=== PATIENT | female | born 1960 | race Caucasian/White ===

== ENCOUNTER 2018-08-31 12:32 | Emergency (ER) | payer SELFPAY ==
[2018-08-31 13:13] LABS: Bilirubin Negative (Negative); Blood, Urine Negative (Negative); Clarity CLEAR (Clear); Glucose, Urine (Dipstick) Negative (Negative); Leukocyte Negative (Negative); Nitrite Negative (Negative); Protein, Urine (Dipstick) Negative (Neg-Trace); Specific Gravity, Urine 1.009 (1.002-1.036); Urobilinogen 0.2 mg/dL (0.2-1.0); pH, Urine 6.5 (5.0-9.0)
[2018-08-31] MEDS ORDERED: Ketorolac Tromethamine 60 MG/2 ML VIAL ONE (13:35)
--- NOTE | 2018-08-31 14:26 | CT ---
CT OF ABDOMEN AND PELVIS: Date: 08-31-18 Comparison: None. History: Right sided flank pain. Technique: Axial CT imaging at 5 mm intervals from lung bases through pubic symphysis without contras t. Coronal reformatted imaging obtained. FINDINGS: The lack of contrast media limits assessment of the imaged viscera, bowel, vascular structures, and f or lymphadenopathy. The imaged lung bases are unremarkable. No free intraperitoneal air or fluid is evident. There is a nonspecific lesion within the left lobe of the liver which measures at least 7.7 cm in tra nsverse dimension. Its internal Hounsfield units are approximately 35-40, evidence of a solid mass. N o internal calcification or gas. Limited assessment demonstrates no additional liver lesion. Gallbladder, spleen, pancreas, adrenal glands and kidneys are unremarkable. No evidence for obstructive uropathy or nephrolithiasis is appreciated on either side. There is incompletely assessed scattered atherosclerotic calcification of the abdominal aorta and its branches. There is focal ectasia of the infrarenal abdominal aorta noted. There is diverticulosis of the sigmoid colon with no evidence for diverticulitis. Partially imaged appendix appears grossly unremarkable. Review of the osseous structures demonstrates no acute findings. IMPRESSION: 1. No evidence for obstructive uropathy or nephrolithiasis. Diverticulosis of the colon noted with no evidence for diverticulitis. 2. Appendix appears grossly unremarkable. 3. Oval homogenous solid mass within the left lobe of the liver for which follow up imaging is requir ed. Recommend contrast enhanced MRI of the abdomen using hepatic mass protocol for full assessment. Dr. Hughes made aware at 1:45 p.m. 08-31-18. Code CR POS: [facility]
== END 2018-08-31 13:59 | disposition home or self-care (01) ==
LOC: ERS 12:32
DX: R10.9 Unspecified abdominal pain (principal)
CPT/HCPCS: 74176; 81003; 96372; J1885

== ENCOUNTER 2018-09-29 08:48 | Outpatient (CLI) | payer OTHER ==
--- NOTE | 2018-09-29 15:41 | PET ---
PET CT FROM SKULL TO MID THIGH: INDICATION: History of left upper lobe lung malignancy. RADIOPHARMACEUTICAL: 11.5 mCi F18-FDG IV. TECHNIQUE: PET CT images were obtained from the skull to mid thigh following introduction of the radiopharmaceut ical. CT images were obtained for attenuation correction purposes only. FINDINGS: The biodistribution for the examination appears acceptable. CHEST: There is a very large left suprahilar mass with associated mediastinal invasion measuring 8.3 cm in s ize with a peak SUV uptake of 8.37 and mean uptake of 6.79. There is left upper lobe collapse. There is a moderate left pleural effusion with no associated hypermetabolic activity. There are hypermetabolic lymph nodes seen within the mediastinum superiorly, as well as within the le ft infrahilar region. The left infrahilar hypermetabolic node is seen adjacent to the left pulmonary vein with peak SUV uptake of 4.61 and mean uptake of 3.79. There are numerous supraclavicular hyperme tabolic lymph nodes and left axillary lymph nodes. One of the largest left supraclavicular lymph node s is seen on axial image 58 measuring 3.5 cm with a mean uptake of 6.54 and peak uptake of 7.81. Ther e is an extrapleural hypermetabolic nodule seen involving the left lung apex on axial image 59 with a peak SUV uptake of 4.92. There is scattered emphysema. No hypermetabolic pulmonary nodule is seen in volving the right lung. There are prominent areas of scarring involving the right lung apex. Abdomen/Pelvis: There is a large hypermetabolic mass involving the left hepatic lobe measuring 7.0 cm with a peak act ivity of 8.02 and mean activity of 6.43. No additional hypermetabolic mass is evident. There is back ground enteric and renal collecting system activity. Skin/Osseous Structures: There is a hypermetabolic, partially lytic lesion involving the right acetabulum on axial image 203 w ith a peak activity of 5.07 and mean activity of 5.04. There is prominent activity seen diffusely thr oughout the T10 vertebral body without overt evidence of fracture. No additional hypermetabolic skin or osseous lesion is identified. IMPRESSION: Abnormal PET scan: 1. Hypermetabolic left suprahilar mass with hypermetabolic left hilar, superior mediastinal, left madden praclavicular, and left axillary lymph nodes. 2. Osseous metastatic disease to the T10 vertebral body, as well as the right acetabulum. 3. Large left hepatic lobe mass lesion that is hypermetabolic, suspicious for hepatic metastatic dis ease. 4. Moderate left pleural effusion without evidence of hypermetabolic activity. There is complete lef t upper lobe collapse due to the large left suprahilar mass lesion. POS: [facility]
== END 2018-09-29 08:49 | disposition home or self-care (01) ==
LOC: MRI 08:48
PROVIDERS: ATTEND Internal Medicine Hematology & Oncology
DX: C34.12 Malignant neoplasm of upper lobe, left bronchus or lung (principal); R16.0 Hepatomegaly, not elsewhere classified; R91.8 Other nonspecific abnormal finding of lung field; C79.51 Secondary malignant neoplasm of bone; J90 Pleural effusion, not elsewhere classified
CPT/HCPCS: 70553; 74183; 78815; A9552

== ENCOUNTER 2018-10-03 09:00 | Outpatient (CLI) | payer OTHER ==
[2018-10-03] MEDS ORDERED: Gadobenate Dimeglumine 529 MG/1 ML (20ML VIAL) ONE (11:24)
--- NOTE | 2018-10-03 12:19 | MRI ---
MRI BRAIN WITH AND WITHOUT CONTRAST: Date: 10/03/18 INDICATION: History of pulmonary malignancy. Clinical evaluation for staging/metastasis. No prior imaging compari son available. FINDINGS: There is no evidence of ventriculomegaly, significant intracranial mass effect, or midline shift. No acute territorial infarction or evidence of intracranial hemorrhage. There is a subtle signal abnorma lity focus of the left occipital lobe with punctate restricted effusion and faint hyperintensity on p ostcontrast imaging within this region indicating a tiny enhancing metastatic lesion. No additional s ites of pathologic intra-axial enhancement are confirmed. The skull base flow-voids are maintained. T here is limited evaluation by motion artifact. Imaged paranasal sinuses are clear. IMPRESSION: Subtle signal abnormality focus of the left occipital lobe with possible faint enhancement, 4-5 mm in size. Early metastatic lesion is the diagnosis of exclusion. Therefore, recommend a short-term follo w-up pre and postcontrast MRI brain for continued assessment. Initial follow-up may be obtained at 4- 6 week time frame for reassessment. CODE T. POS: [facility]
--- NOTE | 2018-10-03 15:26 | MRI ---
MRI OF THE ABDOMEN WITH AND WITHOUT CONTRAST: INDICATION: History of lung cancer and metastatic disease. COMPARISON: PET CT 09/29/[address] of the abdomen and pelvis dated 08/31/2018. TECHNIQUE: Multiplanar, multisequence MR images were obtained of the abdomen utilizing liver mass protocol. 10 cc of MultiHance were utilized for the exam. FINDINGS: There is a large enhancing 7.8 x 6.0 x 7.8 cm mass within the left hepatic lobe corresponding to the hepatic metastatic lesion seen on the prior PET CT. No additional focal hepatic lesion is evident. There is an osseous metastatic lesion at the T10 vertebral level. No lymphadenopathy is evident. Th ere is a large left pleural effusion. IMPRESSION: 1. Koby left hepatic lobe metastatic lesion with heterogeneous internal and peripheral enhancement. 2. T10 vertebral body metastatic lesion. 3. Large left pleural effusion. POS: [facility]
== END 2018-10-03 09:01 | disposition home or self-care (01) ==
LOC: MRI 09:00
PROVIDERS: ATTEND Internal Medicine Hematology & Oncology
DX: C34.12 Malignant neoplasm of upper lobe, left bronchus or lung (principal); R16.0 Hepatomegaly, not elsewhere classified; C78.7 Secondary malignant neoplasm of liver and intrahepatic bile duct; J90 Pleural effusion, not elsewhere classified; C79.51 Secondary malignant neoplasm of bone; G93.89 Other specified disorders of brain
CPT/HCPCS: 70553; 74183; A9579

== ENCOUNTER 2018-10-03 11:12 | Outpatient (CLI) | payer OTHER, SELFPAY ==
[2018-10-03 13:07] LABS: #Basophils 0.1 thou/uL (0.0-0.2); #Eosinphils 0.1 thou/uL (0.0-0.7); #Lymphocytes 1.7 thou/uL (1.20-3.40); #Monocytes 0.9 thou/uL (0.11-0.59); #Neutrophils 8.3 thou/uL (1.40-6.50); %Basophils 0.9 % (0.0-1.0); %Eosinophils 0.7 % (0.0-10.0); %Lymphocytes 15.5 % (21.0-51.0); %Monocytes 8.2 % (0.0-10.0); %Neutrophils 74.7 % (42.0-75.0); Hemoglobin 14.1 g/dL (12.0-16.0); Mean Corpuscular HGB CONC 34.4 g/dL (32.0-36.0); Mean Corpuscular Hemoglobin 33.3 pg (27.0-31.0); Mean Corpuscular Volume 96.8 fL (78.0-98.0); Mean Platelet Volume 6.7 fL (7.4-10.4); Platelet Count 521 thou/uL (130-400); RBC Distribution Width 13.2 % (11.5-14.5); Red Blood Cell (RBC) Count 4.22 mill/uL (4.20-5.40); White Blood Cell (WBC) Count 11.1 thou/uL (4.8-10.8)
[2018-10-03 13:30] LABS: Anion Gap 13 mmol/L (10-20); BUN (Urea Nitrogen) 11 mg/dL (9.8-20.1); Calc. Creatinine Clearance 0 mL/min (70-130); Calcium 9.1 mg/dL (7.8-10.44); Carbon Dioxide 26 mmol/L (22-29); Chloride 101 mmol/L (98-107); Estimated GFR-MDRD Greater than 90; Glucose 89 mg/dL (70-105); Potassium 3.9 mmol/L (3.5-5.1); Sodium 136 mmol/L (136-145)
--- NOTE | 2018-10-03 14:33 | RAD ---
CHEST 2 VIEWS: HISTORY: Lung cancer. FINDINGS: There is an opacity in the left perihilar region compatible with a left lung mass. There are diminis hed lung volumes with elevation of the left hemidiaphragm. There is compensatory hyperinflation of t he right lung. Emphysematous changes in the right lung apex are noted. There is no pneumothorax or acute osseous abnormalities. IMPRESSION: Left hilar mass with associated findings as described above. POS: [facility]
== END 2018-10-03 11:13 | disposition home or self-care (01) ==
LOC: LABBT 11:12
PROVIDERS: ATTEND Specialist
DX: Z01.818 Encounter for other preprocedural examination (principal); C80.1 Malignant (primary) neoplasm, unspecified; R91.8 Other nonspecific abnormal finding of lung field
CPT/HCPCS: 71046; 80048; 85025; 93005; 93010

== ENCOUNTER 2018-10-04 10:22 | Day surgery (SDC) | payer OTHER ==
[2018-10-04] MEDS ORDERED: Ketorolac Tromethamine 30 MG/ML VIAL ONE (10:51)
[2018-10-04] MEDS ORDERED: CEFAZOLIN 2 GM/50 ML BAG ONE (10:51)
[2018-10-04] MEDS ORDERED: Fentanyl 100 MCG/2 ML VIAL ONE (13:02)
[2018-10-04] MEDS ORDERED: Propofol 500 MG/50 ML VIAL ONE (13:02)
[2018-10-04] MEDS ORDERED: Lidocaine 2% Jelly 5 ML TUBE ONE (13:02)
[2018-10-04] MEDS ORDERED: Bupivacaine/Epinephrine 0.25% 30 ML VIAL ONE (13:05)
[2018-10-04] MEDS ORDERED: Lidocaine 1% (PF) 30 ML VIAL ONE (13:05)
[2018-10-04] MEDS ORDERED: PROPOFOL 200 MG/20 ML VIAL ONE (14:21)
--- NOTE | 2018-10-04 15:22 | RAD ---
CHEST ONE VIEW: HISTORY: Mediport catheter placement. COMPARISON: Prior day's study. FINDINGS: A left hilar mass density is again noted. Slightly increased density over the left chest is probably just related to the difference in technique. There has been interval placement of a right-sided Med iport catheter. The catheter tip overlies the superior vena cava. I do not see any signs of pneumot horax. IMPRESSION: Interval placement of right-sided Mediport catheter. No signs of pneumothorax. POS: [facility]
--- NOTE | 2018-10-04 21:19 | OP ---
DATE OF PROCEDURE: 10/04/2018 PREOPERATIVE DIAGNOSIS: Left lung cancer, metastatic to liver. POSTOPERATIVE DIAGNOSIS: Left lung cancer, metastatic to liver. OPERATION PERFORMED: Placement of low-profile right subclavian power compatible MediPort. ANESTHESIA: Total intravenous anesthesia per Malu Taylor CRNA INDICATIONS: The patient is a 58-year-old white female, who presents with apparent metastatic lung cancer. MediPort placement is requested for chemotherapy administration. DESCRIPTION OF OPERATION: Informed consent was obtained. The patient was taken to the operating room where total intravenous anesthesia was obtained with the patient in supine position. Right periclavicular area was prepped with ChloraPrep and draped in sterile fashion. Local anesthetic was infiltrated and a large-gauge needle was passed under the clavicle in the subclavian vein. Guidewire was passed through the needle and fluoroscopically confirmed to enter the superior vena cava. Additional local anesthetic was infiltrated and transverse incision was created based on needle insertion site. A subcutaneous pocket was dissected inferiorly. Introducer dilator was passed over the guidewire under fluoroscopic guidance. The guidewire and dilator were removed, and the catheter was passed through the introducer. The tip of the catheter was positioned at the atriocaval junction and the catheter was trimmed to the appropriate length and secured to the locking hub of the MediPort. The port was then placed in the subcutaneous pocket where it was secured to the pectoral fascia with 2 interrupted sutures of 3-0 Prolene. The incision was then closed in layers with 3-0 and 4-0 Monocryl. Additional local anesthetic was infiltrated. The port was cannulated with a Xiao needle and it aspirated blood freely and was flushed with heparinized saline. Dermabond was placed externally on the skin incision. There were no complications. Blood loss was negligible. The patient tolerated the procedure well and was taken to recovery room in stable condition. FINDINGS: The port was placed uneventfully into the right subclavian vein. A low-profile power compatible port was selected. She had typical anatomy internally and externally. There was essentially no blood loss and no complications. Postprocedure chest x-ray shows good position of the port and catheter. Job ID: [id number]
== END 2018-10-04 18:30 | disposition home or self-care (01) ==
LOC: SDC 10:22
PROVIDERS: ATTEND Specialist
PROC: B518ZZA Fluoroscopy of Superior Vena Cava, Guidance (ICD-10-PCS; principal; 2018-10-04)
PROC: 02HV33Z Insertion of Infusion Device into Superior Vena Cava, Percutaneous Approach (ICD-10-PCS; principal; 2018-10-04)
DX: C34.92 Malignant neoplasm of unspecified part of left bronchus or lung (principal); C78.7 Secondary malignant neoplasm of liver and intrahepatic bile duct; Z90.710 Acquired absence of both cervix and uterus; Z98.890 Other specified postprocedural states
CPT/HCPCS: 71045; C1788; J0131; J1642; J1885; J2001; J2704; J3010

== ENCOUNTER 2018-10-12 17:50 | Inpatient (IN) | payer OTHER, SELFPAY ==
[~2018-10-12 17:50] MED LIST: ISOVUE-370 76%-LOCM 1 ML ONE
[2018-10-12 18:27] LABS: #Basophils 0.1 thou/uL (0.0-0.2); #Eosinphils 0.1 thou/uL (0.0-0.7); #Lymphocytes 1.4 thou/uL (1.20-3.40); #Neutrophils 10.5 thou/uL (1.40-6.50); %Basophils 0.8 % (0.0-1.0); %Eosinophils 0.4 % (0.0-10.0); %Lymphocytes 10.5 % (21.0-51.0); %Monocytes 7.8 % (0.0-10.0); %Neutrophils 80.5 % (42.0-75.0); Hemoglobin 14.1 g/dL (12.0-16.0); Mean Corpuscular HGB CONC 31.5 g/dL (32.0-36.0); Mean Corpuscular Hemoglobin 31.3 pg (27.0-31.0); Mean Corpuscular Volume 99.2 fL (78.0-98.0); Mean Platelet Volume 6.6 fL (7.4-10.4); Platelet Count 618 thou/uL (130-400); RBC Distribution Width 13.2 % (11.5-14.5)
[2018-10-12] MEDS ORDERED: Lorazepam 2 MG/ML VIAL ONE (18:43)
[2018-10-12 18:51] LABS: ALT (SGPT) 10 U/L (8-55); AST (SGOT) 16 U/L (5-34); Albumin 3.2 g/dL (3.5-5.0); Alkaline Phosphatase 155 U/L (40-150); Anion Gap 18 mmol/L (10-20); BUN (Urea Nitrogen) 17 mg/dL (9.8-20.1); Bilirubin, Total 0.3 mg/dL (0.2-1.2); CK (CPK) 36 U/L (29-168); Calc. Creatinine Clearance 0 mL/min (70-130); Calcium 9.4 mg/dL (7.8-10.44); Carbon Dioxide 21 mmol/L (22-29); Chloride 102 mmol/L (98-107); Estimated GFR-MDRD Greater than 90; Glucose 96 mg/dL (70-105); Potassium 4.6 mmol/L (3.5-5.1); Protein, Total 7.2 g/dL (6.0-8.3); Sodium 136 mmol/L (136-145)
--- NOTE | 2018-10-12 19:53 | RAD ---
FRONTAL RADIOGRAPH CHEST 10/12/18 COMPARISON: 10/04/18 HISTORY: Mediport placement, lung cancer. FINDINGS: CT injectable right sided Port-A-Cath noted, distal tip overlying the expected location of the cavoat rial junction. Anatomy is distorted secondary to rotation to the left as well as near complete opacif ication of the left hemithorax with associated volume loss. Findings are consistent with underlying m ass lesion in the left hilar region with extensive opacity involving the left lung and associated lef t pleural fluid. No pneumothorax is evident. IMPRESSION: Right sided CT injectable Port-A-Cath. Near complete opacification of the left hemithorax. POS: [facility]
--- NOTE | 2018-10-12 21:09 | CT ---
CT ANGIOGRAM CHEST 10/12/18 COMPARISON: None. HISTORY: Shortness of breath, history of lung cancer. TECHNIQUE: Axial CT imaging at 2.5 mm intervals through the chest with IV contrast using CT angiogram protocol. Coronal and oblique sagittal 3D reformatted imaging obtained. FINDINGS: Extensive bulky lymphadenopathy is noted in the left axillary region, with lymph nodes measuring up t o 3.4 cm in short axis dimension. There are numerous enlarged nodes in the supraclavicular region on the left, including a node abutting the lateral aspect of the left lobe of the thyroid gland measurin g 2.5 cm. There is a large soft tissue mass within the superior mediastinum measuring at least 6.6 cm in AP dim ension and 4.9 cm in transverse dimension encircling the proximal aspect of the left common carotid a rtery and the left subclavian artery. There is a huge mass which is difficult to accurately measure w ithin the left and suprahilar region abutting the pulmonary arterial trunk on the left which measures at least 6 cm in AP dimension. No axillary lymphadenopathy noted on the right. No right hilar adenopathy. Review of the upper abdomen demonstrates a vague low density lesion within the left lobe of the liver measuring at least 7.8 cm in transverse dimension suspicious for metastatic disease, better assessed on PET CT performed 09/29/18. There is a large left sided pleural effusion with partial collapse of the left lower lobe. Tumor completely encircles the pulmonary artery supplying the left lung with marked narrowing of the pulmonary artery supplying the left lung. There is obliteration of the pulmonary artery supplying the left upper lobe secondary to probable invasion and/or obstruction from a huge left upper lobe mass l esion. Tumor replaces the majority of the left upper lobe. There is no feeling defect seen within the pulmonary arterial vasculature supplying the left lower lobe. The pulmonary arterial vasculature on the right appears unremarkable. The right lung demonstrates a nonspecific pleural based nodule within the superior segment right lowe r lobe on image 54 measuring 6 mm. There are prominent emphysematous changes noted within the right l braulio apex with apical pleural thickening and fibrotic change involving the superior most aspect of the right upper lobe in the right lung apex, better assessed on the 09/29/[address]. Ill-defined soft tissue mass is seen along the right lateral aspect of the T10 vertebral body extendi ng into the region of the neural foramen on the right at T10-11, suggesting metastatic disease. [place] us metastatic disease better assessed on recent PET scan. IMPRESSION: There is extensive malignancy which includes bulky axillary and supraclavicular adenopathy on the lef t, large infiltrating mediastinal mass lesion on the left with mass lesion in the left hilum extendin g into the left upper lobe. Left liver lesion and lesion associated with the right lateral aspect of T10 vertebral body are consistent with metastatic disease. Left pleural effusion noted, presumably ma lignant in nature. There is no discrete pulmonary arterial filling defect. Of note, secondary to extr insic mass effect, there is severe narrowing of the main pulmonary artery on the left and there is ob literation of the pulmonary arterial vasculature supplying the left upper lobe. POS: [facility]
[2018-10-12] MEDS ORDERED: Morphine 4 MG/ML VIAL ONE (21:12)
[2018-10-13] MEDS ORDERED: Ondansetron ODT 4 MG TAB SL PRN (01:19)
[2018-10-13] MEDS ORDERED: Ondansetron PF 4 MG/2 ML Vial IVP PRN (01:19)
[2018-10-13] MEDS ORDERED: Acetaminophen 325 MG TAB PO PRN (01:19)
[2018-10-13] MEDS: HYDROcodone/Acetaminophen 7.5/325 mg Tablet PO PRN ×6 (01:20→22:30)
[2018-10-13] MEDS: Sodium Chloride 0.9% 1,000 ML IV SCH ×3 (01:22→16:09)
--- NOTE | 2018-10-13 03:57 | HP ---
PRIMARY CARE PHYSICIAN: Dr. Tolentino. ONCOLOGIST: Dr. Gonzalez. CODE STATUS: The patient is a full code. CHIEF COMPLAINT: Shortness of breath. HISTORY OF PRESENT ILLNESS: Ms. Simeon is a pleasant 58-year-old female, came to the emergency room for evaluation of shortness of breath and pain with inspiration. The patient reports that she is a cancer patient and she is scheduled to start chemo and radiation in October. Reports that the night before admission, it became more difficult to breathe. Reports pain and difficulty with deep breaths, and feels like she has a hard time taking even shallow breaths. Reports productive cough with white sputum for weeks. She does, however, deny any fever or chills. Denies chest pain. Reports that she was having some right flank pain in August. With CT scan, they found a mass on her liver. Eventually, this was biopsied and she was found to have metastatic disease. She had a MediPort placed on of this month and as stated above, is scheduled to start treatment on the 25 of October. With pain and increased breathing difficulty, she was told by Dr. Gonzalez's office to come to the emergency room for evaluation. In the emergency room, when I tried to get her up and ambulate her saturations dropped in the 80s and she became tachycardic. CTA was performed to rule out a PE, which did show multiple nodules. Impression was extensive malignancy which includes bulky axillary and supraclavicular adenopathy on the left, large infiltrating mediastinal mass lesion on the left with mass lesion in the left hilum extending into the left upper lobe, left liver lesion and lesion associated with the right lateral aspect of the T10 vertebral body consistent with metastatic disease. Left pleural effusion is noted, presumably malignant in nature. No discrete pulmonary arterial filling defect. Of note, secondary to an extrinsic mass effect, severe narrowing of the main pulmonary artery in the left and obliteration of the pulmonary artery vasculature supplying the left upper lobe. Based on presentation and findings, the patient will be admitted for further management. PAST MEDICAL HISTORY: None. PAST SURGICAL HISTORY: Total hysterectomy. SOCIAL HISTORY: Lives at home with her , is a 2 pack-a-day smoker x40 years. Reports recently attempting to quit. Denies any illicit drug or alcohol use. ALLERGIES: NONE. CURRENT HOME MEDICATIONS: Include; [place] 5/325 q.6 hours as needed along with some ibuprofen 400 mg q.6 hours. REVIEW OF SYSTEMS: CONSTITUTIONAL: Denies fever or chills. EYES: Denies eye pain or vision changes. ENT: Denies rhinorrhea or sore throat. CARDIOVASCULAR: Denies chest pain or palpitations. RESPIRATORY: Reports cough. Reports shortness of breath. Reports pain with inspiration. Reports sputum which is thick and clear. Denies stridor. Denies wheezing. GI: Denies abdominal pain, constipation, nausea, or diarrhea. : Denies dysuria or hematuria. MUSCULOSKELETAL: Reports some right flank-type pain. Denies back pain. Denies fall or injury. SKIN: Denies changes. Denies rash. NEUROLOGIC: Denies mental status changes or headache. PHYSICAL EXAMINATION: VITAL SIGNS: Blood pressure 114/73, pulse is 100, respiratory rate is 22, pulse ox is 96% with 2 L of oxygen. CONSTITUTIONAL: The patient appears cachectic. Inspiratory rate is increased. Appears uncomfortable, however, she is alert and oriented to person, place, and time. HEENT: Head is atraumatic and normocephalic. Eyes; eyelids are normal to inspection. Pupils are equally round and reactive to light. ENT, nares normal. Pharynx exam normal. NECK: Normal range of motion. Trachea is midline. RESPIRATORY/CHEST: Diminished sounds on the left. Extensive rhonchi, rales. Symmetric chest movement, expansion is equal. CARDIOVASCULAR: Regular heart rate and rhythm. Heart sounds are normal. ABDOMEN: Nontender. Bowel sounds are heard. BACK: Normal range of motion. No tenderness. EXTREMITIES: Upper extremities, normal range of motion. Motor strength is normal. Sensation is intact. Pulses are equal bilaterally. Lower extremities, normal inspection, normal range of motion. Motor strength is normal. Sensation intact. Pedal pulses are equal bilaterally. No edema is noted. NEURO: The patient is oriented to person, place, and time. No focal motor or sensory deficits are noted. SKIN: Normal, dry, normal in color. IMAGING: EKG shows sinus tach, pulse 106, no ectopics. Conduction is normal. ST segments are normal. VA interval 122, QRS duration 60, QT, QTc 308, 409. PERTINENT LABORATORY DATA: BNP is 34.2, troponin is undetectable. Influenza swab was negative. CK is 36. Sodium 136, potassium 4.6, chloride 102, carbon dioxide 21, gap is 18, BUN is 17, creatinine is 0.57, estimated GFR is greater than 90, glucose is 96, calcium 9.4, bilirubin 0.3, albumin 3.2, globulin 4.0, AST 16, ALT is 10, lactic acid 1.3. White blood cell count is 13, hemoglobin is 14.1, hematocrit 44.6, and platelet count 618, mean platelet volume is 6.6, neutrophil percent 80.5, lymphocytes 10.5. ASSESSMENT/PLAN: 1. Hypoxia, most likely due to extensive malignancy in the left lung. Primarily cancer lesion is unknown to patient and/or family. We will consult Dr. Gonzalez. We will keep the patient on oxygen as needed. Order neb treatments. We will check labs in the morning. 2. Hospital course will be dependent on clinical findings. Job ID: [id number]
[2018-10-13] MEDS: Lorazepam 2 MG/ML VIAL SLOW IVP PRN ×3 (04:26→22:08)
[2018-10-13 07:40] LABS: #Eosinphils 0.1 thou/uL (0.0-0.7); #Lymphocytes 1.6 thou/uL (1.20-3.40); #Monocytes 1.1 thou/uL (0.11-0.59); #Neutrophils 8.1 thou/uL (1.40-6.50); %Basophils 0.4 % (0.0-1.0); %Eosinophils 0.6 % (0.0-10.0); %Lymphocytes 14.8 % (21.0-51.0); %Monocytes 9.9 % (0.0-10.0); %Neutrophils 74.1 % (42.0-75.0); Hemoglobin 11.4 g/dL (12.0-16.0); Mean Corpuscular HGB CONC 31.7 g/dL (32.0-36.0); Mean Corpuscular Hemoglobin 31.4 pg (27.0-31.0); Mean Corpuscular Volume 98.9 fL (78.0-98.0); Mean Platelet Volume 6.8 fL (7.4-10.4); Platelet Count 486 thou/uL (130-400); RBC Distribution Width 13.1 % (11.5-14.5); Red Blood Cell (RBC) Count 3.64 mill/uL (4.20-5.40)
[2018-10-13 07:47] LABS: ALT (SGPT) Less than 7 U/L (8-55); AST (SGOT) 14 U/L (5-34); Albumin 2.6 g/dL (3.5-5.0); Alkaline Phosphatase 125 U/L (40-150); Anion Gap 15 mmol/L (10-20); BUN (Urea Nitrogen) 15 mg/dL (9.8-20.1); Bilirubin, Total 0.3 mg/dL (0.2-1.2); Calc. Creatinine Clearance 91 mL/min (70-130); Calcium 8.3 mg/dL (7.8-10.44); Carbon Dioxide 17 mmol/L (22-29); Chloride 105 mmol/L (98-107); Estimated GFR-MDRD Greater than 90; Globulin 3.1 g/dL (2.4-3.5); Glucose 135 mg/dL (70-105); Potassium 3.5 mmol/L (3.5-5.1); Protein, Total 5.7 g/dL (6.0-8.3); Sodium 133 mmol/L (136-145)
[2018-10-13] MEDS: Famotidine 20 MG TAB PO SCH ×2 (08:27→20:16)
[2018-10-13] MEDS: Enoxaparin Sodium 30 MG/0.3 ML SYRINGE SC SCH (08:29)
[2018-10-13] MEDS ORDERED: Prevnar 13-Val Conj/PF 0.5 ML SYRINGE IM ONE (09:00)
--- NOTE | 2018-10-13 13:21 | CON ---
DATE OF CONSULTATION: 10/13/2018 REASON FOR CONSULTATION: Small cell lung cancer. HISTORY OF PRESENT ILLNESS: A 58-year-old female with history of extensive stage small cell lung cancer, presenting to the hospital with shortness of breath and pleuritic chest pain. The patient was recently diagnosed with extensive stage small cell carcinoma of the lung, status post biopsy of a left supraclavicular lymph node on September 22, 2018. The patient initially presented with right flank pain and had a CT looking for kidney stone that showed a solid mass in the left lobe of the liver. She then had a CAT scan of the chest, abdomen, and pelvis that showed a mass involving the left hilum measuring 7.7 x 4.4 cm involving the left main pulmonary artery with numerous pulmonary nodules along with supraclavicular lymphadenopathy. PET scan on September 29 showed an 8.3-cm left suprahilar mass with mediastinal invasion, left upper lobe collapse, mediastinal lymphadenopathy , left intra-hilar, supraclavicular, and axillary lymphadenopathy, and 7 cm left hepatic lobe mass with lytic lesions in the right acetabulum and T10. The patient was due to start chemotherapy on October 25 with carboplatin, TRACK REPAIR SUPERVISOR-16, and Tecentriq, however is now presenting to the hospital with increasing shortness of breath and hypoxia. The patient says that this has worsened in the last few days along with chest pain that is worse with inspiration. She denies any fevers or chills at this time. Her right flank pain is severe but stable. The patient called my office yesterday and was instructed to go to the ER for evaluation. The patient's oxygen saturations dropped in the 80s on ambulation in the ER and she became tachycardic. CT angio ruled out a pulmonary embolism, however, did show progression of disease in the chest. Since admission to the hospital, the patient's symptoms have improved and she is currently maintaining her oxygen saturation on 2 to 3 L via nasal cannula. She is also receiving breathing treatments. REVIEW OF SYSTEMS: Ten-point review of systems negative except as per HPI. PAST MEDICAL HISTORY: Extensive stage small cell carcinoma. PAST SURGICAL HISTORY: Total hysterectomy. SOCIAL HISTORY: Smokes 2 pack a day for the last 40 years. ALLERGIES: NONE. CURRENT MEDICATIONS: Reviewed. PHYSICAL EXAMINATION: VITAL SIGNS: Temperature 97.2, pulse 92, respirations 16, saturating 96% on 2 L by nasal cannula, and blood pressure 103/68. GENERAL APPEARANCE: The patient is lying in bed, in no acute distress, currently receiving breathing treatment. HEENT: Normocephalic, atraumatic. No scleral icterus noted. NECK: Supple. CARDIOVASCULAR: S1 and S2 with regular rate and rhythm. RESPIRATIONS: Markedly diminished breath sounds in the left lung avery with extensive rhonchi. Respirations are mildly labored. ABDOMEN: Soft, nondistended, and nontender. EXTREMITIES: No edema. SCDs are in place. NEUROLOGIC: Cranial nerves II through XII are grossly intact and otherwise nonfocal examination. PSYCHIATRIC: The patient is anxious, but awake, alert, and oriented x3. LABORATORY DATA: White blood cells 11.0, hemoglobin 11.4, and platelets 486. Sodium 133, potassium 3.5, BUN 15, creatinine 0.58, and glucose 116. Albumin 2.6, bilirubin 0.3, AST 14, ALT less than 7, and alkaline phosphatase 125. Troponin less than 0.010. BNP 34.2. IMAGING DATA: CT angio of the chest dated October 12, 2018 shows extensive malignancy including bulky axillary and supraclavicular adenopathy on the left, large infiltrating mediastinal mass lesion on the left with mass lesion in the left hilum extending into the left upper lobe. Left liver lesion and lesion associated with the right lateral aspect of T10 vertebral body are consistent with metastatic disease. Left pleural effusion noted, presumably malignant. There is no discrete pulmonary arterial filling defect. Though of note secondary to extrinsic mass effect, there is severe narrowing of the main pulmonary artery on the left and there is obliteration of the pulmonary arterial vasculature supplying in the left upper lobe. ASSESSMENT AND PLAN: A 58-year-old female with extensive stage small cell lung cancer with mets to liver, bone, and supraclavicular and axillary lymphadenopathy, presenting to the hospital with worsening shortness of breath and hypoxia. The patient is currently stable on oxygen by nasal cannula, however, has progressively worsened over the last week and requires initiation of chemotherapy at this time. I have discussed this with the patient. I spoke to the Oncology nurses and the pharmacy and her chemotherapy will be ready tomorrow and would like to start at this time. She will receive carboplatin and TRACK REPAIR SUPERVISOR-16, however, Tecentriq is not able to be acquired emergently due to cost and we will plan to give this with her 2nd cycle of chemotherapy. Recommend monitoring her blood counts daily with transfusion goals of hemoglobin greater than 70 and platelets greater than 50, though at this time, I do not believe these will become an issue during this hospitalization. We will support her with Fulphila on day 4 of treatment. We will continue to monitor her symptoms and recommend ongoing oxygen and breathing treatments at this time. Thank you for this consult. Job ID: [id number] MTDD
--- NOTE | 2018-10-13 14:45 | PDOC.PN ---
- Subjective Encounter Start Date: 10/13/18 Encounter Start Time: 10:30 Subjective: pt up in bed no complains - Objective Resuscitation Status - Order Detail: 10/12/18 23:41 Resuscitation Status Routine Co-Sign Provider: Resuscitation Status: FULL: Full Resuscitation Discussed with: patient and family Vital Signs & Weight: Vital Signs (12 hours) Temp Pulse Resp BP Pulse Ox 10/13/18 14:41 92 18 93 L 10/13/18 11:26 97.2 F L 92 16 103/68 96 10/13/18 08:12 96 10/13/18 08:10 95 16 96 10/13/18 08:00 97.3 F L 95 16 100/67 96 Weight Weight 119 lb 14.903 oz I&O: 10/12/18 10/13/18 10/14/18 06:59 06:59 06:59 Intake Total 1 Balance 1 Result Diagrams: 10/13/18 06:52 10/13/18 06:52 Additional Labs: Accuchecks 10/13/18 11:26 POC Glucose 116 H Phys Exam - Physical Examination Neck: no nodes, no JVD, supple, full ROM decreased breath sound to left lung Cardiovascular: RRR, no significant murmur, no rub, gallop, irregular Dx/Plan (1) Acute respiratory failure with hypoxia Code(s): J96.01 - ACUTE RESPIRATORY FAILURE WITH HYPOXIA Status: Acute (2) Small cell carcinoma Code(s): C80.1 - MALIGNANT (PRIMARY) NEOPLASM, UNSPECIFIED Status: Acute - Plan pt to start chemo jacqueline -: will decrease iv fluids * . Review of Systems - Review of Systems Respiratory: Shortness of Breath Cardiovascular: negative: chest pain, palpitations, orthopnea, paroxysmal nocturnal dyspnea, edema, light headedness, other Gastrointestinal: negative: Nausea, Vomiting, Abdominal Pain, Diarrhea, Constipation, Melena, Hematochezia, Other Genitourinary: negative: Dysuria, Frequency, Incontinence, Hematuria, Retention , Other - Medications/Allergies Allergies/Adverse Reactions: Allergies Allergy/AdvReac Type Severity Reaction Status Date / Time No Known Allergies Allergy Verified 10/03/18 12:20 Medications: Current Medications Hydrocodone Bitart/Acetaminophen ([place] 7.5/325) 1 tab PO Q4H PRN PRN Reason: Moderate Pain (4-6) Last Admin: 10/13/18 12:38 Dose: 1 tab Albuterol/Ipratropium (Duoneb) 3 ml NEB [id number] [facility] Last Admin: 10/13/18 14:41 Dose: 3 ml Enoxaparin Sodium (Lovenox) 30 mg SC 0900 [facility] Last Admin: 10/13/18 08:29 Dose: 30 mg Famotidine (Pepcid) 20 mg PO BID [facility] Last Admin: 10/13/18 08:27 Dose: 20 mg Sodium Chloride (Normal Saline 0.9%) 1,000 mls @ 125 mls/hr IV .Q8H [facility] Last Admin: 10/13/18 08:29 Dose: 1,000 mls Lorazepam (Ativan) 1 mg SLOW IVP Q4H PRN PRN Reason: Anxiety/Agitation Last Admin: 10/13/18 04:26 Dose: 1 mg Sodium Chloride (Flush - Normal Saline) 10 ml IVF Q12HR [facility] Last Admin: 10/13/18 08:29 Dose: Not Given Sodium Chloride (Flush - Normal Saline) 10 ml IVF PRN PRN PRN Reason: Saline Flush
[2018-10-14] MEDS: HYDROcodone/Acetaminophen 7.5/325 mg Tablet PO PRN ×3 (02:48→20:18)
[2018-10-14 05:09] LABS: #Basophils 0.1 thou/uL (0.0-0.2); #Lymphocytes 1.3 thou/uL (1.20-3.40); #Monocytes 1.2 thou/uL (0.11-0.59); #Neutrophils 8.9 thou/uL (1.40-6.50); %Basophils 0.6 % (0.0-1.0); %Eosinophils 0.4 % (0.0-10.0); %Lymphocytes 11.2 % (21.0-51.0); %Monocytes 10.5 % (0.0-10.0); %Neutrophils 77.3 % (42.0-75.0); Hemoglobin 10.2 g/dL (12.0-16.0); Mean Corpuscular HGB CONC 32.2 g/dL (32.0-36.0); Mean Corpuscular Hemoglobin 31.9 pg (27.0-31.0); Mean Corpuscular Volume 99.1 fL (78.0-98.0); Mean Platelet Volume 6.8 fL (7.4-10.4); Platelet Count 442 thou/uL (130-400); Red Blood Cell (RBC) Count 3.21 mill/uL (4.20-5.40); White Blood Cell (WBC) Count 11.5 thou/uL (4.8-10.8)
[2018-10-14 05:34] LABS: ALT (SGPT) 7 U/L (8-55); AST (SGOT) 12 U/L (5-34); Albumin 2.3 g/dL (3.5-5.0); Alkaline Phosphatase 114 U/L (40-150); Anion Gap 12 mmol/L (10-20); BUN (Urea Nitrogen) 9 mg/dL (9.8-20.1); Bilirubin, Total 0.2 mg/dL (0.2-1.2); Calc. Creatinine Clearance 105 mL/min (70-130); Carbon Dioxide 21 mmol/L (22-29); Chloride 104 mmol/L (98-107); Estimated GFR-MDRD Greater than 90; Globulin 2.9 g/dL (2.4-3.5); Glucose 92 mg/dL (70-105); Potassium 3.6 mmol/L (3.5-5.1); Protein, Total 5.2 g/dL (6.0-8.3); Sodium 133 mmol/L (136-145)
[2018-10-14] MEDS: Lorazepam 2 MG/ML VIAL SLOW IVP PRN ×2 (05:49→09:48)
[2018-10-14] MEDS: Enoxaparin Sodium 30 MG/0.3 ML SYRINGE SC SCH (09:38)
[2018-10-14] MEDS: Famotidine 20 MG TAB PO SCH ×2 (09:38→20:18)
[2018-10-14] MEDS: Sodium Chloride 0.9% 1,000 ML IV SCH (09:42)
[2018-10-14] MEDS: Morphine 4 MG/ML VIAL SLOW IVP PRN ×2 (11:46→14:59)
[2018-10-14] MEDS ORDERED: Dexamethasone 10 MG/ML VIAL SLOW IVP SCH (12:15)
[2018-10-14] MEDS ORDERED: CARBOPLATIN IVPB SCH (12:15)
[2018-10-14] MEDS ORDERED: SODIUM CHLORIDE 0.9% IVPB SCH ×2 (12:15→12:30)
[2018-10-14] MEDS ORDERED: PALONOSETRON HCL 0.05 MG/ML 5 ML VIAL IVP SCH (12:15)
[2018-10-14] MEDS ORDERED: ETOPOSIDE IVPB SCH (12:30)
[2018-10-14 13:14] LABS: Uric Acid 2.9 mg/dL (2.6-6.0)
[2018-10-14 13:33] LABS: T4 5.2 ug/dL (4.87-11.72); Thyroid Stimulating Hormone 3.1786 uIU/mL (0.35-4.94)
[2018-10-14] MEDS ORDERED: Lorazepam 0.5 MG TAB PO PRN (13:33)
--- NOTE | 2018-10-14 14:38 | PDOC.PN ---
- Subjective Encounter Start Date: 10/14/18 Encounter Start Time: 11:00 Subjective: pt up in bed feels sob - Objective Resuscitation Status - Order Detail: 10/12/18 23:41 Resuscitation Status Routine Co-Sign Provider: Resuscitation Status: FULL: Full Resuscitation Discussed with: patient and family Vital Signs & Weight: Vital Signs (12 hours) Temp Pulse Resp BP Pulse Ox 10/14/18 13:17 95 24 H 96 10/14/18 12:00 97.9 F 109 H 20 117/56 L 94 L 10/14/18 08:00 2 L 10/14/18 07:48 97.9 F 99 18 110/56 L 93 L 10/14/18 06:22 87 16 94 L 10/14/18 03:43 98.6 F 90 16 98/53 L 94 L Weight Admit Weight 119 lb 14.903 oz Weight 119 lb I&O: 10/13/18 10/14/18 10/15/18 06:59 06:59 06:59 Intake Total 1 320 Balance 1 320 Result Diagrams: 10/14/18 04:06 10/14/18 04:06 Additional Labs: Accuchecks 10/13/18 17:26 POC Glucose 100 Phys Exam - Physical Examination Neck: no nodes, no JVD, supple, full ROM decreased breath sounds to left lung Cardiovascular: RRR, no significant murmur, no rub, gallop, irregular Dx/Plan (1) Acute respiratory failure with hypoxia Code(s): J96.01 - ACUTE RESPIRATORY FAILURE WITH HYPOXIA Status: Acute (2) Small cell carcinoma Code(s): C80.1 - MALIGNANT (PRIMARY) NEOPLASM, UNSPECIFIED Status: Acute - Plan pt to get chemo today -: small cell of lung with mets -: will add prn pain meds * . Review of Systems - Review of Systems Respiratory: Shortness of Breath Cardiovascular: negative: chest pain, palpitations, orthopnea, paroxysmal nocturnal dyspnea, edema, light headedness, other Gastrointestinal: negative: Nausea, Vomiting, Abdominal Pain, Diarrhea, Constipation, Melena, Hematochezia, Other Genitourinary: negative: Dysuria, Frequency, Incontinence, Hematuria, Retention , Other - Medications/Allergies Allergies/Adverse Reactions: Allergies Allergy/AdvReac Type Severity Reaction Status Date / Time No Known Allergies Allergy Verified 10/03/18 12:20 Medications: Current Medications Hydrocodone Bitart/Acetaminophen ([place] 7.5/325) 1 tab PO Q4H PRN PRN Reason: Moderate Pain (4-6) Last Admin: 10/14/18 06:47 Dose: 1 tab Albuterol/Ipratropium (Duoneb) 3 ml NEB [id number] [facility] Last Admin: 10/14/18 13:17 Dose: 3 ml Dexamethasone (Decadron) 10 mg SLOW IVP [facility] Stop: 10/14/18 21:00 Enoxaparin Sodium (Lovenox) 30 mg SC 0900 [facility] Last Admin: 10/14/18 09:38 Dose: 30 mg Famotidine (Pepcid) 20 mg PO BID [facility] Last Admin: 10/14/18 09:38 Dose: 20 mg Sodium Chloride (Normal Saline 0.9%) 1,000 mls @ 50 mls/hr IV .Q20H [facility] Last Admin: 10/14/18 09:42 Dose: 1,000 mls Carboplatin 506.7 mg/ Sodium (Chloride) 300.67 mls @ 400.893 mls/hr IVPB [facility] Stop: 10/14/18 21:00 Etoposide 158 mg/ Sodium (Chloride) 507.9 mls @ 507.9 mls/hr IVPB [facility] Stop: 10/14/18 21:00 Etoposide 158 mg/ Sodium (Chloride) 507.9 mls @ 507.9 mls/hr IVPB [facility] Stop: 10/15/18 21:00 Etoposide 158 mg/ Sodium (Chloride) 507.9 mls @ 507.9 mls/hr IVPB [facility] Stop: 10/16/18 21:00 Lorazepam (Ativan) 0.5 mg PO Q4H PRN PRN Reason: Anxiety Lorazepam (Ativan) 1 mg PO Q4H PRN PRN Reason: Anxiety/Agitation Morphine Sulfate (Morphine) 4 mg SLOW IVP Q4H PRN PRN Reason: Mild-Moderate Pain (1-5) Last Admin: 10/14/18 11:46 Dose: 4 mg Palonosetron (Aloxi) 0.25 mg IVP [facility] Stop: 10/14/18 21:00 Pegfilgrastim-jmdb (Fulphila) 6 mg SQ 1200 [facility] Stop: 10/17/18 23:59 Senna/Docusate Sodium (Senokot S) 1 tab PO BID [facility] Sodium Chloride (Flush - Normal Saline) 10 ml IVF Q12HR [facility] Last Admin: 10/14/18 11:50 Dose: 10 ml Sodium Chloride (Flush - Normal Saline) 10 ml IVF PRN PRN PRN Reason: Saline Flush
[2018-10-14] MEDS: Lorazepam 1 MG TAB PO PRN (14:59)
[2018-10-14] MEDS: Senokot S 8.6-50 MG TAB PO SCH (20:19)
[2018-10-15] MEDS: Lorazepam 1 MG TAB PO PRN ×2 (04:20→20:54)
[2018-10-15] MEDS: Sodium Chloride 0.9% 1,000 ML IV SCH (06:39)
[2018-10-15] MEDS: HYDROcodone/Acetaminophen 7.5/325 mg Tablet PO PRN ×2 (06:39→12:21)
[2018-10-15] MEDS: Senokot S 8.6-50 MG TAB PO SCH ×2 (10:00→20:54)
[2018-10-15] MEDS: Enoxaparin Sodium 30 MG/0.3 ML SYRINGE SC SCH (10:00)
[2018-10-15] MEDS: Famotidine 20 MG TAB PO SCH ×2 (10:00→20:54)
[2018-10-15] MEDS ORDERED: Bisacodyl 5 MG TAB PO PRN (10:43)
[2018-10-15] MEDS ORDERED: Polyethylene Glycol 3350 17 GM Packet PO SCH (11:00)
[2018-10-15] MEDS ORDERED: ETOPOSIDE IVPB SCH (12:30)
[2018-10-15] MEDS ORDERED: SODIUM CHLORIDE 0.9% IVPB SCH (12:30)
[2018-10-15] MEDS ORDERED: Dexamethasone 10 MG in Sodium Chloride 0.9% 50 ML IVPB SCH (13:45)
--- NOTE | 2018-10-15 13:57 | PDOC.PN ---
- Subjective Encounter Start Date: 10/15/18 Encounter Start Time: 10:30 Subjective: pt up in bed feels a bit sob - Objective Resuscitation Status - Order Detail: 10/12/18 23:41 Resuscitation Status Routine Co-Sign Provider: Resuscitation Status: FULL: Full Resuscitation Discussed with: patient and family Vital Signs & Weight: Vital Signs (12 hours) Temp Pulse Resp BP Pulse Ox 10/15/18 13:10 90 L 10/15/18 13:03 88 L 10/15/18 13:02 104 H 24 H 10/15/18 12:28 103 H 24 H 89 L 10/15/18 12:18 97.7 F 102 H 103/52 L 10/15/18 10:04 89 22 H 100/50 L 93 L 10/15/18 08:00 97.7 F 84 20 93/51 L 93 L 10/15/18 06:16 93 L 10/15/18 06:13 88 24 H 10/15/18 04:00 97.8 F 88 20 105/59 L 88 L Weight Admit Weight 119 lb 14.903 oz Weight 119 lb I&O: 10/14/18 10/15/18 10/16/18 06:59 06:59 06:59 Intake Total 1930 Balance 1930 Result Diagrams: 10/14/18 04:06 10/14/18 04:06 Phys Exam - Physical Examination Neck: no nodes, no JVD, supple, full ROM decreased breath sound to left lung Cardiovascular: RRR, no significant murmur, no rub, gallop, irregular Gastrointestinal: soft, non-tender, no distention, positive bowel sounds Dx/Plan (1) Acute respiratory failure with hypoxia Code(s): J96.01 - ACUTE RESPIRATORY FAILURE WITH HYPOXIA Status: Acute (2) Small cell carcinoma Code(s): C80.1 - MALIGNANT (PRIMARY) NEOPLASM, UNSPECIFIED Status: Acute - Plan pt started chemo yestarday -: will continue to monitor -: pt on 3.5L of oxygen -: hh stable will monitor * . Review of Systems - Review of Systems Respiratory: Shortness of Breath Cardiovascular: negative: chest pain, palpitations, orthopnea, paroxysmal nocturnal dyspnea, edema, light headedness, other Gastrointestinal: negative: Nausea, Vomiting, Abdominal Pain, Diarrhea, Constipation, Melena, Hematochezia, Other Genitourinary: negative: Dysuria, Frequency, Incontinence, Hematuria, Retention , Other - Medications/Allergies Allergies/Adverse Reactions: Allergies Allergy/AdvReac Type Severity Reaction Status Date / Time No Known Allergies Allergy Verified 10/03/18 12:20 Medications: Current Medications Hydrocodone Bitart/Acetaminophen ([place] 7.5/325) 1 tab PO Q4H PRN PRN Reason: Moderate Pain (4-6) Last Admin: 10/15/18 12:21 Dose: 1 tab Albuterol/Ipratropium (Duoneb) 3 ml NEB Q6H PRN PRN Reason: Dyspnea/Wheezing/SOB Last Admin: 10/15/18 13:02 Dose: 3 ml Bisacodyl (Dulcolax) 10 mg PO DAILYPRN PRN PRN Reason: Constipation Enoxaparin Sodium (Lovenox) 30 mg SC 0900 [facility] Last Admin: 10/15/18 10:00 Dose: 30 mg Famotidine (Pepcid) 20 mg PO BID [facility] Last Admin: 10/15/18 10:00 Dose: 20 mg Sodium Chloride (Normal Saline 0.9%) 1,000 mls @ 50 mls/hr IV .Q20H [facility] Last Admin: 10/15/18 06:39 Dose: 1,000 mls Etoposide 158 mg/ Sodium (Chloride) 507.9 mls @ 507.9 mls/hr IVPB ONE [facility] Stop: 10/15/18 21:00 Etoposide 158 mg/ Sodium (Chloride) 507.9 mls @ 507.9 mls/hr IVPB ONE [facility] Stop: 10/16/18 21:00 Dexamethasone 10 mg/ Sodium (Chloride) 51 mls @ 153 mls/hr IVPB NOW [facility] Stop: 10/15/18 16:00 Dexamethasone 10 mg/ Sodium (Chloride) 51 mls @ 153 mls/hr IVPB 1200 [facility] Stop: 10/16/18 21:00 Lorazepam (Ativan) 0.5 mg PO Q4H PRN PRN Reason: Anxiety Last Admin: 10/15/18 13:46 Dose: 0.5 mg Lorazepam (Ativan) 1 mg PO Q4H PRN PRN Reason: Anxiety/Agitation Last Admin: 10/15/18 04:20 Dose: 1 mg Morphine Sulfate (Morphine) 4 mg SLOW IVP Q4H PRN PRN Reason: Mild-Moderate Pain (1-5) Last Admin: 10/14/18 14:59 Dose: 4 mg Pegfilgrastim-jmdb (Fulphila) 6 mg SQ 1200 [facility] Stop: 10/17/18 23:59 Polyethylene Glycol (Miralax) 17 gm PO DAILY [facility] Senna/Docusate Sodium (Senokot S) 1 tab PO BID [facility] Last Admin: 10/15/18 10:00 Dose: 1 tab Sodium Chloride (Flush - Normal Saline) 10 ml IVF Q12HR [facility] Last Admin: 10/15/18 10:04 Dose: 10 ml Sodium Chloride (Flush - Normal Saline) 10 ml IVF PRN PRN PRN Reason: Saline Flush
--- NOTE | 2018-10-15 20:53 | PDOC.EVN ---
Event Note - Event Note Event Note: called by RN for pt with LUE swelling. No reported change in temperature, some tenderness. will order LUE Ultrasound to eval for DVT
[2018-10-15] MEDS: Morphine 4 MG/ML VIAL SLOW IVP PRN (20:54)
--- NOTE | 2018-10-15 22:14 | EKG ---
Test Reason : SOB Blood Pressure : / mmHG Vent. Rate : 106 BPM Atrial Rate : 106 BPM P-R Int : 122 ms QRS Dur : 060 ms QT Int : 308 ms P-R-T Axes : 066 059 038 degrees QTc Int : 409 ms Sinus tachycardia Confirmed by MALVIN OLIVIER [id number]), society editor GRAEME BAILEY ([id number] on 10/15/2018 10:14:50 PM Referred By: Confirmed By:MALVIN OLIVIER
[2018-10-16] MEDS: Morphine 4 MG/ML VIAL SLOW IVP PRN ×4 (01:05→18:45)
[2018-10-16] MEDS: Lorazepam 1 MG TAB PO PRN ×4 (01:05→18:45)
[2018-10-16] MEDS: Sodium Chloride 0.9% 1,000 ML IV SCH ×2 (01:06→21:18)
--- NOTE | 2018-10-16 08:10 | ULT ---
ULTRASOUND DOPPLER DUPLEX VENOUS LEFT UPPER EXTREMITY: HISTORY: A 58-year-old female with left upper extremity edema. TECHNIQUE: Morin scale, color flow, and spectral analysis of major veins of left upper extremity. Compression an d release applied to all interrogated veins, except the subclavian. FINDINGS: There is edema in the superficial soft tissues. The left cephalic, ulnar, radial, brachial, basilic, axillary, subclavian, and internal jugular, veins, are patent and clear. IMPRESSION: 1. No thrombosis of left upper extremity major veins. 2. Soft tissue edema of the left upper extremity. POS: [facility]
[2018-10-16] MEDS: HYDROcodone/Acetaminophen 7.5/325 mg Tablet PO PRN (08:20)
[2018-10-16] MEDS: Senokot S 8.6-50 MG TAB PO SCH ×2 (08:20→21:00)
[2018-10-16] MEDS: Famotidine 20 MG TAB PO SCH ×2 (08:20→21:00)
[2018-10-16] MEDS: Polyethylene Glycol 3350 17 GM Packet PO SCH (08:20)
[2018-10-16] MEDS: Enoxaparin Sodium 30 MG/0.3 ML SYRINGE SC SCH (08:24)
[2018-10-16] MEDS ORDERED: Dexamethasone 10 MG in Sodium Chloride 0.9% 50 ML IVPB SCH (12:00)
[2018-10-16] MEDS ORDERED: ETOPOSIDE IVPB SCH (12:30)
[2018-10-16] MEDS ORDERED: SODIUM CHLORIDE 0.9% IVPB SCH (12:30)
--- NOTE | 2018-10-16 13:51 | PDOC.PN ---
- Subjective Encounter Start Date: 10/16/18 Encounter Start Time: 13:50 Subjective: f/u for small cell lung CA initiated on chemo 10/14/18. Still remains SOB on -: NRB currently. Feels weak. - Objective Resuscitation Status - Order Detail: 10/12/18 23:41 Resuscitation Status Routine Co-Sign Provider: Resuscitation Status: FULL: Full Resuscitation Discussed with: patient and family MAR Reviewed: Yes Vital Signs & Weight: Vital Signs (12 hours) Temp Pulse Resp BP Pulse Ox 10/16/18 08:00 97.4 F L 103 H 20 109/58 L 94 L 10/16/18 06:19 96 10/16/18 06:13 95 24 H 10/16/18 04:00 94 22 H 97 Weight Admit Weight 119 lb 14.903 oz Weight 119 lb I&O: 10/15/18 10/16/18 10/17/18 06:59 06:59 06:59 Intake Total 1930 2255 Balance 1930 2255 Result Diagrams: 10/14/18 04:06 10/14/18 04:06 Additional Labs: Microbiology 10/12/18 18:27 Nasal swab Influenza Types A,B Direct EIA - Final 10/12/18 18:21 Venous blood - Left Arm Blood Culture - Preliminary NO GROWTH AT 48 HOURS 10/12/18 18:17 Venous blood - Right Arm Blood Culture - Preliminary NO GROWTH AT 48 HOURS Laboratory Tests 10/12/18 10/13/18 10/14/18 18:17 06:52 04:06 WBC 13.0 H 11.0 H TSH 3rd Generation 3.1786 Radiology Reviewed by me: Yes (CONRADE sono - neg for DVT) Phys Exam - Physical Examination frail, ill-appearing HEENT: PERRLA, sclera anicteric, oral pharynx no lesions Neck: no nodes, no JVD, supple, full ROM diminished bilat, exp wheezes bilat Respiratory: no rales tachycardic S1, S2 Cardiovascular: no significant murmur, no rub, gallop Gastrointestinal: soft, non-tender, no distention, positive bowel sounds Musculoskeletal: no edema, pulses present Neurological: normal sensation, moves all 4 limbs Psychiatric: A&O x 3 Skin: normal turgor, cap refill <2 seconds Dx/Plan (1) Metastatic lung carcinoma Code(s): C78.00 - SECONDARY MALIGNANT NEOPLASM OF UNSPECIFIED LUNG Status: Chronic Qualifiers: Laterality: left Qualified Code(s): C78.02 - Secondary malignant neoplasm of left lung Comment: Continue chemotherapy per Oncology, poor prognosis (2) Acute respiratory failure with hypoxia Code(s): J96.01 - ACUTE RESPIRATORY FAILURE WITH HYPOXIA Status: Acute Comment: Continue O2 supplementation, change Duonebs q4h, add Dulera 2puffs BID , add Solumedrol 40mg IV q6h (3) Tobacco abuse Code(s): Z72.0 - TOBACCO USE Status: Chronic Comment: Tobacco cessation resources, ? Nicotine patch (4) Macrocytic anemia Code(s): D53.9 - NUTRITIONAL ANEMIA, UNSPECIFIED Status: Chronic Comment: Check B12/Folate levels - Plan plan discussed w/ family, PT/OT, director of social media marketing, respiratory therapy, DVT proph w/SCDs Continue supportive mgmt -: Add Dulera -: Add Solumedrol -: Change Duonebs q4h -: Chemotherapy to continue this pm * AM lab: B12/Folate
[2018-10-16] MEDS ORDERED: Mometasone/Formoterol 120 PUFF INHALER INH SCH (14:45)
[2018-10-16] MEDS ORDERED: Albuterol Sulfate 1.25 MG/3 ML NEB NEB PRN (19:43)
--- NOTE | 2018-10-16 19:46 | PDOC.EVN ---
Event Note - Event Note Event Note: called by RN for sats of 83% with duoneb, pt feels some chest tightness and difficulty breathing. Pt with metastatic cancer to the chest, started chemotherapy with this hospitalization and received a dose today. Pt is confirmed a full code Pt reports improvement with the neb. Lungs - fair air movement with expiratory wheezing and decreased breath sounds thoroughout the right side, no audible rales/rhonchi. Heart - normal s1/s2 without audible murmurs. Imp: Acute hypoxic respiratory failure secondary to metastatic disease and possible other underlying lung disease Plan: ABG now stat CXR start bipap with goal sats >92% if no improvement or pt unable to tolerate, will require intubation reviewed plan of care with patient and her . discussed transfer with Pulm telephone collector for awareness of situation
[2018-10-16] MEDS: Mometasone/Formoterol 120 PUFF INHALER INH SCH (20:26)
[2018-10-16 20:31] LABS: Actual Bicarbonate (HCO3a) 28.8 mEq/L (22-28); Analyzer IN Cardio OR; Base Excess (BEa) 3.7 mEq/L (-2.0 to +3.0); CO2 Tension 45.7 mmHg (35.0-45.0); Calcium, Ionized 1.17 mmol/L (1.12-1.30); Carboxyhemoglobin (COHb) 1.5 gm% (0.0-3.0); Hemoglobin (Hb) 11.3 g/dL (12.0-16.0); Potassium - ABG Lab 4.27 mmol/L (3.70-5.30); pH, Arterial 7.42 (7.35-7.45)
[2018-10-16 20:32] LABS: ALV-art Gradient 597.975 (0-20); O2 Tension (PaO2) 57.9 mmHg (80.0-100.0); Puncture Site RRA
--- NOTE | 2018-10-16 21:41 | RAD ---
CHEST ONE VIEW: History: Dyspnea. Hypoxia. Comparison: 10-12-18 FINDINGS: Cardiac silhouette is obscured by complete opacification of the left hemithorax. There is a worsenin g right perihilar and suprahilar infiltrate. Right subclavian Mediport remains in place. Small amount of right pleural fluid. IMPRESSION: 1. Developing right central infiltrate at the perihilar and suprahilar levels. Small amount of right pleural fluid. 2. Persistent complete opacification left hemithorax. POS: [facility]
[2018-10-17] MEDS: Mometasone/Formoterol 120 PUFF INHALER INH SCH (07:42)
[2018-10-17 08:44] LABS: Hemoglobin 10.7 g/dL (12.0-16.0); Mean Corpuscular HGB CONC 32.1 g/dL (32.0-36.0); Mean Corpuscular Hemoglobin 31.7 pg (27.0-31.0); Mean Corpuscular Volume 98.7 fL (78.0-98.0); Mean Platelet Volume 6.6 fL (7.4-10.4); Platelet Count 566 thou/uL (130-400); RBC Distribution Width 12.8 % (11.5-14.5); Red Blood Cell (RBC) Count 3.38 mill/uL (4.20-5.40); White Blood Cell (WBC) Count 23.8 thou/uL (4.8-10.8)
[2018-10-17 09:00] LABS: Anion Gap 11 mmol/L (10-20); BUN (Urea Nitrogen) 12 mg/dL (9.8-20.1); Calc. Creatinine Clearance 111 mL/min (70-130); Calcium 8.8 mg/dL (7.8-10.44); Carbon Dioxide 29 mmol/L (22-29); Chloride 101 mmol/L (98-107); Estimated GFR-MDRD Greater than 90; Glucose 127 mg/dL (70-105); Sodium 137 mmol/L (136-145)
[2018-10-17] MEDS: Senokot S 8.6-50 MG TAB PO SCH ×2 (09:13→21:12)
[2018-10-17] MEDS: Enoxaparin Sodium 30 MG/0.3 ML SYRINGE SC SCH (09:13)
[2018-10-17] MEDS: Famotidine 20 MG TAB PO SCH ×2 (09:13→21:12)
[2018-10-17 09:14] LABS: Band 3 % (5-11); MDiff Complete? YES; Monocytes 1 % (0-10); Neutrophil 96 % (42-75); Platelet Morphology Comment Appears Increased; RBC Morphology Normal
[2018-10-17] MEDS: Polyethylene Glycol 3350 17 GM Packet PO SCH (09:14)
[2018-10-17 09:35] LABS: Folate (Folic Acid) 3.8 ng/mL (7.0-31.4)
--- NOTE | 2018-10-17 10:43 | CON ---
DATE OF CONSULTATION: 10/17/2018 SERVICE: Pulmonary Medicine. REASON FOR CONSULTATION: Respiratory failure. HISTORY OF PRESENT ILLNESS: The patient is a 58-year-old white female with a new diagnosis of small-cell lung cancer of the lung. This was diagnosed based on a biopsy of the neck in the ER. Roughly two weeks ago, she had a chest x-ray performed showing a left hilar mass and lung was well aerated. Over the last five days, she had onset of increasing shortness of breath that came on fairly abruptly, and progressed very quickly. She presented to the emergency department. She denied having any fevers or sputum production. She had severe dyspnea that limited her activity. In the emergency room, she had opacification of the left hemithorax. A CTA of the chest was done demonstrating no evidence of PE, but she did have significant atelectasis of the left upper lobe. The left lower lobe was still fairly well aerated. There was shift of the mediastinum to the left side suggesting atelectasis was her major issue here. She was placed on the floor. She was given some antibiotics, steroids, nebulized medications, but had progressive shortness of breath and was brought down to the ICU during a code green. The patient is dyspneic. That being said, she appears to be holding her own. She denies any current fevers, chills, cough, sputum production, nausea, vomiting, or diarrhea. PAST MEDICAL HISTORY: 1. Small cell lung cancer, very recent diagnosis. 2. Emphysema based on CT scan. 3. Tobacco abuse, ongoing at two packs per day. PAST SURGICAL HISTORY: 1. Total hysterectomy. 2. Right MediPort placement. 3. Biopsy of neck lesion. SOCIAL HISTORY: She has an 80 pack-year history of smoking. She continues to smoke two packs on a daily basis. She has no exposure to alcohol or illicit drugs and denies any exposure to chemicals, dust, asbestos, or tuberculosis. FAMILY HISTORY: Non-contributory. ALLERGIES: NO KNOWN DRUG ALLERGIES. MEDICATIONS: List of her inpatient medications reviewed and updated. REVIEW OF SYSTEMS: General, head, ears, eyes, nose, throat, cardiovascular, respiratory, GI, , musculoskeletal, neurologic, and skin are negative except as mentioned in the HPI. PHYSICAL EXAMINATION: VITAL SIGNS: Afebrile, pulse 100, blood pressure is 116/68, respirations 33, saturation 92% on 80% FiO2 and PEEP of 5. GENERAL: The patient is awake and alert. She is tachypneic. She has no apparent distress otherwise. HEART: Normal rate, regular. ABDOMEN: Soft, nontender, and nondistended. Bowel sounds are positive. MUSCULOSKELETAL: No cyanosis or clubbing. There is no pitting in the bilateral lower extremities. NEUROLOGIC: Grossly nonfocal. LUNGS: There is very reduced air entry on the left side compared to the right. There is a slightly prolonged expiratory phase, but I do not hear any significant overt wheezing or rhonchi present. LABORATORY DATA: Basic metabolic profile and liver function studies are essentially unremarkable. Folate is low, B12 falls within normal limits. TSH is normal. LDH 403. Uric acid 2.9. PH 7.42, pCO2 of 45, pO2 of 57.9. WBC 23.8, hemoglobin 10.7, and platelets 566,000. Influenza A and B unremarkable. Blood cultures x2 are unremarkable. DIAGNOSTIC DATA: Chest x-ray demonstrates new jada-opacification of the left thorax. There is also shift of the mediastinum toward the left suggesting atelectasis is the main feature here. CTA of the chest demonstrates no evidence of a PE. There is a large left hilar mass causing complete atelectasis of the left upper lobe. There appears to be endobronchial disease in the left upper lobe bronchus. The left lower lobe is open, but irregular. There is infiltrate in the left lower lobe, possibly consistent with pneumonia. There is a significant amount of pleural effusion, but as previously detailed, she has shift of the mediastinum toward the left, suggesting atelectasis is creating that fluid. ASSESSMENT: 1. Small-cell lung cancer, status post initiation of recent therapy. 2. Acute hypoxic and hypercapnic respiratory failure. 3. Chronic obstructive pulmonary disease with acute exacerbation, minimal. 4. Endobronchial mass of the left upper lobe, resulting in significant atelectasis. 5. Healthcare associated pneumonia, possible. DISCUSSION AND PLAN: We will start empiric antibiotics. We will continue our BiPAP. Hopefully, we are dealing with a pseudoprogression of her cancer process. If it gets worse, she requires intubation, and bronchoscopy will be performed. We will perform a bedside thoracentesis just to see if this provides her with any relief, but my suspicion is that we are dealing with atelectasis as the driving factor here and I am guessing she will not much relief from it, still we will try. Pulmonary Critical Care will continue to follow very closely. She is very likely to progress to the point of requiring intubation. If that occurs, we will consider transition to a tertiary care center for consideration of endobronchial stent if it is appropriate. 70 minutes have been devoted to this patient in various activities. I personally reviewed all imaging studies and laboratory data noted within this document. For fifty percent of this time, I was interacting with the patient at the bedside or coordinating care with the care team. For the remainder of the time I was immediately available to the patient in the hospital unit. Job ID: [id number] MTDD
[2018-10-17] MEDS: Morphine 4 MG/ML VIAL SLOW IVP PRN ×3 (11:44→21:00)
[2018-10-17] MEDS: Piperacillin/Tazobactam 3.375 GM in Sodium Chloride 0.9% 100 ML IVPB SCH ×3 (11:47→23:07)
[2018-10-17] MEDS ORDERED: PEGFILGRASTIM-JMDB 6 MG/0.6 ML SYRINGE SQ SCH (12:00)
--- NOTE | 2018-10-17 16:45 | PDOC.PN ---
- Subjective Encounter Start Date: 10/17/18 Encounter Start Time: 15:45 Subjective: f/u for acute hypoxic resp failure on BiPAP NIMV after transfer to CCU last -: pm. Receiving chemo tx for metastatic lung CA. - Objective Resuscitation Status - Order Detail: 10/12/18 23:41 Resuscitation Status Routine Co-Sign Provider: Resuscitation Status: FULL: Full Resuscitation Discussed with: patient and family MAR Reviewed: Yes Vital Signs & Weight: Vital Signs (12 hours) Temp Pulse Resp Pulse Ox 10/17/18 15:00 97.7 F 10/17/18 14:18 105 H 26 H 94 L 10/17/18 14:17 90 22 H 93 L 10/17/18 10:00 100 30 H 92 L 10/17/18 09:59 109 H 34 H 92 L 10/17/18 08:00 91 L 10/17/18 07:42 98 33 H 92 L 10/17/18 07:40 101 H 35 H 92 L Weight Admit Weight 119 lb 14.903 oz Weight 119 lb Most Recent Monitor Data Heart Rate from ECG 104 NIBP 142/92 NIBP BP-Mean 108 Respiration from ECG 30 SpO2 92 I&O: 10/16/18 10/17/18 10/18/18 06:59 06:59 06:59 Intake Total 2255 2977.9 Output Total 600 650 Balance 2255 2377.9 -650 Result Diagrams: 10/17/18 08:20 10/17/18 08:20 Additional Labs: Microbiology 10/12/18 18:27 Nasal swab Influenza Types A,B Direct EIA - Final 10/12/18 18:21 Venous blood - Left Arm Blood Culture - Preliminary NO GROWTH AT 48 HOURS 10/12/18 18:17 Venous blood - Right Arm Blood Culture - Preliminary NO GROWTH AT 48 HOURS Laboratory Tests 10/12/18 10/13/18 10/14/18 18:17 06:52 04:06 WBC 13.0 H 11.0 H TSH 3rd Generation 3.1786 Laboratory Tests 10/14/18 10/17/18 04:06 08:20 WBC 11.5 H Vitamin B12 512 Folate 3.80 L Radiology Reviewed by me: Yes (PCXR - L hemithorax opacification, RML infiltrate ) EKG Reviewed by me: Yes (Tele - Sinus tachycardia) Phys Exam - Physical Examination ill-appearing, resp distress on BiPAP HEENT: PERRLA, sclera anicteric, oral pharynx no lesions Neck: no nodes, no JVD, supple, full ROM diminished bilat, decreased airflow in L hemithorax + tachycardia S1, S2 Cardiovascular: no significant murmur, no rub, gallop Gastrointestinal: soft, non-tender, no distention, positive bowel sounds Musculoskeletal: no edema, pulses present Neurological: normal sensation, moves all 4 limbs Psychiatric: A&O x 3 Skin: normal turgor, cap refill <2 seconds Dx/Plan (1) Acute respiratory failure with hypoxia Code(s): J96.01 - ACUTE RESPIRATORY FAILURE WITH HYPOXIA Status: Acute Comment: Continue O2 supplementation, change Duonebs q4h, add Dulera 2puffs BID , add Solumedrol 40mg IV q6h, BiPAP NIMV (2) Metastatic lung carcinoma Code(s): C78.00 - SECONDARY MALIGNANT NEOPLASM OF UNSPECIFIED LUNG Status: Chronic Qualifiers: Laterality: left Qualified Code(s): C78.02 - Secondary malignant neoplasm of left lung Comment: Continue chemotherapy per Oncology, poor prognosis (3) Tobacco abuse Code(s): Z72.0 - TOBACCO USE Status: Chronic Comment: Tobacco cessation resources, ? 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
[2018-10-17] MEDS: Sodium Chloride 0.9% 1,000 ML IV SCH (17:15)
[2018-10-18] MEDS: Morphine 4 MG/ML VIAL SLOW IVP PRN ×6 (01:07→19:19)
[2018-10-18 04:15] LABS: Hemoglobin 10.3 g/dL (12.0-16.0); Mean Corpuscular HGB CONC 31.6 g/dL (32.0-36.0); Mean Corpuscular Hemoglobin 31.4 pg (27.0-31.0); Mean Corpuscular Volume 99.3 fL (78.0-98.0); Mean Platelet Volume 6.7 fL (7.4-10.4); Platelet Count 550 thou/uL (130-400); Red Blood Cell (RBC) Count 3.28 mill/uL (4.20-5.40); White Blood Cell (WBC) Count 55.5 thou/uL (4.8-10.8)
[2018-10-18 04:30] LABS: Anion Gap 13 mmol/L (10-20); BUN (Urea Nitrogen) 17 mg/dL (9.8-20.1); Calc. Creatinine Clearance 119 mL/min (70-130); Calcium 8.5 mg/dL (7.8-10.44); Carbon Dioxide 27 mmol/L (22-29); Chloride 103 mmol/L (98-107); Estimated GFR-MDRD Greater than 90; Glucose 126 mg/dL (70-105); Potassium 3.9 mmol/L (3.5-5.1); Sodium 139 mmol/L (136-145)
[2018-10-18 04:35] LABS: Band 4 % (5-11); Hypochromia SLIGHT = 6-15 cells (100X) (0-5/hpf); Lymphocytes 1 % (21-51); MDiff Complete? YES; Monocytes 1 % (0-10); Neutrophil 94 % (42-75); Platelet Morphology Comment Appears Increased
[2018-10-18] MEDS: Piperacillin/Tazobactam 3.375 GM in Sodium Chloride 0.9% 100 ML IVPB SCH ×3 (05:05→17:47)
[2018-10-18] MEDS: Polyethylene Glycol 3350 17 GM Packet PO SCH (08:47)
[2018-10-18] MEDS: Enoxaparin Sodium 30 MG/0.3 ML SYRINGE SC SCH (08:47)
[2018-10-18] MEDS: Senokot S 8.6-50 MG TAB PO SCH ×2 (08:47→19:21)
[2018-10-18] MEDS: Famotidine 20 MG TAB PO SCH ×2 (08:47→19:21)
--- NOTE | 2018-10-18 11:12 | PRG ---
DATE OF SERVICE: 10/18/2018 SERVICE: Pulmonary Medicine. SUBJECTIVE: The patient seems to be doing okay as long as she is on BiPAP. She does not have any distress. She has not been able to tolerate any breaks. She has not had any p.o. Otherwise, there has been no interval change to her condition. She denies having any significant fevers. OBJECTIVE: VITAL SIGNS: Afebrile, pulse 92, blood pressure 140/82, respirations 25, saturations 96% on BiPAP with a PEEP of 8. HEENT: Normocephalic and atraumatic. Sclerae white. Conjunctivae pink. Oral mucosa is moist without lesions. LUNGS: Decent air entry on the right. There is decreased air entry on the left. No prolonged expiratory phase or wheezing is appreciated. HEART: Normal rate, regular. ABDOMEN: Soft, nontender, and nondistended. Bowel sounds are positive. MUSCULOSKELETAL: No cyanosis or clubbing. There is no pitting in the bilateral lower extremities. NEUROLOGIC: Grossly nonfocal. LABORATORY DATA: WBC 55.5, hemoglobin 10.3, and platelets 550,000. Neutrophil count is 94% on top of only 4% bands. Basic metabolic profile is essentially unremarkable. The creatinine is 0.44. Blood cultures x2 and influenza A and B are unremarkable. ASSESSMENT: 1. Small-cell lung cancer, status post initiation of chemotherapy with likely pseudoprogression. 2. Acute hypoxic and hypercapnic respiratory failure. 3. Chronic obstructive pulmonary disease with acute exacerbation, minimal. 4. Endobronchial mass of the left upper lobe resulting in significant atelectasis. 5. Healthcare-associated pneumonia, possible. DISCUSSION AND PLAN: At this point, we will simply continue our supportive care. If the patient decompensates further, we will likely proceed with intubation so that we can further investigate this left upper lobe lesion. We will give her BiPAP breaks through the day. Hopefully, she will be able to tolerate them. I will increase her IV fluids to maintenance rate for the next 24 hours. Job ID: [id number]
[2018-10-18] MEDS: Sodium Chloride 0.9% 1,000 ML IV SCH ×2 (11:21→11:37)
[2018-10-18] MEDS ORDERED: Folic Acid 0.4 MG in Pre-Filled Syringe 1 EACH SC SCH (11:45)
[2018-10-18] MEDS: Lorazepam 2 MG/ML VIAL SLOW IVP PRN (15:28)
--- NOTE | 2018-10-18 19:47 | PDOC.PN ---
- Subjective Encounter Start Date: 10/18/18 Encounter Start Time: 19:25 Subjective: f/u for resp failure on BiPAP NIMV in context of SCLC on current -: chemotx. Unable to wean off BiPAP. - Objective Resuscitation Status - Order Detail: 10/12/18 23:41 Resuscitation Status Routine Co-Sign Provider: Resuscitation Status: FULL: Full Resuscitation Discussed with: patient and family MAR Reviewed: Yes Vital Signs & Weight: Vital Signs (12 hours) Temp Pulse Resp Pulse Ox 10/18/18 18:34 105 H 21 H 93 L 10/18/18 18:31 97 24 H 94 L 10/18/18 15:25 93 28 H 99 10/18/18 15:22 98 27 H 99 10/18/18 15:00 97.7 F 10/18/18 12:00 97.8 F 10/18/18 10:29 92 25 H 96 10/18/18 10:28 99 25 H 96 10/18/18 07:41 86 25 H 92 L 10/18/18 07:39 102 H 25 H 92 L 10/18/18 07:35 92 L Weight Admit Weight 119 lb 14.903 oz Weight 119 lb Most Recent Monitor Data Heart Rate from ECG 107 NIBP 99/65 NIBP BP-Mean 76 Respiration from ECG 33 SpO2 94 I&O: 10/17/18 10/18/18 10/19/18 06:59 06:59 06:59 Intake Total 2977.9 1122 722 Output Total 600 1150 260 Balance 2377.9 -28 462 Result Diagrams: 10/18/18 04:06 10/18/18 04:06 Additional Labs: Microbiology 10/12/18 18:27 Nasal swab Influenza Types A,B Direct EIA - Final 10/12/18 18:21 Venous blood - Left Arm Blood Culture - Preliminary NO GROWTH AT 48 HOURS 10/12/18 18:17 Venous blood - Right Arm Blood Culture - Preliminary NO GROWTH AT 48 HOURS Laboratory Tests 10/12/18 10/13/18 10/14/18 18:17 06:52 04:06 WBC 13.0 H 11.0 H 11.5 H Plt Count 442 H Neutrophils % 77.3 H Neutrophils % (Manual) Vitamin B12 Folate TSH 3rd Generation 10/14/18 10/17/18 10/17/18 04:06 08:20 08:20 WBC 23.8 H Plt Count 566 H Neutrophils % Neutrophils % (Manual) 96 H Vitamin B12 512 Folate 3.80 L TSH 3rd Generation 3.1786 10/18/18 04:06 WBC Plt Count Neutrophils % Neutrophils % (Manual) 94 H Vitamin B12 Folate TSH 3rd Generation EKG Reviewed by me: Yes (Tele - Sinus tachycardia) Phys Exam - Physical Examination ill-appearing, resp distress, lethargic HEENT: PERRLA, sclera anicteric, oral pharynx no lesions Neck: no nodes, no JVD, supple, full ROM diminished in L field, scattered coarse sounds tachycardic S1, S2 Cardiovascular: no significant murmur, no rub, gallop Gastrointestinal: soft, non-tender, no distention, positive bowel sounds Musculoskeletal: no edema, pulses present Neurological: normal sensation, moves all 4 limbs Skin: normal turgor, cap refill <2 seconds Dx/Plan (1) Acute respiratory failure with hypoxia Code(s): J96.01 - ACUTE RESPIRATORY FAILURE WITH HYPOXIA Status: Acute Comment: Continue O2 supplementation, change Duonebs q4h, add Dulera 2puffs BID , add Solumedrol 40mg IV daily, BiPAP NIMV, appears unable to wean (2) Metastatic lung carcinoma Code(s): C78.00 - SECONDARY MALIGNANT NEOPLASM OF UNSPECIFIED LUNG Status: Chronic Qualifiers: Laterality: left Qualified Code(s): C78.02 - Secondary malignant neoplasm of left lung Comment: Continue chemotherapy per Oncology, poor prognosis (3) Tobacco abuse Code(s): Z72.0 - TOBACCO USE Status: Chronic Comment: Tobacco cessation resources, ? 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
[2018-10-19] MEDS: Morphine 4 MG/ML VIAL SLOW IVP PRN ×6 (00:08→20:05)
[2018-10-19] MEDS: Piperacillin/Tazobactam 3.375 GM in Sodium Chloride 0.9% 100 ML IVPB SCH ×4 (00:11→18:04)
[2018-10-19] MEDS: Sodium Chloride 0.9% 1,000 ML IV SCH ×2 (00:41→13:32)
[2018-10-19] MEDS: Lorazepam 2 MG/ML VIAL SLOW IVP PRN ×3 (07:58→22:22)
[2018-10-19] MEDS: Enoxaparin Sodium 30 MG/0.3 ML SYRINGE SC SCH (08:49)
[2018-10-19] MEDS: Folic Acid 0.4 MG in Pre-Filled Syringe 1 EACH SC SCH (08:49)
[2018-10-19] MEDS: Famotidine 20 MG TAB PO SCH ×2 (08:50→20:08)
[2018-10-19] MEDS: Polyethylene Glycol 3350 17 GM Packet PO SCH (08:52)
[2018-10-19] MEDS: Senokot S 8.6-50 MG TAB PO SCH ×2 (08:52→20:07)
[2018-10-19] MEDS ORDERED: clonazePAM 0.5 MG TAB PO SCH (10:00)
--- NOTE | 2018-10-19 10:26 | PRG ---
DATE OF SERVICE: 10/19/2018 SERVICE: Pulmonary Medicine. INTERVAL HISTORY: The patient is actually doing better from respiratory standpoint. She is on half of the pressure, half of the FiO2. With this, she is actually having improved oxygen saturations. She denies any current chest pain, nausea, or vomiting. She is quite anxious. She is getting intermittent doses of Ativan in order to control some of her nerves. PHYSICAL EXAMINATION: VITAL SIGNS: Afebrile, pulse 96, blood pressure 110/63, respirations 20, and saturation 96% on 40% FiO2 with a PEEP of 4 today. HEENT: Normocephalic and atraumatic. Sclerae white. Conjunctivae pink. Oral mucosa is moist without lesions. LUNGS: Decent air entry. There is no prolonged expiratory phase or wheezing present. There is actually good air entry on the left now. There is rhonchi present throughout bilateral lung avery, but are worse on the left. HEART: Tachycardic. Regular. ABDOMEN: Soft, nontender, and nondistended. Bowel sounds are positive. MUSCULOSKELETAL: No cyanosis or clubbing. There is no pitting in the bilateral lower extremities. NEUROLOGIC: Grossly nonfocal. ASSESSMENT: 1. Small-cell lung cancer, status post initial chemotherapy with likely pseudoprogression. 2. Left upper lobe endobronchial mass causing significant atelectasis in this region. 3. Acute hypoxic and hypercapnic respiratory failure, improving. 4. Chronic obstructive pulmonary disease with acute exacerbation, minimal. 5. Healthcare-associated pneumonia, possible. DISCUSSION AND PLAN: The patient is doing fine from respiratory standpoint. I will schedule dose of Klonopin in the evening time. We will continue to give her breaks off the BiPAP to see if she tolerates them. If she decompensates, intubation would be indicated as the patient will likely have a significant response to chemotherapy if we give her a little bit more time. Additionally, that would allow me to further investigate the left upper lobe lesion to see if it will be amenable to stenting. Job ID: [id number]
--- NOTE | 2018-10-19 18:42 | PDOC.PN ---
- Subjective Encounter Start Date: 10/19/18 Encounter Start Time: 18:05 Subjective: f/u for resp failure on BiPAP NIMV given trial off with high-flow -: NC tolerating 4h. States still fatigued but slightly better. Had Ensure -: today. - Objective Resuscitation Status - Order Detail: 10/12/18 23:41 Resuscitation Status Routine Co-Sign Provider: Resuscitation Status: FULL: Full Resuscitation Discussed with: patient and family MAR Reviewed: Yes Vital Signs & Weight: Vital Signs (12 hours) Temp Pulse Resp Pulse Ox 10/19/18 18:32 111 H 30 H 95 10/19/18 16:00 98.2 F 95 10/19/18 14:56 96 10/19/18 14:44 106 H 23 H 96 10/19/18 12:00 97.8 F 10/19/18 10:19 109 H 23 H 93 L 10/19/18 10:17 108 H 27 H 93 L 10/19/18 07:17 99 10/19/18 07:00 97.3 F L 10/19/18 06:48 73 24 H 96 10/19/18 06:47 96 27 H 98 Weight Admit Weight 119 lb 14.903 oz Weight 119 lb Most Recent Monitor Data Heart Rate from ECG 114 NIBP 109/69 NIBP BP-Mean 82 Respiration from ECG 23 SpO2 95 I&O: 10/18/18 10/19/18 10/20/18 06:59 06:59 06:59 Intake Total 1122 1715 1160 Output Total 1150 805 845 Balance -28 910 315 Result Diagrams: 10/18/18 04:06 10/18/18 04:06 Additional Labs: Microbiology 10/12/18 18:27 Nasal swab Influenza Types A,B Direct EIA - Final 10/12/18 18:21 Venous blood - Left Arm Blood Culture - Preliminary NO GROWTH AT 48 HOURS 10/12/18 18:17 Venous blood - Right Arm Blood Culture - Preliminary NO GROWTH AT 48 HOURS Laboratory Tests 10/12/18 10/13/18 10/14/18 18:17 06:52 04:06 WBC 13.0 H 11.0 H 11.5 H Plt Count 442 H Neutrophils % 77.3 H Neutrophils % (Manual) Vitamin B12 Folate TSH 3rd Generation 10/14/18 10/17/18 10/17/18 04:06 08:20 08:20 WBC 23.8 H Plt Count 566 H Neutrophils % Neutrophils % (Manual) 96 H Vitamin B12 512 Folate 3.80 L TSH 3rd Generation 3.1786 10/18/18 04:06 WBC Plt Count Neutrophils % Neutrophils % (Manual) 94 H Vitamin B12 Folate TSH 3rd Generation EKG Reviewed by me: Yes (Tele - Sinus tachycardia) Phys Exam - Physical Examination ill-appearing, responds to questions HEENT: PERRLA, sclera anicteric, oral pharynx no lesions Neck: no nodes, no JVD, supple, full ROM diminished and coarse bilat tachycardic S1, S2 Cardiovascular: no significant murmur, no rub, gallop Gastrointestinal: soft, non-tender, no distention, positive bowel sounds LUE edema in forearm/elbow region Musculoskeletal: pulses present Neurological: normal sensation, moves all 4 limbs Skin: normal turgor, cap refill <2 seconds Dx/Plan (1) Acute respiratory failure with hypoxia Code(s): J96.01 - ACUTE RESPIRATORY FAILURE WITH HYPOXIA Status: Acute Comment: Continue O2 supplementation, change Duonebs q4h, add Dulera 2puffs BID , add Solumedrol 40mg IV daily, BiPAP NIMV with increasing trials off NIMV (2) Metastatic lung carcinoma Code(s): C78.00 - SECONDARY MALIGNANT NEOPLASM OF UNSPECIFIED LUNG Status: Chronic Qualifiers: Laterality: left Qualified Code(s): C78.02 - Secondary malignant neoplasm of left lung Comment: Continue chemotherapy per Oncology, poor prognosis (3) Tobacco abuse Code(s): Z72.0 - TOBACCO USE Status: Chronic Comment: Tobacco cessation resources, ? Nicotine patch (4) Macrocytic anemia Code(s): D53.9 - NUTRITIONAL ANEMIA, UNSPECIFIED Status: Chronic Comment: Start Folate 1mg po daily - Plan continue antibiotics, medical social consultant, respiratory therapy, DVT proph w/SCDs Continue Zosyn -: Continue bronchodilators -: Solumedrol 40mg IV daily -: Continue Enoxaparin -: Chemotherapy per medical oncology * Nutritional supplementation, Ensure * AM lab: BMP, CBC, Mg++, PO3
[2018-10-19] MEDS: clonazePAM 0.5 MG TAB PO SCH (20:08)
[2018-10-19 23:10] LABS: Actual Bicarbonate (HCO3a) 28.7 mEq/L (22-28); Base Excess (BEa) 4.5 mEq/L (-2.0 to +3.0); CO2 Tension 41.1 mmHg (35.0-45.0); Calcium, Ionized 1.16 mmol/L (1.12-1.30); Carboxyhemoglobin (COHb) 2.2 gm% (0.0-3.0); Potassium - ABG Lab 3.77 mmol/L (3.70-5.30); pH, Arterial 7.46 (7.35-7.45)
[2018-10-19 23:13] LABS: O2 Tension (PaO2) 55.7 mmHg (80.0-100.0); Puncture Site RRA
[2018-10-19 23:15] LABS: ALV-art Gradient 178.125 (0-20)
[2018-10-20] MEDS: Morphine 4 MG/ML VIAL SLOW IVP PRN ×5 (00:29→17:21)
[2018-10-20] MEDS: Piperacillin/Tazobactam 3.375 GM in Sodium Chloride 0.9% 100 ML IVPB SCH ×4 (00:30→17:23)
[2018-10-20] MEDS: Sodium Chloride 0.9% 1,000 ML IV SCH (04:07)
[2018-10-20 05:12] LABS: Anion Gap 10 mmol/L (10-20); BUN (Urea Nitrogen) 18 mg/dL (9.8-20.1); Calc. Creatinine Clearance 124 mL/min (70-130); Calcium 8.4 mg/dL (7.8-10.44); Carbon Dioxide 30 mmol/L (22-29); Chloride 104 mmol/L (98-107); Estimated GFR-MDRD Greater than 90; Glucose 91 mg/dL (70-105); Magnesium 1.9 mg/dL (1.6-2.6); Phosphorus 2.6 mg/dL (2.3-4.7); Potassium 3.6 mmol/L (3.5-5.1); Sodium 140 mmol/L (136-145)
[2018-10-20 05:29] LABS: Band 1 % (5-11); Hemoglobin 9.2 g/dL (12.0-16.0); Hypochromia SLIGHT = 6-15 cells (100X) (0-5/hpf); Lymphocytes 3 % (21-51); MDiff Complete? YES; Mean Corpuscular HGB CONC 31.8 g/dL (32.0-36.0); Mean Corpuscular Hemoglobin 31.7 pg (27.0-31.0); Mean Corpuscular Volume 99.8 fL (78.0-98.0); Mean Platelet Volume 6.5 fL (7.4-10.4); Monocytes 1 % (0-10); Neutrophil 95 % (42-75); Platelet Count 353 thou/uL (130-400); Platelet Morphology Comment Appears Adequate; Red Blood Cell (RBC) Count 2.91 mill/uL (4.20-5.40); White Blood Cell (WBC) Count 26.9 thou/uL (4.8-10.8)
[2018-10-20] MEDS: Lorazepam 2 MG/ML VIAL SLOW IVP PRN ×3 (05:45→18:35)
[2018-10-20] MEDS: clonazePAM 0.5 MG TAB PO SCH (08:46)
[2018-10-20] MEDS: Famotidine 20 MG TAB PO SCH ×2 (08:57→21:24)
[2018-10-20] MEDS: Senokot S 8.6-50 MG TAB PO SCH ×2 (08:57→21:24)
[2018-10-20] MEDS: Polyethylene Glycol 3350 17 GM Packet PO SCH (08:57)
[2018-10-20] MEDS: Enoxaparin Sodium 30 MG/0.3 ML SYRINGE SC SCH (08:58)
[2018-10-20] MEDS ORDERED: Potassium Chloride 20 MEQ TAB PO SCH (09:00)
[2018-10-20] MEDS: Sodium Chloride 0.45% 1,000 ML IV SCH (09:42)
[2018-10-20] MEDS: Folic Acid 0.4 MG in Pre-Filled Syringe 1 EACH SC SCH (12:34)
--- NOTE | 2018-10-20 12:59 | PRG ---
DATE OF SERVICE: 10/20/2018 SERVICE: Pulmonary Medicine. INTERVAL HISTORY: The patient is doing really well from respiratory standpoint. She is breathing comfortably. She is on BiPAP right now. She had a couple of anxiety spells for which the benzodiazepine worked well. She tolerated high-flow nasal cannula quite well yesterday. Her saturations continue to improved ever so slightly. PHYSICAL EXAMINATION: VITAL SIGNS: Afebrile. Pulse 72, respirations 18, and saturation 99% on 40% FiO2 and a PEEP of 4. HEENT: Normocephalic and atraumatic. Sclerae white. Conjunctivae pink. Oral and nasal mucosa is moist without lesions. LUNGS: Decent air entry on the right. There is still improving air entry on the left. There is a slightly prolonged expiratory phase. Extensive rhonchi are noted. HEART: Normal rate and regular. ABDOMEN: Soft, nontender, and nondistended. Bowel sounds are positive. MUSCULOSKELETAL: No cyanosis or clubbing. No pitting in the bilateral lower extremities. NEUROLOGIC: Grossly nonfocal. LABORATORY DATA: Potassium 3.6. Basic metabolic profile is otherwise unremarkable. Her white blood cell count is downtrending nicely. Platelets and hemoglobins are roughly stable. Magnesium and phosphorous fall within normal limits. ASSESSMENT: 1. Acute hypoxic and hypercapnic respiratory failure. 2. Small cell lung cancer with complete atelectasis of the left upper lobe, secondary to endobronchial lesion. 3. Chronic obstructive pulmonary disease with mild exacerbation. DISCUSSION AND PLAN: I will replace potassium. We will increase her dose of Klonopin to 1 mg twice daily. She is going in and out of small tachyarrhythmia. As such, we will initiate a low dose of beta-kavitha. We will try to mobilize the patient through the day. She will need to remain in the ICU until she can tolerate very good long breaks off her BiPAP. I am hopeful that the cancer will quickly regress with the recent chemotherapy. I do not think there are any barriers to her continue getting more treatment while she is here. Job ID: [id number]
[2018-10-20] MEDS ORDERED: Metoprolol Tartrate 25 MG TAB PO SCH (13:45)
--- NOTE | 2018-10-20 19:00 | PDOC.PN ---
- Subjective Encounter Start Date: 10/20/18 Encounter Start Time: 17:25 Subjective: f/u for resp failure on BiPAP and trials of high-flow NC in context -: small cell lung Ca with L hemithorax opacification. Still fatigued -: but tolerates short trials of high flow NC - Objective Resuscitation Status - Order Detail: 10/12/18 23:41 Resuscitation Status Routine Co-Sign Provider: Resuscitation Status: FULL: Full Resuscitation Discussed with: patient and family MAR Reviewed: Yes Vital Signs & Weight: Vital Signs (12 hours) Temp Pulse Resp Pulse Ox 10/20/18 18:28 85 36 H 10/20/18 16:05 93 L 10/20/18 16:00 98.3 F 10/20/18 14:22 93 32 H 93 L 10/20/18 14:20 96 28 H 94 L 10/20/18 11:05 86 31 H 92 L 10/20/18 10:22 90 25 H 92 L 10/20/18 10:16 95 10/20/18 07:42 100 30 H 98 10/20/18 07:35 99 30 H 98 10/20/18 07:20 26 H 97 10/20/18 07:01 97.8 F Weight Admit Weight 119 lb 14.903 oz Weight 119 lb Most Recent Monitor Data Heart Rate from ECG 104 NIBP 129/74 NIBP BP-Mean 92 Respiration from ECG 26 SpO2 94 I&O: 10/19/18 10/20/18 10/21/18 06:59 06:59 06:59 Intake Total 1715 2057 1144 Output Total 805 1485 2315 Balance 910 572 -1171 Result Diagrams: 10/20/18 04:30 10/20/18 04:30 Additional Labs: Microbiology 10/12/18 18:27 Nasal swab Influenza Types A,B Direct EIA - Final 10/12/18 18:21 Venous blood - Left Arm Blood Culture - Preliminary NO GROWTH AT 48 HOURS 10/12/18 18:17 Venous blood - Right Arm Blood Culture - Preliminary NO GROWTH AT 48 HOURS Laboratory Tests 10/12/18 10/13/18 10/14/18 18:17 06:52 04:06 WBC 13.0 H 11.0 H 11.5 H Hgb Plt Count 442 H Neutrophils % 77.3 H Neutrophils % (Manual) Vitamin B12 Folate TSH 3rd Generation 10/14/18 10/17/18 10/17/18 04:06 08:20 08:20 WBC 23.8 H Hgb Plt Count 566 H Neutrophils % Neutrophils % (Manual) 96 H Vitamin B12 512 Folate 3.80 L TSH 3rd Generation 3.1786 10/18/18 04:06 WBC 55.5 H* Hgb 10.3 L Plt Count 550 H Neutrophils % Neutrophils % (Manual) 94 H Vitamin B12 Folate TSH 3rd Generation EKG Reviewed by me: Yes (Tele - sinus tachycardia) Phys Exam - Physical Examination alert, ill-appearing HEENT: PERRLA, sclera anicteric, oral pharynx no lesions Neck: no nodes, no JVD, supple, full ROM diminished bilat L>R tachycardic S1, S2 Cardiovascular: no significant murmur, no rub, gallop Gastrointestinal: soft, non-tender, no distention, positive bowel sounds Musculoskeletal: pulses present, edema present Neurological: normal sensation, moves all 4 limbs Psychiatric: A&O x 3 Skin: normal turgor, cap refill <2 seconds Dx/Plan (1) Acute respiratory failure with hypoxia Code(s): J96.01 - ACUTE RESPIRATORY FAILURE WITH HYPOXIA Status: Acute Comment: Continue O2 supplementation, change Duonebs q4h, add Solumedrol 40mg IV daily, BiPAP NIMV with increasing trials off NIMV (2) Metastatic lung carcinoma Code(s): C78.00 - SECONDARY MALIGNANT NEOPLASM OF UNSPECIFIED LUNG Status: Chronic Qualifiers: Laterality: left Qualified Code(s): C78.02 - Secondary malignant neoplasm of left lung Comment: Continue chemotherapy per Oncology (3) Tobacco abuse Code(s): Z72.0 - TOBACCO USE Status: Chronic Comment: Tobacco cessation resources, ? Nicotine patch (4) Macrocytic anemia Code(s): D53.9 - NUTRITIONAL ANEMIA, UNSPECIFIED Status: Chronic Comment: Start Folate 1mg po daily - Plan continue antibiotics, PT/OT, neonatal social worker, respiratory therapy, DVT proph w/ SCDs Continue pulmonary support -: PT for ROM exercises -: Increase trials of high-flow NC -: Continue Zosyn -: Continue Duonebs and Solumedrol * Chemotx for SCLC
[2018-10-20] MEDS ORDERED: clonazePAM 1 MG TAB PO SCH (21:00)
[2018-10-20] MEDS: Metoprolol Tartrate 25 MG TAB PO SCH (21:24)
[2018-10-21] MEDS: Piperacillin/Tazobactam 3.375 GM in Sodium Chloride 0.9% 100 ML IVPB SCH ×5 (00:08→23:13)
[2018-10-21] MEDS: Lorazepam 2 MG/ML VIAL SLOW IVP PRN ×2 (00:08→07:48)
[2018-10-21] MEDS: Morphine 4 MG/ML VIAL SLOW IVP PRN ×2 (01:47→09:35)
[2018-10-21] MEDS: Sodium Chloride 0.45% 1,000 ML IV SCH ×2 (01:49→12:50)
[2018-10-21] MEDS: Famotidine 20 MG TAB PO SCH ×2 (09:00→20:46)
[2018-10-21] MEDS ORDERED: clonazePAM 0.5 MG TAB PO SCH (09:00)
[2018-10-21] MEDS: Folic Acid 0.4 MG in Pre-Filled Syringe 1 EACH SC SCH (09:01)
[2018-10-21] MEDS: Enoxaparin Sodium 30 MG/0.3 ML SYRINGE SC SCH (09:01)
[2018-10-21] MEDS: Metoprolol Tartrate 25 MG TAB PO SCH ×2 (09:02→21:20)
[2018-10-21] MEDS ORDERED: PROPOFOL 200 MG/20 ML VIAL ONE (09:04)
[2018-10-21] MEDS ORDERED: Ventilator Sedation Protocol 1 EACH FS SCH (09:45)
[2018-10-21] MEDS ORDERED: SYSTANE 3.5 GM TUBE EA EYE PRN (09:45)
[2018-10-21] MEDS ORDERED: Midazolam HCl 2 mg/2 ml Vial SLOW IVP SCH (09:45)
[2018-10-21] MEDS ORDERED: Midazolam HCl 2 mg/2 ml Vial ONE (09:54)
[2018-10-21] MEDS ORDERED: Lorazepam 2 MG/ML VIAL SLOW IVP PRN (10:00)
[2018-10-21] MEDS ORDERED: fentaNYL Citrate/PF 2,000 MCG in Sodium Chloride 0.9% 60 ML IV SCH (10:00)
[2018-10-21] MEDS ORDERED: Propofol 1,000 MG/100 ML VIAL IV PRN (10:00)
[2018-10-21] MEDS ORDERED: Fentanyl BOLUS 250 ML IVPB PRN (10:00)
[2018-10-21] MEDS ORDERED: DISCONTINUE PREVIOUS NARCOTIC PAIN MEDICATIONS AND BENZODIAZEPINES FS SCH (10:00)
[2018-10-21] MEDS ORDERED: Propofol BOLUS 1,000 MG/100 ML VIAL IV PRN (10:00)
--- NOTE | 2018-10-21 10:08 | PRG ---
DATE OF SERVICE: 10/21/2018 SERVICE: Pulmonary Medicine. SUBJECTIVE: The patient is doing poorly from respiratory standpoint. She really could not tolerate the high-flow yesterday even though she was able to do a great job with that the day before. She is coughing a little bit more, but not able to get up any of the sputum anymore. She has no dyspnea. She has a little bit of increase in work of breathing. Otherwise, there has been no interval change to her condition. Denied any fevers, chills, nausea, or vomiting. OBJECTIVE: VITAL SIGNS: Afebrile, pulse 98, blood pressure 126/81, respirations 32, saturation 99% on 40% FiO2 and a PEEP of 4. GENERAL: She is awake and alert. She is tachypneic and has some accessory muscle use. HEART: Normal rate, regular. ABDOMEN: Soft, nontender, and nondistended. Bowel sounds are positive. MUSCULOSKELETAL: No cyanosis or clubbing. There is no pitting in the bilateral lower extremities. NEUROLOGIC: Grossly nonfocal. ASSESSMENT: 1. Acute hypoxic and hypercapnic respiratory failure. 2. Small-cell lung cancer, with previous complete atelectasis of the left upper lobe secondary to endobronchial lesion. 3. Chronic obstructive pulmonary disease with mild exacerbation. DISCUSSION AND PLAN: We will continue our nebulized medications, antibiotics, and steroids. My suspicion is that she simply has some pseudoprogression of this endobronchial mass, which will likely respond very nicely to chemotherapy. At this point, we will go ahead and secure her airway with an endotracheal tube. She will be watched very closely in the ICU over the weekend and hopefully, this will allow enough time for this mass to regress. We will also look with bronchoscopy to see whether or not it may be amenable to stenting. Pulmonary Critical Care will continue to follow closely. CRITICAL CARE TIME: 30 minutes. Job ID: [id number]
[2018-10-21] MEDS ORDERED: Propofol 1,000 MG/100 ML VIAL IV ONE (10:19)
[2018-10-21 11:31] LABS: Actual Bicarbonate (HCO3a) 26.3 mEq/L (22-28); Base Excess (BEa) 2.7 mEq/L (-2.0 to +3.0); CO2 Tension 36.5 mmHg (35.0-45.0); Calcium, Ionized 1.12 mmol/L (1.12-1.30); Hemoglobin (Hb) 8.9 g/dL (12.0-16.0); O2 Tension (PaO2) 64.3 mmHg (80.0-100.0); pH, Arterial 7.48 (7.35-7.45)
[2018-10-21 11:33] LABS: Puncture Site RRA
[2018-10-21 11:34] LABS: ALV-art Gradient 153.885 (0-20)
[2018-10-21] MEDS: Polyethylene Glycol 3350 17 GM Packet PO SCH (12:09)
[2018-10-21] MEDS: Senokot S 8.6-50 MG TAB PO SCH ×2 (12:09→20:46)
--- NOTE | 2018-10-21 12:12 | RAD ---
PORTABLE CHEST ONE VIEW: 10/21/2018 9:48 a.m. HISTORY: Respiratory failure. FINDINGS: There is an endotracheal tube with the tip about 15 mm above the level of the alesha. A nasogastric tube is present, with the tip close to the GE junction, below the level of the diaphragm. There is a mass-like opacity in the left upper lobe. There are patchy areas of consolidation in the right lung . No pneumothoraces are seen. There is a right subclavian Port-A-Cath, with the tip in the projecti on of the SVC. A small left pleural effusion may be present. POS: [facility]
--- NOTE | 2018-10-21 13:27 | OP ---
DATE OF PROCEDURE: 10/21/2018 SERVICE: Pulmonary Medicine. PROCEDURE: Emergent endotracheal intubation. CONSENT: Procedure was performed emergently secondary to clinical deterioration and respiratory failure. STAFF PHYSICIAN: Jaskaran Elizalde MD. MEDICATIONS USED: 1. Versed 2 mg IV push. 2. Etomidate 20 mg IV push. PREPROCEDURE DIAGNOSES: 1. Acute hypoxic respiratory failure. 2. Small cell lung cancer, status post recent chemotherapy. POSTPROCEDURE DIAGNOSES: 1. Acute hypoxic respiratory failure. 2. Small cell lung cancer, status post recent induction of chemotherapy. DESCRIPTION OF PROCEDURE: Vital sign monitoring was accomplished by noninvasive hemodynamic monitoring, pulse oximetry, and telemetry. In the supine position, the patient was preoxygenated with [id number] ventilation to maintain saturations of 100%. Following induction of anesthesia, a #3 GlideScope was inserted into the posterior oropharynx offering clear identification of the laryngeal structures with a grade 1 view. An 8.0-[place] endotracheal tube was visualized passing through the vocal cords. Placement was confirmed by condensation in the endotracheal tube and bi-axillary chest auscultation. The endotracheal tube was secured at 22 cm, measured at the teeth. The patient was placed on mechanical good ventilation with good return of volumes. Postprocedure x-ray revealed good location for the endotracheal tube within the trachea. ESTIMATED BLOOD LOSS: None. COMPLICATIONS: None. Job ID: [id number]
--- NOTE | 2018-10-21 13:34 | OP ---
DATE OF PROCEDURE: 10/21/2018 SERVICE: Pulmonary Medicine. PROCEDURE PERFORMED: Fiberoptic bronchoscopy with; 1. Visual airway inspection. 2. Bronchoalveolar lavage from the left upper lobe. PREPROCEDURE DIAGNOSES: 1. Acute hypoxic respiratory failure. 2. Endobronchial mass. POSTPROCEDURE DIAGNOSES: 1. Acute hypoxic respiratory failure. 2. Endobronchial mass. PROCEDURE SWIMMING COACH OR INSTRUCTOR: Jaskaran Elizalde MD. PREANESTHESIA ASSESSMENT: H and P had been performed. The patient's medications and allergies were reviewed. CONSENT: Informed consent was obtained after discussing the risks, benefits, and rationale for performing the procedure with the patient's immediate family member (). DESCRIPTION OF PROCEDURE: A time-out was performed, identifying the correct patient and procedure with name and date of . A diagnostic fiberoptic bronchoscope was introduced through the existing 8.0 endotracheal tube. A tracheobronchial tree inspection was carried out with clear identification of the right upper lobe, right middle lobe, right lower lobe, left upper lobe, lingula, and left lower lobe. There were mucosal irregularities in the opening of the left upper lobe. There was focal tightness and the scope could not be advanced into the anterolateral or apical posterior segments of the left upper lobe. The alesha was sharp. Otherwise, no other endobronchial disease was identified. She was aggressively lavaged throughout bilateral lung avery and multiple/extensive mucus plugs were liberated. The secretions throughout bilateral lungs were extremely tenuous, copious, and cloudy white to pale yellow. Hemostasis was verified and the bronchoscope was removed. A sample was sent for analysis. FINDINGS: 1. Mucosal irregularities in the left upper lobe with mostly extrinsic compression not allowing the scope to pass into the distal left upper lobe segments. 2. Secretions were extremely thick and copious with a cloudy white to pale yellow appearance. COMPLICATIONS: None. ESTIMATED BLOOD LOSS: None. FLUOROSCOPY TIME: None. DISPOSITION: The patient will remain on mechanical ventilation in the ICU. Job ID: [id number]
[2018-10-21] MEDS ORDERED: Pancrelipase DR 12000 1 CAP FS PRN (15:27)
[2018-10-21] MEDS ORDERED: Sodium Bicarbonate Tab 325 MG TAB PER TUBE PRN (15:27)
--- NOTE | 2018-10-21 16:25 | PDOC.PN ---
- Subjective Encounter Start Date: 10/21/18 Encounter Start Time: 16:20 Subjective: f/u for acute resp failure currently on [facility] ventilation s/p bronchoscopy -: with BAL. Receiving Zosyn, Solumedrol and bronchodilators. - Objective Resuscitation Status - Order Detail: 10/12/18 23:41 Resuscitation Status Routine Co-Sign Provider: Resuscitation Status: FULL: Full Resuscitation Discussed with: patient and family MAR Reviewed: Yes Vital Signs & Weight: Vital Signs (12 hours) Temp Pulse Resp BP Pulse Ox 10/21/18 16:00 20 10/21/18 14:49 90 107/60 10/21/18 14:00 23 H 10/21/18 13:12 95 10/21/18 12:35 100 10/21/18 12:00 98.1 F 24 H 10/21/18 11:25 86 10/21/18 09:45 99 10/21/18 07:29 105 H 34 H 94 L 10/21/18 07:21 34 H 99 10/21/18 07:00 99.5 F Weight Admit Weight 119 lb 14.903 oz Weight 119 lb Most Recent Monitor Data Heart Rate from ECG 102 NIBP 103/67 NIBP BP-Mean 79 Respiration from ECG 18 SpO2 100 I&O: 10/20/18 10/21/18 10/22/18 06:59 06:59 06:59 Intake Total 2056 2027 Output Total 5665 4085 1420 Balance 604 -8178 -7385 Result Diagrams: 10/20/18 04:30 10/20/18 04:30 Additional Labs: Microbiology 10/12/18 18:27 Nasal swab Influenza Types A,B Direct EIA - Final 10/12/18 18:21 Venous blood - Left Arm Blood Culture - Preliminary NO GROWTH AT 48 HOURS 10/12/18 18:17 Venous blood - Right Arm Blood Culture - Preliminary NO GROWTH AT 48 HOURS Laboratory Tests 10/12/18 10/13/18 10/14/18 18:17 06:52 04:06 WBC 13.0 H 11.0 H 11.5 H Hgb Plt Count 442 H Neutrophils % 77.3 H Neutrophils % (Manual) Vitamin B12 Folate TSH 3rd Generation 10/14/18 10/17/18 10/17/18 04:06 08:20 08:20 WBC 23.8 H Hgb Plt Count 566 H Neutrophils % Neutrophils % (Manual) 96 H Vitamin B12 512 Folate 3.80 L TSH 3rd Generation 3.1786 10/18/18 04:06 WBC 55.5 H* Hgb 10.3 L Plt Count 550 H Neutrophils % Neutrophils % (Manual) 94 H Vitamin B12 Folate TSH 3rd Generation Radiology Reviewed by me: Yes (PCXR - ETT, NGT in place, MELISSA mass) EKG Reviewed by me: Yes (Tele - SR in 's) Phys Exam - Physical Examination sedate on mech vent, ETT in place HEENT: PERRLA, sclera anicteric, oral pharynx no lesions Neck: no nodes, no JVD, supple diminished L> R tachycardic S1, S2 Cardiovascular: no significant murmur, no rub, gallop Gastrointestinal: soft, non-tender, no distention, positive bowel sounds LUE with forearm edema Musculoskeletal: pulses present, edema present sedate on mech ventilation Skin: normal turgor, cap refill <2 seconds Dx/Plan (1) Acute respiratory failure with hypoxia Code(s): J96.01 - ACUTE RESPIRATORY FAILURE WITH HYPOXIA Status: Acute Comment: Mech ventilation after intubation today, Duonebs q4h, add Solumedrol 40mg IV daily, Bronchoscopy with BAL today (2) Metastatic lung carcinoma Code(s): C78.00 - SECONDARY MALIGNANT NEOPLASM OF UNSPECIFIED LUNG Status: Chronic Qualifiers: Laterality: left Qualified Code(s): C78.02 - Secondary malignant neoplasm of left lung Comment: Continue chemotherapy per Oncology (3) Tobacco abuse Code(s): Z72.0 - TOBACCO USE Status: Chronic Comment: Tobacco cessation resources, ? Nicotine patch (4) Neutrophilic leukocytosis Code(s): D72.9 - DISORDER OF WHITE BLOOD CELLS, UNSPECIFIED Status: Acute Comment: Continue supportive mgmt, IV Zosyn, Solumedrol, serial monitoring, also component of chemotherapy (5) Macrocytic anemia Code(s): D53.9 - NUTRITIONAL ANEMIA, UNSPECIFIED Status: Chronic Comment: Start Folate 1mg daily - Plan continue antibiotics, transition social worker, respiratory therapy, DVT proph w/SCDs Continue pulmonary support -: Mech ventilation with SIMV -: Continue Zosyn, Solumedrol -: Await BAL results -: AM lab: BMP, CBC, Mg++, PO3 * .
[2018-10-22] MEDS: Sodium Chloride 0.45% 1,000 ML IV SCH ×2 (02:13→14:04)
[2018-10-22] MEDS: Piperacillin/Tazobactam 3.375 GM in Sodium Chloride 0.9% 100 ML IVPB SCH ×4 (05:12→23:16)
[2018-10-22 06:33] LABS: #Eosinphils 0.1 thou/uL (0.0-0.7); #Monocytes 0.2 thou/uL (0.11-0.59); #Neutrophils 1.9 thou/uL (1.40-6.50); %Basophils 0.8 % (0.0-1.0); %Eosinophils 2.9 % (0.0-10.0); %Lymphocytes 30.9 % (21.0-51.0); %Monocytes 5.9 % (0.0-10.0); %Neutrophils 59.4 % (42.0-75.0); Hemoglobin 8.6 g/dL (12.0-16.0); Mean Corpuscular HGB CONC 32.4 g/dL (32.0-36.0); Mean Corpuscular Hemoglobin 31.6 pg (27.0-31.0); Mean Corpuscular Volume 97.7 fL (78.0-98.0); Mean Platelet Volume 7.1 fL (7.4-10.4); Platelet Count 229 thou/uL (130-400); RBC Distribution Width 12.7 % (11.5-14.5); Red Blood Cell (RBC) Count 2.71 mill/uL (4.20-5.40); White Blood Cell (WBC) Count 3.1 thou/uL (4.8-10.8)
[2018-10-22 06:49] LABS: Phosphorus 2.8 mg/dL (2.3-4.7)
[2018-10-22 06:54] LABS: Anion Gap 9 mmol/L (10-20); BUN (Urea Nitrogen) 13 mg/dL (9.8-20.1); Calc. Creatinine Clearance 117 mL/min (70-130); Calcium 7.8 mg/dL (7.8-10.44); Carbon Dioxide 29 mmol/L (22-29); Chloride 102 mmol/L (98-107); Estimated GFR-MDRD Greater than 90; Glucose 143 mg/dL (70-105); Magnesium 1.6 mg/dL (1.6-2.6); Potassium 3.3 mmol/L (3.5-5.1); Sodium 137 mmol/L (136-145)
[2018-10-22] MEDS: Famotidine 20 MG TAB PO SCH ×2 (08:27→20:08)
[2018-10-22] MEDS: Enoxaparin Sodium 30 MG/0.3 ML SYRINGE SC SCH (08:28)
[2018-10-22] MEDS: Polyethylene Glycol 3350 17 GM Packet PO SCH (08:29)
[2018-10-22] MEDS: Senokot S 8.6-50 MG TAB PO SCH ×2 (08:29→20:28)
[2018-10-22] MEDS: Metoprolol Tartrate 25 MG TAB PO SCH ×2 (08:33→20:28)
--- NOTE | 2018-10-22 12:05 | PRG ---
DATE OF SERVICE: 10/22/2018 SERVICE: Pulmonary Medicine. INTERVAL HISTORY: The patient is doing really well from respiratory standpoint. She is breathing comfortably. She is moving all 4 extremities. She demonstrates decent strength. Otherwise, there has been no interval change to her condition. She remains anxious. PHYSICAL EXAMINATION: VITAL SIGNS: Afebrile, pulse 99, blood pressure 98/58, respirations 24, saturation 99% on 31% FiO2 and a PEEP of 5. GENERAL: The patient is awake and alert, in no apparent distress. LUNGS: Decent air entry with no prolonged expiratory phase or wheezing. HEART: Normal rate, regular. ABDOMEN: Soft, nontender, and nondistended. Bowel sounds are positive. MUSCULOSKELETAL: No cyanosis or clubbing. There is no pitting in the bilateral lower extremities. NEUROLOGIC: Grossly nonfocal. LABORATORY DATA: WBC 3.1, hemoglobin 8.6, and platelets 229,000 and downtrending. Potassium 3.3, glucose 143. Magnesium 1.6, phosphorus 2.8. Gram-negative nicolás is growing in the bronchial cultures. Moderate normal respiratory espinoza has otherwise been identified. Identification susceptibility is currently pending. IMAGING: Chest x-ray demonstrates endotracheal tube 1.5 cm above the alesha. Enteric catheter courses below the level of the diaphragm. Left upper lobe mass is re-demonstrated. Small left pleural effusion is present. ASSESSMENT: 1. Acute hypoxic and hypercapnic respiratory failure. 2. Small cell lung cancer with prior complete atelectasis of the left upper lobe , improved aeration. 3. Chronic obstructive pulmonary disease with mild exacerbation. DISCUSSION AND PLAN: We will continue our antibiotic, steroids, and nebulized medications. I will leave the patient on mechanical ventilation for an additional 24 hours. She has continued to have copious secretions. We will replace potassium and magnesium. She will remain in the ICU for the time being. Critical care time: 30 minutes. Job ID: [id number] MTDD
[2018-10-22] MEDS ORDERED: Magnesium 2 GM/50 ML 2 GM in Premix Bag 1 BAG IVPB SCH (12:15)
--- NOTE | 2018-10-22 14:28 | PDOC.PN ---
- Subjective Encounter Start Date: 10/22/18 Encounter Start Time: 14:25 Subjective: f/u for resp failure on current [facility] vent s/p bronchoscopy with BAL. -: Receiving Zosyn and Solumedrol. - Objective Resuscitation Status - Order Detail: 10/12/18 23:41 Resuscitation Status Routine Co-Sign Provider: Resuscitation Status: FULL: Full Resuscitation Discussed with: patient and family MAR Reviewed: Yes Vital Signs & Weight: Vital Signs (12 hours) Temp Pulse Resp BP Pulse Ox 10/22/18 14:00 22 H 10/22/18 12:00 98.1 F 17 10/22/18 10:49 99 98/58 L 10/22/18 10:00 21 H 10/22/18 08:00 19 10/22/18 07:26 100 10/22/18 07:00 98.4 F 10/22/18 06:48 106 H 91/55 L 10/22/18 06:00 22 H 10/22/18 04:00 19 10/22/18 03:09 88 10/22/18 03:00 98.6 F Weight Admit Weight 119 lb 14.903 oz Weight 117 lb 4.575 oz Most Recent Monitor Data Heart Rate from ECG 96 NIBP 99/67 NIBP BP-Mean 77 Respiration from ECG 23 SpO2 100 I&O: 10/21/18 10/22/18 10/23/18 06:59 06:59 06:59 Intake Total 2028 2375.7 90 Output Total 3640 2625 1040 Balance -1612 -249.3 -950 Result Diagrams: 10/22/18 05:56 10/22/18 05:56 Additional Labs: Microbiology 10/12/18 18:27 Nasal swab Influenza Types A,B Direct EIA - Final 10/21/18 10:24 Bronchial Washing - Aspirate Respiratory Culture - Preliminary Gram Negative Eleazar 10/12/18 18:21 Venous blood - Left Arm Blood Culture - Preliminary NO GROWTH AT 48 HOURS 10/12/18 18:17 Venous blood - Right Arm Blood Culture - Preliminary NO GROWTH AT 48 HOURS Laboratory Tests 10/12/18 10/13/18 10/14/18 18:17 06:52 04:06 WBC 13.0 H 11.0 H 11.5 H Hgb Plt Count 442 H Neutrophils % 77.3 H Neutrophils % (Manual) Vitamin B12 Folate TSH 3rd Generation 10/14/18 10/17/18 10/17/18 04:06 08:20 08:20 WBC 23.8 H Hgb Plt Count 566 H Neutrophils % Neutrophils % (Manual) 96 H Vitamin B12 512 Folate 3.80 L TSH 3rd Generation 3.1786 10/18/18 04:06 WBC 55.5 H* Hgb 10.3 L Plt Count 550 H Neutrophils % Neutrophils % (Manual) 94 H Vitamin B12 Folate TSH 3rd Generation Radiology Reviewed by me: Yes (PCXR - increased aeration of LLL, lines/tubes in place) EKG Reviewed by me: Yes (Tele - Sinus in 90's) Phys Exam - Physical Examination awake, nods to questions ETT/OGT in place HEENT: PERRLA, sclera anicteric, oral pharynx no lesions Neck: no nodes, no JVD, supple, full ROM increased air flow in L field Respiratory: no wheezing S1, S2 Cardiovascular: RRR, no significant murmur, no rub, gallop Gastrointestinal: soft, non-tender, no distention, positive bowel sounds Musculoskeletal: no edema, pulses present Neurological: normal sensation, moves all 4 limbs Skin: normal turgor, cap refill <2 seconds Deviation from normal: [place] with sergio urine Dx/Plan (1) Acute respiratory failure with hypoxia Code(s): J96.01 - ACUTE RESPIRATORY FAILURE WITH HYPOXIA Status: Acute Comment: [facility] ventilation after intubation today, Duonebs q4h, transitioning to Prednisone, Bronchoscopy with BAL showing GNR's (2) Metastatic lung carcinoma Code(s): C78.00 - SECONDARY MALIGNANT NEOPLASM OF UNSPECIFIED LUNG Status: Chronic Qualifiers: Laterality: left Qualified Code(s): C78.02 - Secondary malignant neoplasm of left lung Comment: Continue chemotherapy per Oncology (3) Tobacco abuse Code(s): Z72.0 - TOBACCO USE Status: Chronic Comment: Tobacco cessation resources, ? Nicotine patch (4) Neutrophilic leukocytosis Code(s): D72.9 - DISORDER OF WHITE BLOOD CELLS, UNSPECIFIED Status: Acute Comment: Continue supportive mgmt, IV Zosyn, Solumedrol, serial monitoring, also component of chemotherapy (5) Macrocytic anemia Code(s): D53.9 - NUTRITIONAL ANEMIA, UNSPECIFIED Status: Chronic Comment: Start Folate 1mg daily (6) Hypokalemia Code(s): E87.6 - HYPOKALEMIA Status: Acute Comment: KCL supplementation with CCU replacement protocol - Plan continue antibiotics, social media director, respiratory therapy, DVT proph w/SCDs Continue pulmonary supportive mgmt -: Wean as clinically indicated from mech vent -: Continue Zosyn -: KCL replacement -: AM lab: BMP, CBC * Nutritional support with Jevity 1.2
[2018-10-22] MEDS: Morphine 2 MG/ML SYRINGE SLOW IVP PRN (20:57)
[2018-10-23] MEDS: Morphine 2 MG/ML SYRINGE SLOW IVP PRN ×6 (00:10→23:49)
[2018-10-23 05:01] LABS: #Eosinphils 0.1 thou/uL (0.0-0.7); #Lymphocytes 1.4 thou/uL (1.20-3.40); #Monocytes 0.3 thou/uL (0.11-0.59); #Neutrophils 1.5 thou/uL (1.40-6.50); %Basophils 0.3 % (0.0-1.0); %Eosinophils 2.2 % (0.0-10.0); %Monocytes 9.6 % (0.0-10.0); %Neutrophils 44.9 % (42.0-75.0); Hemoglobin 8.1 g/dL (12.0-16.0); Mean Corpuscular HGB CONC 32.5 g/dL (32.0-36.0); Mean Corpuscular Hemoglobin 32.1 pg (27.0-31.0); Mean Platelet Volume 7.2 fL (7.4-10.4); Platelet Count 199 thou/uL (130-400); RBC Distribution Width 12.8 % (11.5-14.5); Red Blood Cell (RBC) Count 2.52 mill/uL (4.20-5.40); White Blood Cell (WBC) Count 3.3 thou/uL (4.8-10.8)
[2018-10-23] MEDS: Piperacillin/Tazobactam 3.375 GM in Sodium Chloride 0.9% 100 ML IVPB SCH ×4 (05:17→23:47)
[2018-10-23 05:23] LABS: Anion Gap 8 mmol/L (10-20); BUN (Urea Nitrogen) 16 mg/dL (9.8-20.1); Calc. Creatinine Clearance 119 mL/min (70-130); Calcium 8.2 mg/dL (7.8-10.44); Carbon Dioxide 26 mmol/L (22-29); Chloride 109 mmol/L (98-107); Estimated GFR-MDRD Greater than 90; Glucose 139 mg/dL (70-105); Potassium 4.1 mmol/L (3.5-5.1); Sodium 139 mmol/L (136-145)
--- NOTE | 2018-10-23 08:11 | PRG ---
DATE OF SERVICE: 10/23/2018 SERVICE: Pulmonary Medicine. INTERVAL HISTORY: The patient is really doing quite well from respiratory standpoint. The Precedex has worked beautifully on her to take the edge off. She is cool, calm, and collected this morning. Denies any current chest pain or fevers or chills. She feels like she is getting enough air. PHYSICAL EXAMINATION: VITAL SIGNS: Afebrile, pulse 74, blood pressure 93/55, respirations 15, saturation 99% on 27% FiO2, and a PEEP of 7 today. HEENT: Normocephalic and atraumatic. Sclerae white. Conjunctivae pink. Oral mucosa is moist without lesions. LUNGS: Decent air entry. There is no prolonged expiratory phase or wheezing present. There are rhonchi present. These are much improved. No crackles. HEART: Normal rate and regular. ABDOMEN: Soft, nontender, and nondistended. Bowel sounds are positive. MUSCULOSKELETAL: No cyanosis or clubbing. There is no pitting in the bilateral lower extremities. NEUROLOGIC: Grossly nonfocal. LABORATORY DATA: WBC 3.3, hemoglobin 8.1 and downtrending gently, platelets 199,000, also decreasing. Creatinine is normal. Basic metabolic profile is otherwise unremarkable. Potassium has returned to the normal range. E. coli is growing in respiratory culture, which is a pansensitive organism. Influenza A and B, and blood cultures x2 remain negative. ASSESSMENT: 1. Acute hypoxic and hypercapnic respiratory failure. 2. Small cell lung cancer with prior complete atelectasis of the left upper lobe, aeration is improving. 3. Chronic obstructive pulmonary disease with mild exacerbation. 4. Healthcare-associated pneumonia, secondary to Escherichia coli, likely postobstructive. DISCUSSION AND PLAN: We will continue her antibiotics, steroids, nebulized medications. We will switch over to simple fluoroquinolone as this organism that we are dealing with is completely pansensitive. I will give her a laboratory holiday in the morning. I am going to do a bronchoscopy today to further clean any of the secretions that she is bringing up so that she is optimized for extubation first thing in the morning. CRITICAL CARE TIME: 30 minutes. Job ID: [id number]
[2018-10-23] MEDS ORDERED: Fentanyl 100 MCG/2 ML VIAL ONE (08:56)
[2018-10-23] MEDS: Polyethylene Glycol 3350 17 GM Packet PO SCH (09:11)
[2018-10-23] MEDS: Metoprolol Tartrate 25 MG TAB PO SCH ×2 (09:11→21:35)
[2018-10-23] MEDS: Senokot S 8.6-50 MG TAB PO SCH ×2 (09:11→21:35)
[2018-10-23] MEDS: predniSONE 20 MG TAB PO SCH (09:16)
[2018-10-23] MEDS: Enoxaparin Sodium 30 MG/0.3 ML SYRINGE SC SCH (09:17)
[2018-10-23] MEDS: Famotidine 20 MG TAB PO SCH ×2 (09:17→21:36)
[2018-10-23] MEDS: Sodium Chloride 0.45% 1,000 ML IV SCH (11:49)
[2018-10-23] MEDS: Midazolam HCl 2 mg/2 ml Vial ONE ×2 (12:30→12:35)
--- NOTE | 2018-10-23 14:39 | PDOC.PN ---
- Subjective Encounter Start Date: 10/23/18 Encounter Start Time: 14:35 Subjective: f/u for resp failure with SCLC receiving chemotx. Pt gestures she is feelin -: ok except for back and shoulder stiffness. Receiving Prednisone and Zosyn. - Objective Resuscitation Status - Order Detail: 10/12/18 23:41 Resuscitation Status Routine Co-Sign Provider: Resuscitation Status: FULL: Full Resuscitation Discussed with: patient and family MAR Reviewed: Yes Vital Signs & Weight: Vital Signs (12 hours) Temp Pulse Resp BP Pulse Ox 10/23/18 12:00 98.7 F 20 10/23/18 10:20 73 105/61 10/23/18 10:00 28 H 10/23/18 08:00 27 H 99 10/23/18 07:19 74 93/55 L 10/23/18 07:00 98.2 F 10/23/18 06:00 19 10/23/18 04:00 98.3 F 19 10/23/18 03:39 66 Weight Admit Weight 119 lb 14.903 oz Weight 129 lb 13.636 oz Most Recent Monitor Data Heart Rate from ECG 74 NIBP 100/58 NIBP BP-Mean 72 Respiration from ECG 19 SpO2 96 I&O: 10/22/18 10/23/18 10/24/18 06:59 06:59 06:59 Intake Total 2375.7 2985.1 60 Output Total 2625 2450 765 Balance -249.3 535.1 -705 Result Diagrams: 10/23/18 04:20 10/23/18 04:20 Additional Labs: Microbiology 10/12/18 18:27 Nasal swab Influenza Types A,B Direct EIA - Final 10/21/18 10:24 Bronchial Washing - Aspirate Respiratory Culture - Preliminary Gram Negative Eleazar 10/21/18 10:24 Bronchial Washing - Aspirate Respiratory Culture - Preliminary Escherichia coli 10/12/18 18:21 Venous blood - Left Arm Blood Culture - Preliminary NO GROWTH AT 48 HOURS 10/12/18 18:17 Venous blood - Right Arm Blood Culture - Preliminary NO GROWTH AT 48 HOURS Laboratory Tests 10/12/18 10/13/18 10/14/18 18:17 06:52 04:06 WBC 13.0 H 11.0 H 11.5 H Hgb Plt Count 442 H Neutrophils % 77.3 H Neutrophils % (Manual) Vitamin B12 Folate TSH 3rd Generation 10/14/18 10/17/18 10/17/18 04:06 08:20 08:20 WBC 23.8 H Hgb Plt Count 566 H Neutrophils % Neutrophils % (Manual) 96 H Vitamin B12 512 Folate 3.80 L TSH 3rd Generation 3.1786 10/18/18 04:06 WBC 55.5 H* Hgb 10.3 L Plt Count 550 H Neutrophils % Neutrophils % (Manual) 94 H Vitamin B12 Folate TSH 3rd Generation EKG Reviewed by me: Yes (Tele - SR) Phys Exam - Physical Examination Constitutional: NAD alert, nods and gestures to questions ETT/OGT in place HEENT: PERRLA, sclera anicteric, oral pharynx no lesions Neck: no nodes, no JVD, supple, full ROM Respiratory: clear to auscultation bilateral S1, S2 Cardiovascular: RRR, no significant murmur, no rub, gallop Gastrointestinal: soft, non-tender, no distention, positive bowel sounds Musculoskeletal: no edema, pulses present Neurological: normal sensation, moves all 4 limbs Skin: normal turgor, cap refill <2 seconds Dx/Plan (1) Acute respiratory failure with hypoxia Code(s): J96.01 - ACUTE RESPIRATORY FAILURE WITH HYPOXIA Status: Acute Comment: Mech ventilation after intubation today, Duonebs q4h, transitioning to Prednisone, Bronchoscopy with BAL with E. coli (2) Metastatic lung carcinoma Code(s): C78.00 - SECONDARY MALIGNANT NEOPLASM OF UNSPECIFIED LUNG Status: Chronic Qualifiers: Laterality: left Qualified Code(s): C78.02 - Secondary malignant neoplasm of left lung Comment: Continue chemotherapy per Oncology (3) Tobacco abuse Code(s): Z72.0 - TOBACCO USE Status: Chronic Comment: Tobacco cessation resources, ? Nicotine patch (4) Neutrophilic leukocytosis Code(s): D72.9 - DISORDER OF WHITE BLOOD CELLS, UNSPECIFIED Status: Acute Comment: Continue supportive mgmt, IV Zosyn, Prednisone, serial monitoring, also component of chemotherapy (5) Macrocytic anemia Code(s): D53.9 - NUTRITIONAL ANEMIA, UNSPECIFIED Status: Chronic Comment: Start Folate 1mg daily (6) Hypokalemia Code(s): E87.6 - HYPOKALEMIA Status: Acute Comment: KCL supplementation with CCU replacement protocol - Plan continue antibiotics, PT/OT, social media content manager, respiratory therapy, DVT proph w/ SCDs Continue mech ventilation and wean as clinically indicated -: Continue Zosyn -: Nutritional support with TF's -: Continue Prednisone -: AM lab: BMP, CBC * .
--- NOTE | 2018-10-23 18:45 | OP ---
DATE OF PROCEDURE: 10/23/2018 SERVICE: Pulmonary Medicine. PROCEDURES PERFORMED: 1. Fiberoptic bronchoscopy. 2. Therapeutic suctioning of multiple endobronchial plugs. PREPROCEDURE DIAGNOSES: 1. Acute hypoxic respiratory failure. 2. Small cell lung cancer. POSTPROCEDURE DIAGNOSES: 1. Acute hypoxic respiratory failure. 2. Small cell lung cancer. TELEPHONE INFORMATION CLERK: Jaskaran Elizalde MD MEDICATIONS USED: 1. Versed 4 mg IV push. 2. Fentanyl 50 mcg IV push. PREANESTHESIA ASSESSMENT: H and P had been performed. The patient's medication and allergies were reviewed. Informed consent was obtained after discussing risks, benefits, and rationale for performing the procedure with the patient's . DESCRIPTION OF PROCEDURE: A time-out was performed identifying the correct procedure and the patient with name and date of . A diagnostic fiberoptic bronchoscope was introduced through the existing 8.0 endotracheal tube. The bilateral lung avery were vigorously suctioned with over 50 mL of saline. Each segment of the right upper lobe, right middle lobe, right lower lobe, left upper lobe, left lower lobe, and lingula were entered. The left upper lobe was limited to identifying the segment secondary to anatomic issue. Multiple bronchial plugs were relieved. Hemostasis was verified and bronchoscope was subsequently removed from the patient. FINDINGS: 1. Copious mucus plugging was present, status post lavage and suctioning. 2. Secretions were heavy and quite tenacious, but improved. SPECIMENS OBTAINED: None. COMPLICATIONS: None. ESTIMATED BLOOD LOSS: None. FLUOROSCOPY TIME: None. DISPOSITION: The patient will remain on mechanical ventilation in the ICU. Job ID: [id number]
[2018-10-24] MEDS: Morphine 2 MG/ML SYRINGE SLOW IVP PRN ×7 (04:19→23:40)
[2018-10-24 04:38] LABS: #Eosinphils 0.1 thou/uL (0.0-0.7); #Lymphocytes 1.6 thou/uL (1.20-3.40); #Monocytes 0.5 thou/uL (0.11-0.59); #Neutrophils 1.6 thou/uL (1.40-6.50); %Basophils 0.5 % (0.0-1.0); %Eosinophils 1.5 % (0.0-10.0); %Lymphocytes 42.1 % (21.0-51.0); %Monocytes 12.5 % (0.0-10.0); %Neutrophils 43.4 % (42.0-75.0); Hemoglobin 8.8 g/dL (12.0-16.0); Mean Corpuscular HGB CONC 32.5 g/dL (32.0-36.0); Mean Corpuscular Hemoglobin 32.1 pg (27.0-31.0); Mean Corpuscular Volume 98.8 fL (78.0-98.0); Mean Platelet Volume 7.3 fL (7.4-10.4); Platelet Count 166 thou/uL (130-400); RBC Distribution Width 12.7 % (11.5-14.5); Red Blood Cell (RBC) Count 2.72 mill/uL (4.20-5.40); White Blood Cell (WBC) Count 3.7 thou/uL (4.8-10.8)
[2018-10-24 04:56] LABS: Anion Gap 12 mmol/L (10-20); BUN (Urea Nitrogen) 12 mg/dL (9.8-20.1); Calc. Creatinine Clearance 121 mL/min (70-130); Calcium 8.4 mg/dL (7.8-10.44); Carbon Dioxide 25 mmol/L (22-29); Chloride 106 mmol/L (98-107); Estimated GFR-MDRD Greater than 90; Glucose 100 mg/dL (70-105); Potassium 3.9 mmol/L (3.5-5.1); Sodium 139 mmol/L (136-145)
[2018-10-24] MEDS: Piperacillin/Tazobactam 3.375 GM in Sodium Chloride 0.9% 100 ML IVPB SCH ×4 (05:12→23:40)
[2018-10-24] MEDS: Polyethylene Glycol 3350 17 GM Packet PO SCH (08:52)
[2018-10-24] MEDS: Senokot S 8.6-50 MG TAB PO SCH ×2 (08:53→21:12)
[2018-10-24] MEDS: Enoxaparin Sodium 30 MG/0.3 ML SYRINGE SC SCH (08:53)
[2018-10-24] MEDS: Famotidine 20 MG TAB PO SCH ×2 (08:53→20:58)
[2018-10-24] MEDS: predniSONE 20 MG TAB PO SCH (08:53)
[2018-10-24] MEDS: Metoprolol Tartrate 25 MG TAB PO SCH ×2 (08:54→22:23)
[2018-10-24] MEDS: Sodium Chloride 0.45% 1,000 ML IV SCH (11:38)
[2018-10-24 14:06] VITALS: BMI 20.5
--- NOTE | 2018-10-24 20:05 | PDOC.PN ---
- Subjective Encounter Start Date: 10/24/18 Encounter Start Time: 15:35 Subjective: [facility] after -: 2nd bronchoscopy with copious secretions and suctioning. Feels -: better overall. - Objective Resuscitation Status - Order Detail: 10/12/18 23:41 Resuscitation Status Routine Co-Sign Provider: Resuscitation Status: FULL: Full Resuscitation Discussed with: patient and family MAR Reviewed: Yes Vital Signs & Weight: Vital Signs (12 hours) Temp Pulse Resp Pulse Ox 10/24/18 19:25 99 10/24/18 19:00 98.2 F 10/24/18 18:31 97 10/24/18 18:29 76 20 97 10/24/18 16:00 98.8 F 10/24/18 15:21 73 15 93 L 10/24/18 12:00 98.8 F 10/24/18 10:48 77 19 99 10/24/18 10:45 79 18 99 10/24/18 09:55 19 Weight Admit Weight 119 lb 14.903 oz Weight 123 lb 10.869 oz Most Recent Monitor Data Heart Rate from ECG 70 NIBP 110/63 NIBP BP-Mean 78 Respiration from ECG 20 SpO2 99 I&O: 10/23/18 10/24/18 10/25/18 06:59 06:59 06:59 Intake Total 2985.1 1817.9 450 Output Total 2450 2681 2681 Balance 535.1 -863.1 -2231 Result Diagrams: 10/24/18 04:20 10/24/18 04:20 Additional Labs: Microbiology 10/12/18 18:27 Nasal swab Influenza Types A,B Direct EIA - Final 10/21/18 10:24 Bronchial Washing - Aspirate Respiratory Culture - Preliminary Gram Negative Eleazar 10/21/18 10:24 Bronchial Washing - Aspirate Respiratory Culture - Preliminary Escherichia coli 10/12/18 18:21 Venous blood - Left Arm Blood Culture - Preliminary NO GROWTH AT 48 HOURS 10/12/18 18:17 Venous blood - Right Arm Blood Culture - Preliminary NO GROWTH AT 48 HOURS Laboratory Tests 10/12/18 10/13/18 10/14/18 18:17 06:52 04:06 WBC 13.0 H 11.0 H 11.5 H Hgb Plt Count 442 H Neutrophils % 77.3 H Neutrophils % (Manual) Vitamin B12 Folate TSH 3rd Generation 10/14/18 10/17/18 10/17/18 04:06 08:20 08:20 WBC 23.8 H Hgb Plt Count 566 H Neutrophils % Neutrophils % (Manual) 96 H Vitamin B12 512 Folate 3.80 L TSH 3rd Generation 3.1786 10/18/18 04:06 WBC 55.5 H* Hgb 10.3 L Plt Count 550 H Neutrophils % Neutrophils % (Manual) 94 H Vitamin B12 Folate TSH 3rd Generation Microbiology 10/21/18 10:24 Bronchial Washing - Aspirate Respiratory Culture - Final Escherichia coli 10/21/18 10:24 Bronchial Washing - Aspirate Respiratory Culture - Preliminary Gram Negative Eleazar 10/21/18 10:24 Bronchial Washing - Aspirate Respiratory Culture - Preliminary Escherichia coli EKG Reviewed by me: Yes (Tele - SR) Phys Exam - Physical Examination Constitutional: NAD alert, responsive HEENT: PERRLA, sclera anicteric, oral pharynx no lesions Neck: no nodes, no JVD, supple, full ROM Respiratory: no wheezing, no rales, no rhonchi, clear to auscultation bilateral S1, S2 Cardiovascular: RRR, no significant murmur, no rub, gallop Gastrointestinal: soft, non-tender, no distention, positive bowel sounds Musculoskeletal: no edema, pulses present Neurological: normal sensation, moves all 4 limbs Psychiatric: A&O x 3 Skin: normal turgor, cap refill <2 seconds Dx/Plan (1) Acute respiratory failure with hypoxia Code(s): J96.01 - ACUTE RESPIRATORY FAILURE WITH HYPOXIA Status: Acute Comment: Extubated today, Duonebs q4h, transitioning to Prednisone, Bronchoscopy with BAL with E. coli pansensitive (2) Metastatic lung carcinoma Code(s): C78.00 - SECONDARY MALIGNANT NEOPLASM OF UNSPECIFIED LUNG Status: Chronic Qualifiers: Laterality: left Qualified Code(s): C78.02 - Secondary malignant neoplasm of left lung Comment: Continue chemotherapy per Oncology (3) Tobacco abuse Code(s): Z72.0 - TOBACCO USE Status: Chronic Comment: Tobacco cessation resources, ? Nicotine patch (4) Neutrophilic leukocytosis Code(s): D72.9 - DISORDER OF WHITE BLOOD CELLS, UNSPECIFIED Status: Acute Comment: Continue supportive mgmt, IV Zosyn, Prednisone, serial monitoring, also component of chemotherapy (5) Macrocytic anemia Code(s): D53.9 - NUTRITIONAL ANEMIA, UNSPECIFIED Status: Chronic Comment: Start Folate 1mg daily (6) Hypokalemia Code(s): E87.6 - HYPOKALEMIA Status: Acute Comment: KCL supplementation with CCU replacement protocol - Plan continue antibiotics, PT/OT, social media editor, respiratory therapy, out of bed/ ambulate, DVT proph w/SCDs Stable currently -: Continue pulmonary supportive mgmt -: Continue Zosyn -: Continue Duonebs, Prednisone -: AM lab: BMP, CBC * .
[2018-10-25] MEDS: Sodium Chloride 0.45% 1,000 ML IV SCH (04:44)
[2018-10-25] MEDS: Morphine 2 MG/ML SYRINGE SLOW IVP PRN (04:44)
[2018-10-25 04:53] LABS: #Lymphocytes 1.5 thou/uL (1.20-3.40); #Monocytes 0.5 thou/uL (0.11-0.59); #Neutrophils 2.3 thou/uL (1.40-6.50); %Basophils 0.4 % (0.0-1.0); %Eosinophils 0.8 % (0.0-10.0); %Lymphocytes 34.5 % (21.0-51.0); %Monocytes 12.2 % (0.0-10.0); Hemoglobin 8.8 g/dL (12.0-16.0); Mean Corpuscular HGB CONC 32.3 g/dL (32.0-36.0); Mean Corpuscular Hemoglobin 31.6 pg (27.0-31.0); Mean Platelet Volume 7.6 fL (7.4-10.4); Platelet Count 183 thou/uL (130-400); RBC Distribution Width 12.6 % (11.5-14.5); Red Blood Cell (RBC) Count 2.78 mill/uL (4.20-5.40); White Blood Cell (WBC) Count 4.4 thou/uL (4.8-10.8)
[2018-10-25] MEDS: Ondansetron PF 4 MG/2 ML Vial SLOW IVP PRN ×2 (05:03→11:02)
[2018-10-25] MEDS: Piperacillin/Tazobactam 3.375 GM in Sodium Chloride 0.9% 100 ML IVPB SCH (05:04)
[2018-10-25 05:14] LABS: Anion Gap 12 mmol/L (10-20); BUN (Urea Nitrogen) 9 mg/dL (9.8-20.1); Calc. Creatinine Clearance 118 mL/min (70-130); Calcium 8.3 mg/dL (7.8-10.44); Carbon Dioxide 23 mmol/L (22-29); Chloride 107 mmol/L (98-107); Estimated GFR-MDRD Greater than 90; Glucose 82 mg/dL (70-105); Potassium 3.4 mmol/L (3.5-5.1); Sodium 139 mmol/L (136-145)
[2018-10-25] MEDS: predniSONE 20 MG TAB PO SCH (07:55)
[2018-10-25] MEDS: Senokot S 8.6-50 MG TAB PO SCH (07:56)
[2018-10-25] MEDS: Amoxicillin/Potassium Clav 875 MG TAB PO SCH ×2 (07:56→20:58)
[2018-10-25] MEDS: Famotidine 20 MG TAB PO SCH ×2 (07:56→20:58)
--- NOTE | 2018-10-25 07:56 | PRG ---
DATE OF SERVICE: 10/25/2018 SERVICE: Pulmonary Medicine. INTERVAL HISTORY: The patient is doing fine from respiratory standpoint. She is breathing beautifully. She has no complaints of chest pain, nausea, vomiting. She is on mechanical ventilation, perfectly comfortable. Otherwise, there has been no interval change to her condition. PHYSICAL EXAMINATION: VITAL SIGNS: Afebrile. Pulse 96, blood pressure 107/59, respirations 21, saturation 98% on 21% FiO2 and PEEP of 5. GENERAL: The patient is awake and alert, in no apparent distress. LUNGS: Decent air entry. Rhonchi still are present, but are much improved. There is a slightly prolonged expiratory phase. No wheezing is appreciated. HEART: Normal rate and regular. ABDOMEN: Soft, nontender, and nondistended. Bowel sounds are positive. MUSCULOSKELETAL: No cyanosis or clubbing. No pitting in the bilateral lower extremities. NEUROLOGIC: Grossly nonfocal. LABORATORY DATA: WBC 3.7, hemoglobin 8.8, platelets 166,000. Basic metabolic profile was completely unremarkable, otherwise. Bronchial washings are growing E. coli. This is a pansensitive organism. Influenza A and B is unremarkable. Blood cultures x2 are negative. ASSESSMENT: 1. Acute hypoxic respiratory failure, resolved. 2. Healthcare-associated pneumonia secondary to pansensitive Escherichia coli. 3. Small cell lung cancer with prior complete atelectasis of the left upper lobe, improving. 4. Chronic obstructive pulmonary disease with mild exacerbation. DISCUSSION AND PLAN: We will continue her antibiotics. We will put her on a spontaneous breathing trial. If she meets criteria, extubation will be considered. Her oxygen requirements have dramatically improved over the last 24 hours. Based on my bronchoscopy yesterday, there is much more room in the left upper lobe. My suspicion is that her cancer at this point is regressing and hopefully, we can avoid additional episodes of atelectasis. We will begin our mobilization efforts through time. Potassium to be replaced. Job ID: [id number]
[2018-10-25] MEDS: Enoxaparin Sodium 30 MG/0.3 ML SYRINGE SC SCH (07:57)
[2018-10-25] MEDS: Polyethylene Glycol 3350 17 GM Packet PO SCH (07:57)
[2018-10-25] MEDS: Metoprolol Tartrate 25 MG TAB PO SCH ×2 (08:01→20:58)
--- NOTE | 2018-10-25 16:14 | PDOC.PN ---
- Subjective Encounter Start Date: 10/25/18 Encounter Start Time: 13:10 Doing generally well. Breathing has improved. Tolerating diet. No other complaints. - Objective Resuscitation Status - Order Detail: 10/12/18 23:41 Resuscitation Status Routine Co-Sign Provider: Resuscitation Status: FULL: Full Resuscitation Discussed with: patient and family Vital Signs & Weight: Vital Signs (12 hours) Temp Pulse Pulse Resp BP BP BP 10/25/18 14:48 79 115/65 131/66 10/25/18 14:41 98.0 F 72 24 H 119/62 10/25/18 12:45 82 21 H 10/25/18 11:00 98.4 F 10/25/18 08:00 10/25/18 07:18 10/25/18 07:17 82 18 10/25/18 07:00 98.7 F Pulse Ox Pulse Ox Pulse Ox 10/25/18 14:48 94 L 92 L 10/25/18 14:41 93 L 10/25/18 12:45 97 10/25/18 11:00 10/25/18 08:00 100 10/25/18 07:18 95 10/25/18 07:17 95 10/25/18 07:00 Weight Admit Weight 119 lb 14.903 oz Weight 126 lb 15.78 oz Most Recent Monitor Data Heart Rate from ECG 93 NIBP 117/70 NIBP BP-Mean 85 Respiration from ECG 27 SpO2 91 I&O: 10/24/18 10/25/18 10/26/18 06:59 06:59 06:59 Intake Total 1817.9 579.9 1079 Output Total 2681 3606 552 Balance -863.1 -3026.1 527 Result Diagrams: 10/25/18 04:35 10/25/18 04:35 Phys Exam - Physical Examination Constitutional: NAD Neck: no nodes, no JVD Respiratory: no wheezing, no rales Diminished BS on left. Cardiovascular: RRR, no significant murmur Gastrointestinal: soft, non-tender, no distention, positive bowel sounds Musculoskeletal: no edema Psychiatric: normal affect, A&O x 3 Skin: no rash Dx/Plan (1) Acute respiratory failure with hypoxia Code(s): J96.01 - ACUTE RESPIRATORY FAILURE WITH HYPOXIA Status: Acute (2) Metastatic lung carcinoma Code(s): C78.00 - SECONDARY MALIGNANT NEOPLASM OF UNSPECIFIED LUNG Status: Chronic Qualifiers: Laterality: left Qualified Code(s): C78.02 - Secondary malignant neoplasm of left lung Comment: Continue chemotherapy per Oncology (3) Pneumonia due to E. coli Code(s): J15.5 - PNEUMONIA DUE TO ESCHERICHIA COLI Status: Acute (4) Small cell carcinoma Code(s): C80.1 - MALIGNANT (PRIMARY) NEOPLASM, UNSPECIFIED Status: Acute (5) COPD (chronic obstructive pulmonary disease) Status: Acute (6) Hypokalemia Code(s): E87.6 - HYPOKALEMIA Status: Resolved (7) Neutrophilic leukocytosis Code(s): D72.9 - DISORDER OF WHITE BLOOD CELLS, UNSPECIFIED Status: Acute Comment: Continue supportive mgmt, IV Zosyn, Prednisone, serial monitoring, also component of chemotherapy (8) Macrocytic anemia Code(s): D53.9 - NUTRITIONAL ANEMIA, UNSPECIFIED Status: Chronic Comment: Start Folate 1mg daily (9) Tobacco abuse Code(s): Z72.0 - TOBACCO USE Status: Chronic Comment: Tobacco cessation resources, ? Nicotine patch - Plan * Doing well post extubation. Breathing improved. * Transfer to floor. * Continue po abx (Augmentin) and po steroids. * Increase mobility as tolerated. * Oncology following.
--- NOTE | 2018-10-25 17:44 | PRG ---
DATE OF SERVICE: 10/25/2018 SUBJECTIVE: The patient is doing absolutely fantastic from respiratory standpoint. She has no complaints of fevers, chills, or shortness of breath. She is breathing comfortably on room air. She remains extraordinarily weak, but her appetite is picking up. PHYSICAL EXAMINATION: VITAL SIGNS: Afebrile, pulse 72, blood pressure 115/65, respirations 24, and saturation 94% on room air. GENERAL: The patient is awake and alert, in no apparent distress. LUNGS: Excellent air entry. No prolonged expiratory phase appreciated. Dependent crackles are noted. Rhonchi are much improved but still present. HEART: Normal rate regular. ABDOMEN: Soft, nontender, and nondistended. Bowel sounds are positive. MUSCULOSKELETAL: No cyanosis or clubbing. There is no pitting in the bilateral lower extremities. NEUROLOGIC: Grossly nonfocal. LABORATORY DATA: WBC 4.4, hemoglobin 8.8, and platelets 183,000. Potassium 3.4. Basic metabolic profile is otherwise unremarkable. Escherichia coli is growing in the bronchial washing, but this is a pansensitive organism. Influenza A and B are unremarkable. Blood cultures x2 are negative. ASSESSMENT: 1. Acute hypoxic respiratory failure, resolved. 2. Healthcare-associated pneumonia secondary to pansensitive Escherichia coli. 3. Small cell lung cancer with prior complete atelectasis of the left upper lobe, resolved. 4. Chronic obstructive pulmonary disease with mild exacerbation. DISCUSSION AND PLAN: I will replace her potassium. We will get Physical Therapy involved. We will try to get her into a chair three times daily and increase as tolerated. Antibiotics, nebulized medications, and steroids will be continued. After 5 days, the steroids can be stopped. I am electing to give her a slightly longer course of antibiotics simply because I believe this to be a postobstructive process. I cannot tell whether or not there is still something stuck behind an airway that is occluded. She is stable for transition to the floor. Until her appetite picks up a touch better, we will continue very low rates of fluid. Job ID: [id number]
[2018-10-26 08:19] VITALS: BP 109/57; TEMP 98
[2018-10-26] MEDS: Amoxicillin/Potassium Clav 875 MG TAB PO SCH (08:21)
[2018-10-26] MEDS: Famotidine 20 MG TAB PO SCH (08:21)
[2018-10-26] MEDS: predniSONE 20 MG TAB PO SCH (08:22)
[2018-10-26] MEDS: Metoprolol Tartrate 25 MG TAB PO SCH (08:22)
[2018-10-26] MEDS: Enoxaparin Sodium 30 MG/0.3 ML SYRINGE SC SCH (08:23)
[2018-10-26 10:36] LABS: Anion Gap 13 mmol/L (10-20); BUN (Urea Nitrogen) 7 mg/dL (9.8-20.1); Calc. Creatinine Clearance 94 mL/min (70-130); Calcium 8.6 mg/dL (7.8-10.44); Carbon Dioxide 24 mmol/L (22-29); Chloride 104 mmol/L (98-107); Estimated GFR-MDRD Greater than 90; Glucose 100 mg/dL (70-105); Potassium 3.5 mmol/L (3.5-5.1); Sodium 137 mmol/L (136-145)
== END 2018-10-26 11:44 | disposition home or self-care (01) | DRG 166 ==
LOC: ERS 17:50 → OBSVTOIN 22:59 → T4-B 22:59 → ONC 10-13 17:53 → CCU 10-16 21:01 → ONC 10-25 14:31
PROVIDERS: ADMIT Internal Medicine; ATTEND Internal Medicine
PROC: 5A09457 Assistance with Respiratory Ventilation, 24-96 Consecutive Hours, Continuous Positive Airway Pressure (ICD-10-PCS; principal; 2018-10-16)
PROC: 5A1945Z Respiratory Ventilation, 24-96 Consecutive Hours (ICD-10-PCS; 2018-10-21)
PROC: 0B9G8ZX Drainage of Left Upper Lung Lobe, Via Natural or Artificial Opening Endoscopic, Diagnostic (ICD-10-PCS; 2018-10-21)
PROC: 0BH17EZ Insertion of Endotracheal Airway into Trachea, Via Natural or Artificial Opening (ICD-10-PCS; 2018-10-21)
PROC: 0WCQ8ZZ Extirpation of Matter from Respiratory Tract, Via Natural or Artificial Opening Endoscopic (ICD-10-PCS; 2018-10-23)
DX: C34.82 Malignant neoplasm of overlapping sites of left bronchus and lung (principal); J96.01 Acute respiratory failure with hypoxia; J96.02 Acute respiratory failure with hypercapnia; J15.5 Pneumonia due to Escherichia coli; C78.7 Secondary malignant neoplasm of liver and intrahepatic bile duct; C77.3 Secondary and unspecified malignant neoplasm of axilla and upper limb lymph nodes; C77.0 Secondary and unspecified malignant neoplasm of lymph nodes of head, face and neck; C77.1 Secondary and unspecified malignant neoplasm of intrathoracic lymph nodes; C79.51 Secondary malignant neoplasm of bone; J98.11 Atelectasis; J44.1 Chronic obstructive pulmonary disease with (acute) exacerbation; E46 Unspecified protein-calorie malnutrition; Z68.1 Body mass index [BMI] 19.9 or less, adult; E87.6 Hypokalemia; D53.9 Nutritional anemia, unspecified; F41.9 Anxiety disorder, unspecified; F17.210 Nicotine dependence, cigarettes, uncomplicated
CPT/HCPCS: 36415; 36416; 71045; 71275; 80048; 80053; 82550; 82607; 82746; 82805; 83605; 83615; 83735; 83880; 84100; 84436; 84443; 84484; 84550; 85007; 85025; 85027; 87040; 87070; 87077; 87186; 87205; 87804; 93005; 94002; 94003; 94640; 94660; 96374; 96375; J1100; J1650; J2060; J2250; J2270; J2405; J2469; J2543; J2704; J2920; J3010; J3475; J7050; J7506; J7620; J9045; J9181; Q5108; Q9966

== ENCOUNTER 2018-11-01 15:21 | Inpatient (IN) | payer OTHER, SELFPAY ==
[2018-11-01 15:51] LABS: #Basophils 0.1 thou/uL (0.0-0.2); #Eosinphils 0.1 thou/uL (0.0-0.7); #Lymphocytes 2.6 thou/uL (1.20-3.40); #Monocytes 1.1 thou/uL (0.11-0.59); #Neutrophils 9.4 thou/uL (1.40-6.50); %Basophils 0.8 % (0.0-1.0); %Eosinophils 1.1 % (0.0-10.0); %Lymphocytes 19.7 % (21.0-51.0); %Neutrophils 70.4 % (42.0-75.0); Hemoglobin 10.9 g/dL (12.0-16.0); Mean Corpuscular HGB CONC 32.2 g/dL (32.0-36.0); Mean Corpuscular Hemoglobin 32.2 pg (27.0-31.0); Mean Platelet Volume 6.6 fL (7.4-10.4); Platelet Count 468 thou/uL (130-400); RBC Distribution Width 15.1 % (11.5-14.5); Red Blood Cell (RBC) Count 3.39 mill/uL (4.20-5.40); White Blood Cell (WBC) Count 13.3 thou/uL (4.8-10.8)
--- NOTE | 2018-11-01 16:10 | RAD ---
PORTABLE CHEST 1 VIEW: Date: 11/01/18 Time: 1454 hours HISTORY: Chest pain. FINDINGS: Comparison made with exam of 10/21/18. Right-sided Port-A-Cath remains in place. The endotracheal and nasogastric tubes have been removed in the interim. The heart size is normal. There is continued elevation of the left hemidiaphragm. No lo bar consolidation, pneumothoraces, luis manuel pulmonary edema, or pleural effusions are seen. IMPRESSION: No acute process. POS: OFF
[2018-11-01 16:13] LABS: Albumin 3.4 g/dL (3.5-5.0)
[2018-11-01 16:14] LABS: Chloride 103 mmol/L (98-107); Potassium 3.9 mmol/L (3.5-5.1); Sodium 138 mmol/L (136-145)
[2018-11-01 16:16] LABS: Protein, Total 6.4 g/dL (6.0-8.3)
[2018-11-01 16:17] LABS: Anion Gap 12 mmol/L (10-20); Bilirubin, Total 0.3 mg/dL (0.2-1.2); Carbon Dioxide 27 mmol/L (22-29)
[2018-11-01 16:18] LABS: Alkaline Phosphatase 182 U/L (40-150)
[2018-11-01 16:19] LABS: Calc. Creatinine Clearance 0 mL/min (70-130); Estimated GFR-MDRD Greater than 90
[2018-11-01 16:20] LABS: BUN (Urea Nitrogen) 19 mg/dL (9.8-20.1)
[2018-11-01 16:21] LABS: ALT (SGPT) 53 U/L (8-55); AST (SGOT) 16 U/L (5-34); Lipase 118 U/L (8-78)
[2018-11-01 17:00] LABS: Glucose 115 mg/dL (70-105)
[2018-11-01] MEDS ORDERED: Aspirin Chewable 81 MG TAB ONE (17:55)
--- NOTE | 2018-11-01 19:21 | CT ---
CT ANGIOGRAM OF CHEST PERFORMED WITH INTRAVENOUS CONTRAST ENHANCEMENT WITH 3D RECONSTRUCTION: 11/01/18 HISTORY: Chest pain. Lung cancer. COMPARISON: 10/12/18 study. FINDINGS: There are marked emphysematous lung changes seen. There has been a reduction in the size of the left sided pleural effusion as compared to the prior study, although moderate effusion is still present. T here has been a significant improvement in the masses. This includes significant reduction in size of the axillary adenopathy and left supraclavicular adenopathy. Also the soft tissue mass which is surr ounding the great vessels is also significantly reduced in size and the mass that displaced the trach ea to the right is also very significantly reduced. The left upper lobe mass is also markedly diminis hed in size. There is still some residual soft tissue changes which could represent residual tumor an d/or atelectatic lung. The narrowing to the left main pulmonary artery is also reduced. It is difficu lt to measure to give an accurate representation of the size reduction although some of the larger le ft axillary nodes which measures in the 3 cm range now one of the largest nodes only measures 13 to 1 4 mm. Similar reduction in the supraclavicular adenopathy in the left upper lobe lung mass is signifi cantly reduced. The apical pleural changes on the right are stable. No infiltrative change is seen in the lung bases. The thoracic aorta within normal limits of caliber. There is good pulmonary artery opacification obtained. I do not see any evidence for pulmonary embolu s. There is some occlusion of some of the left upper lobe pulmonary arteries related to the mass. The left lobe liver mass which measured at least 7.8 cm in size on the prior examination now measures approximately 4.9 cm. The right paravertebral mass seen adjacent to the T10 vertebral body is reduce d in size. IMPRESSION: 1. No CT evidence for pulmonary embolus. 2. Significant improvement in the adenopathy and left upper lobe and mediastinal mass. POS: [facility]
[2018-11-01] MEDS ORDERED: Ondansetron PF 4 MG/2 ML Vial IVP PRN (21:04)
[2018-11-01] MEDS ORDERED: Acetaminophen 325 MG TAB PO PRN (21:04)
[2018-11-01] MEDS ORDERED: Ondansetron ODT 4 MG TAB PO PRN (21:04)
[2018-11-01] MEDS ORDERED: HYDROcodone/Acetaminophen 5/325 mg Tablet PO PRN (21:08)
[2018-11-01] MEDS: Sodium Chloride 0.9% 1,000 ML IV SCH (22:44)
[2018-11-02 02:20] VITALS: BMI 18.1
--- NOTE | 2018-11-02 03:48 | HP ---
PRIMARY CARE DOCTOR: Alexys Tolentino DO CODE STATUS: Full code. TIME OF EVALUATION: 7:55 p.m. CHIEF COMPLAINT: Chest pain. HISTORY OF PRESENT ILLNESS: This is a 58-year-old female patient with a past medical history of endometriosis, lung cancer, patient receiving chemo, came to the hospital after having new onset chest pain. The pain lasted for about 2 hours. The pain started when the patient was sitting at home watching TV. She reported as operative pain. No clear triggers, no alleviating factors. Symptoms were reported as severe. She reported that she had the last chemo 2 weeks ago. REVIEW OF SYSTEMS: CONSTITUTIONAL: No fever, chills, generalized weakness. RESPIRATORY: The patient has no cough, sputum production, or shortness of breath. CARDIOVASCULAR: The patient has chest pain or palpitations. GASTROINTESTINAL: No nausea. No vomiting, diarrhea, or abdominal pain. INSOLE STIFFENER: No dizziness, headache, or feeling lightheaded. GENITOURINARY: No burning on urination. EXTREMITIES: No leg swelling. All other systems were reviewed and negative except for the findings mentioned above. PAST MEDICAL HISTORY: As mentioned in the HPI. FAMILY HISTORY: Reviewed and noncontributory to current presentation. SURGICAL HISTORY: The patient has a hysterectomy. PSYCHIATRIC HISTORY: No previous psych history. SOCIAL HISTORY: The patient denies alcohol use. No drug use. Former tobacco user. Smokes cigarettes. The patient quit smoking past year. ALLERGIES: NO KNOWN DRUG ALLERGIES REPORTED. MEDICATIONS: None known. PHYSICAL EXAMINATION: VITAL SIGNS: Blood pressure 128/71 with heart rate 68, respiratory rate was 18, temperature 98.3, pain was 0/10, oxygen saturation 99 on room air. GENERAL APPEARANCE: The patient is alert, oriented, not in acute distress. HEENT: Eyes, normal conjunctivae. Moist oral mucosa. Anicteric. No JVD. RESPIRATORY: Bilateral air entry. No rales or wheezes. Symmetric expansion. CARDIOVASCULAR: Normal rate, regular rhythm. No murmurs. No gallops. No edema. ABDOMEN: Soft. Normal bowel sounds. MUSCULOSKELETAL: Baseline range of motion and strength. No tenderness. SKIN: Warm, intact. No pallor. No rash. No redness. Peripheral pulses are present. Capillary refill seems to intact. NEUROLOGIC: No evidence of any new focal weakness. Baseline speech. Cranial nerves seems to be intact. PSYCHIATRIC: The patient is in good mood. No anxiety. Optimal judgment. LABORATORY DATA: EKG was reviewed. The patient had normal sinus rhythm with a rate of 65 with NV 152, QRS 72, QT corrected 374. Chest x-ray was reviewed. The patient has no acute process. CTA showed no evidence of pulmonary embolism, significant improvement in the adenopathy, and left upper lobe mediastinal mass. LABORATORY DATA: Labs were reviewed. White count 13.3, hemoglobin 10.9, MCV 100, platelet count 168. D-dimer 1.49. Sodium 138, potassium 3.9, chloride 103, carbon dioxide 27, anion gap 12, BUN 19, creatinine 0.62, GFR greater than 90, glucose 115, calcium 9.0, total bilirubin 0.3, ALT 16, AST 53, alkaline phosphatase 182. Troponin was negative x3. Serum total protein 6.4, albumin 3.4, globulin 3.0, lipase 118. ASSESSMENT AND PLAN: The patient presented to the hospital with following medical problems: 1. Chest pain, rule out acute coronary syndrome. Troponins have been negative. We will do a stress test in the morning. Further treatment depending on the stress test report results. 2. History of lung cancer, last chemo 2 weeks ago, next chemo is scheduled for next week, we will monitor. Seems to be stable at this point. 3. Deep venous thrombosis prophylaxis. Job ID: [id number]
[2018-11-02 04:59] LABS: #Basophils 0.1 thou/uL (0.0-0.2); #Eosinphils 0.3 thou/uL (0.0-0.7); #Lymphocytes 2.8 thou/uL (1.20-3.40); #Monocytes 1.1 thou/uL (0.11-0.59); #Neutrophils 7.2 thou/uL (1.40-6.50); %Basophils 0.8 % (0.0-1.0); %Eosinophils 2.9 % (0.0-10.0); %Monocytes 9.6 % (0.0-10.0); %Neutrophils 62.7 % (42.0-75.0); Hemoglobin 9.7 g/dL (12.0-16.0); Mean Corpuscular HGB CONC 32.5 g/dL (32.0-36.0); Mean Corpuscular Hemoglobin 32.2 pg (27.0-31.0); Mean Corpuscular Volume 99.1 fL (78.0-98.0); Mean Platelet Volume 6.6 fL (7.4-10.4); Platelet Count 425 thou/uL (130-400); RBC Distribution Width 14.9 % (11.5-14.5); Red Blood Cell (RBC) Count 3.02 mill/uL (4.20-5.40); White Blood Cell (WBC) Count 11.5 thou/uL (4.8-10.8)
[2018-11-02 05:19] LABS: Anion Gap 11 mmol/L (10-20); BUN (Urea Nitrogen) 16 mg/dL (9.8-20.1); Calc. Creatinine Clearance 92 mL/min (70-130); Calcium 8.6 mg/dL (7.8-10.44); Carbon Dioxide 25 mmol/L (22-29); Chloride 106 mmol/L (98-107); Estimated GFR-MDRD Greater than 90; Glucose 85 mg/dL (70-105); Potassium 3.8 mmol/L (3.5-5.1); Sodium 138 mmol/L (136-145)
[2018-11-02] MEDS ORDERED: predniSONE 20 MG TAB PO SCH (08:00)
[2018-11-02] MEDS ORDERED: Metoprolol Tartrate 25 MG TAB PO SCH (09:00)
[2018-11-02] MEDS ORDERED: Enoxaparin Sodium 40 MG/0.4 ML SYRINGE SC SCH (09:00)
[2018-11-02] MEDS ORDERED: Prevnar 13-Val Conj/PF 0.5 ML SYRINGE IM ONE (09:00)
[2018-11-02] MEDS ORDERED: ADENOSINE 60 MG/20 ML VIAL ONE (10:48)
--- NOTE | 2018-11-02 12:18 | NM ---
NUCLEAR MEDICINE CARDIAC STRESS WITH EF AND WALL MOTION: HISTORY: Chest pain. COMPARISON: None. TECHNIQUE: The patient was administered 10.7 mCi of Technetium 99m sestamibi for rest imaging and 32 mCi of Tech netium 99m sestamibi for stress imaging. Cardiac gating is performed. FINDINGS: Homogeneous distribution of the radiotracer in the left ventricle. There is no reversibility. No fi xed defect. End-diastolic volume is 58 mL. End-systolic volume is 9 mL. CARDIAC GATING: Normal wall motion and thickening. 84% ejection fraction. IMPRESSION: 1. Homogeneous distribution of radiotracer. No reversibility or fixed defect. 2. 84% ejection fraction. POS: [facility]
--- NOTE | 2018-11-02 14:45 | PDOC.PN ---
- Subjective Encounter Start Date: 11/02/18 Encounter Start Time: 14:43 Ms. Simeon was seen today in follow-up of chest pain. She says that every since arriving to the jospital she has not had any chest pain. - Objective Resuscitation Status - Order Detail: 11/01/18 21:04 Resuscitation Status Routine Resuscitation Status: FULL: Full Resuscitation MAR Reviewed: Yes Vital Signs & Weight: Vital Signs (12 hours) Temp Pulse Resp BP Pulse Ox 11/02/18 11:33 97.9 F 84 16 116/57 L 98 11/02/18 07:20 98 F 72 16 103/57 L 97 11/02/18 04:00 97.8 F 75 14 109/55 L 98 Weight Admit Weight 109 lb 6 oz Weight 109 lb 6 oz I&O: 11/01/18 11/02/18 11/03/18 06:59 06:59 06:59 Intake Total 1100 Output Total 300 Balance 800 Result Diagrams: 11/02/18 04:49 11/02/18 04:49 Phys Exam - Physical Examination HEENT: PERRLA Respiratory: no wheezing, no rales, no rhonchi, clear to auscultation bilateral Cardiovascular: RRR, no significant murmur, no rub Gastrointestinal: soft, non-tender, positive bowel sounds Musculoskeletal: no edema, pulses present Dx/Plan (1) Chest pain Code(s): R07.9 - CHEST PAIN, UNSPECIFIED Status: Acute (2) COPD (chronic obstructive pulmonary disease) Status: Chronic (3) Small cell carcinoma Code(s): C80.1 - MALIGNANT (PRIMARY) NEOPLASM, UNSPECIFIED Status: Chronic - Plan * Chest pain- probable non-cardiac * Stress test was negative, and CTA was negative for PE * Stable for discharge home.
[2018-11-02] MEDS: Sodium Chloride 0.9% 1,000 ML IV SCH (14:54)
[2018-11-02 15:00] VITALS: BP 101/57; TEMP 97.8
--- NOTE | 2018-11-02 15:17 | DIS ---
DATE OF ADMISSION: 11/01/2018 DATE OF DISCHARGE: 11/02/2018 PRIMARY CARE PHYSICIAN: Alexys Tolentino DO. DISCHARGE DISPOSITION: Home. PRIMARY DISCHARGE DIAGNOSES: 1. Chest pain, probable noncardiac. 2. History of small cell lung cancer, which is metastatic. 3. Chronic obstructive pulmonary disease. DISCHARGE MEDICATIONS: Include: 1. Lopressor 12.5 mg twice daily. 2. Continue Augmentin 875 mg twice a day. 3. Zofran 4 mg as directed. PROCEDURES: Procedures done during the admission; the patient had a CT angiogram of the chest, which was negative for pulmonary embolism. There was significant improvement in the adenopathy in the left upper lobe that of the mediastinal mass. The patient also had a nuclear stress test showing some homogeneous distribution of the radiotracer. There was no reversibility or any fixed defect. Ejection fraction is estimated at 84%. CODE STATUS: Full code. ALLERGIES: NO KNOWN DRUG ALLERGIES. HOSPITAL COURSE: Ms. Simeon is a pleasant 58-year-old female, who presented to the emergency room with complaints of chest pain. This occurred while at rest. She says that since she has recently been started on treatment for lung cancer. She was told that if she had any symptoms, she was supposed to come to the emergency room for evaluation. In the ER, she had a CT scan of the chest done, which was negative for pulmonary embolism and actually showed improvement in the lung cancer with regard to the adenopathy and mediastinal mass. She was ruled out for coronary artery disease and had a nuclear stress test, which was negative. She says that ever since she arrived in the ER, the chest pain actually had resolved. Therefore, since her symptoms have resolved and stress test and CT are negative, vital signs are stable. She will be discharged home with close outpatient followup. Job ID: [id number]
== END 2018-11-02 16:10 | disposition home or self-care (01) | DRG 313 ==
LOC: ERS 15:21 → ERHOLD 18:12 → 2NO 22:15
PROVIDERS: ADMIT Emergency Medicine; ATTEND Emergency Medicine
DX: R07.89 Other chest pain (principal); C34.90 Malignant neoplasm of unspecified part of unspecified bronchus or lung; J44.9 Chronic obstructive pulmonary disease, unspecified; Z90.710 Acquired absence of both cervix and uterus; Z87.891 Personal history of nicotine dependence
CPT/HCPCS: 36415; 71045; 71275; 78452; 80048; 80053; 83690; 84484; 85025; 85379; 85652; 93005; 93017; A9500; J0153; J1642; J1650; Q9966

== ENCOUNTER 2018-11-08 00:03 | Day surgery (SDC) | payer SELFPAY ==
[~2018-11-08 00:03] MED LIST changes: +CARBOPLATIN IVPB SCH; -ISOVUE-370 76%-LOCM 1 ML ONE; +SODIUM CHLORIDE 0.9% IVPB SCH
[2018-11-08] MEDS ORDERED: CARBOPLATIN IVPB SCH (01:45)
[2018-11-08] MEDS ORDERED: SODIUM CHLORIDE 0.9% IVPB SCH ×2 (01:45)
[2018-11-08] MEDS ORDERED: Dexamethasone 10 MG/ML VIAL SLOW IVP SCH (01:45)
[2018-11-08] MEDS ORDERED: ETOPOSIDE IVPB SCH (01:45)
[2018-11-08] MEDS ORDERED: PALONOSETRON HCL 0.05 MG/ML 5 ML VIAL IVP SCH (01:45)
[2018-11-08] MEDS ORDERED: ATEZOLIZUMAB 1,200 MG in Sodium Chloride 0.9% 250 ML 250 ML IVPB SCH (02:00)
[2018-11-08] MEDS ORDERED: Sodium Chloride 0.9% 20 ML ONE (09:41)
[2018-11-08 09:51] VITALS: BP 118/56; TEMP 97.7
== END 2018-11-08 13:36 | disposition home or self-care (01) ==
LOC: ONC/OP 00:03
PROVIDERS: ATTEND Internal Medicine Hematology & Oncology
DX: Z51.11 Encounter for antineoplastic chemotherapy (principal); C34.12 Malignant neoplasm of upper lobe, left bronchus or lung; Z90.710 Acquired absence of both cervix and uterus; Z79.2 Long term (current) use of antibiotics; Z79.899 Other long term (current) drug therapy; Z98.890 Other specified postprocedural states
CPT/HCPCS: 96375; 96413; 96417; J1100; J1642; J2469; J7050; J9045; J9181

== ENCOUNTER 2018-11-09 00:24 | Day surgery (SDC) | payer SELFPAY ==
[2018-11-09] MEDS ORDERED: ETOPOSIDE IVPB SCH (06:00)
[2018-11-09] MEDS ORDERED: Dexamethasone 10 MG/ML VIAL SLOW IVP SCH (06:00)
[2018-11-09] MEDS ORDERED: SODIUM CHLORIDE 0.9% IVPB SCH (06:00)
[2018-11-09] MEDS ORDERED: Sodium Chloride 0.9% 20 ML ONE (08:31)
[2018-11-09 08:53] VITALS: BP 111/55; TEMP 97.9
[2018-11-10] MEDS ORDERED: ETOPOSIDE IVPB SCH (06:00)
[2018-11-10] MEDS ORDERED: SODIUM CHLORIDE 0.9% IVPB SCH (06:00)
[2018-11-11] MEDS ORDERED: SODIUM CHLORIDE 0.9% IVPB SCH (06:00)
[2018-11-11] MEDS ORDERED: ETOPOSIDE IVPB SCH (06:00)
== END 2018-11-09 10:39 | disposition home or self-care (01) ==
LOC: ONC/OP 00:24
PROVIDERS: ATTEND Internal Medicine Hematology & Oncology
DX: Z51.11 Encounter for antineoplastic chemotherapy (principal); C34.12 Malignant neoplasm of upper lobe, left bronchus or lung; Z79.899 Other long term (current) drug therapy; Z79.2 Long term (current) use of antibiotics
CPT/HCPCS: 96375; 96413; J1100; J1642; J7050; J9181

== ENCOUNTER 2018-11-10 00:39 | Day surgery (SDC) | payer SELFPAY ==
[2018-11-10] MEDS ORDERED: Dexamethasone 10 MG/ML VIAL SLOW IVP SCH (02:15)
[2018-11-10] MEDS ORDERED: SODIUM CHLORIDE 0.9% IVPB SCH (02:15)
[2018-11-10] MEDS ORDERED: ETOPOSIDE IVPB SCH (02:15)
[2018-11-10] MEDS ORDERED: Sodium Chloride 0.9% 40 ML ONE (08:30)
[2018-11-10 08:41] VITALS: BP 105/62; TEMP 97.7
== END 2018-11-10 10:55 | disposition home or self-care (01) ==
LOC: ONC/OP 00:39
PROVIDERS: ATTEND Internal Medicine Hematology & Oncology
DX: Z51.11 Encounter for antineoplastic chemotherapy (principal); C34.12 Malignant neoplasm of upper lobe, left bronchus or lung
CPT/HCPCS: 96375; 96413; J1100; J1642; J7050; J9181

== ENCOUNTER 2018-11-11 06:23 | Day surgery (SDC) | payer SELFPAY ==
[~2018-11-11 06:23] MED LIST changes: -CARBOPLATIN IVPB SCH; +PEGFILGRASTIM-JMDB 6 MG/0.6 ML SYRINGE SQ SCH; -SODIUM CHLORIDE 0.9% IVPB SCH
[2018-11-11 11:14] VITALS: BP 137/86; TEMP 98.4
== END 2018-11-11 11:14 | disposition home or self-care (01) ==
LOC: ONC/OP 06:23
PROVIDERS: ATTEND Internal Medicine Hematology & Oncology
DX: Z51.11 Encounter for antineoplastic chemotherapy (principal); C34.12 Malignant neoplasm of upper lobe, left bronchus or lung
CPT/HCPCS: 96372; Q5108

== ENCOUNTER 2018-11-29 08:57 | Outpatient (CLI) | payer OTHER ==
[2018-11-29] MEDS ORDERED: Iopamidol 370 76% 100 ML VIAL ONE (11:25)
--- NOTE | 2018-11-29 13:52 | MRI ---
MRI BRAIN WITH AND WITHOUT CONTRAST: Date: 11/29/18 HISTORY: 58-year-old female with small cell lung cancer. Follow-up of abnormality found on previous brain MRI. COMPARISON: 10/03/18. TECHNIQUE: Multiple sequences obtained in axial, sagittal, and coronal planes; pre and post IV injection of gado linium-based contrast agent: 11 mL MultiHance. FINDINGS: The ventricles are normal in size and configuration. There is no major intraaxial signal abnormality , restricted diffusion, abnormal intraaxial enhancement, mass, midline shift or any other mass effect , recent intraaxial hemorrhage, or extraaxial fluid collection. On the previous MRI, there was a tiny, approximately 0.3 cm, round focus of T2 hyperintensity and res tricted diffusion, in the left occipital lobe. The apparent enhancement of this mentioned in the prio r report probably represented pulsation artifact arising from the inferior portion of the superior sa gittal sinus and torcular herophili. On the current MRI, there is pulsation artifact occupying the bi lateral occipital lobes in the region of the previously noted abnormality. The tiny T2 hyperintense s ignal is no longer present on either the T2 WI or FLAIR sequence. IMPRESSION: 1. The brain is now normal. 2. The tiny round focus of abnormal signal and restricted diffusion in the left occipital lobe noted on the previous MRI of 10/03/18, has resolved. It may have been a punctate tiny focus of a then acut e infarction, or a tiny solitary metastatic deposit that has resolved upon chemotherapy. 3 Recommend continued surveillance follow-up brain MRIs with and without contrast, beginning in anot her 3 months. lola[] POS: [facility]
--- NOTE | 2018-11-29 13:56 | CT ---
CT CHEST AND ABDOMEN AND PELVIS WITH IV CONTRAST: HISTORY: Malignant neoplasm, left bronchus and lung. COMPARISON: CT angiogram chest from 11/01/2018. FINDINGS: Bilateral stable extensive chronic lung changes with some scattered areas of bullous emphysema change s and some areas of scarring in both right and left upper lobes. Poorly circumscribed left upper lob e mass now measures 2.0 x 2.2 cm, where this mass previously measured 2.4 x 3.0 cm. Left supraclavic ular mass now measures 1.7 cm, where it previously measured 2.1 cm. Anterior left axillary lymph nod e now measures 1.0 cm, where it previously measured 1.2 cm. There is considerable improvement in the extensive infiltrating mass in the left anterior mediastinum and prevascular region, circumferential ly, involving the great vessels. The matted adenopathy in the AP window previously measured 1.8 x 4. 2 cm and now measures 1.2 x 3.1 cm. Stable left pleural effusion. There is very extensive sclerosis and increased bony density, essentially totally replacing the T11 vertebral body and pedicles, with some extension into the posterior elements bilaterally, snowing definite worsening when compared to t he prior 11/01/2018 study. In the left lobe of the liver, transversely, the left lobe of the liver mass now measures 3 cm, where is previously measured 4.9 cm. There are some scattered, small, up to borderline-sized retroperiton eal lymph nodes, the largest of which measures approximately 0.7 cm in short axis, in the left periao rtic region. Evidence for gallstone in the dependent portion of the gallbladder. The visualized holden creas, spleen, and adrenal glands are unremarkable. No renal calculi, solid or cystic renal mass, or obstruction. There are two areas of abnormal increased bone density, one in the right iliac bone , measuring 1.3 x 2.6 cm, and the other in the left ischium, measuring 1.4 cm in diameter. IMPRESSION: 1. Improving mass and lymphadenopathy in the left supraclavicular region, mediastinum, and left axil la. 2. Stable appearing hyperinflation and bullous emphysema changes with a somewhat triangular-shaped, poorly circumscribed mass in the left upper lobe, showing minimal decrease in size. 3. Stable small left pleural effusion. 4. Decreasing left lobe of liver mass. 5. Worsening of bone density with progressive sclerosis involving the T11 vertebral body, pedicles, and posterior elements, as well as at least two abnormal sclerotic foci within the pelvis, worrisome for blastic bone metastases. A follow-up bone scan might give additional information in this regard. 6. Cholelithiasis without acute cholecystitis. 7. Small to borderline sized retroperitoneal lymph nodes. POS: [facility]
== END 2018-11-29 08:58 | disposition home or self-care (01) ==
LOC: CT 08:57
PROVIDERS: ATTEND Internal Medicine Hematology & Oncology
DX: C34.12 Malignant neoplasm of upper lobe, left bronchus or lung (principal); R59.0 Localized enlarged lymph nodes; J43.9 Emphysema, unspecified; R91.8 Other nonspecific abnormal finding of lung field; J90 Pleural effusion, not elsewhere classified; R16.0 Hepatomegaly, not elsewhere classified; K80.00 Calculus of gallbladder with acute cholecystitis without obstruction; G95.89 Other specified diseases of spinal cord; G93.9 Disorder of brain, unspecified
CPT/HCPCS: 70553; 71260; 74177; Q9967

== ENCOUNTER 2018-11-29 13:01 | Day surgery (SDC) | payer OTHER, SELFPAY ==
[~2018-11-29 13:01] MED LIST changes: +ATEZOLIZUMAB 1,200 MG in Sodium Chloride 0.9% 250 ML 250 ML IVPB SCH; +CARBOPLATIN IVPB SCH; +Dexamethasone 10 MG in Sodium Chloride 0.9% 50 ML IVPB SCH; +ETOPOSIDE IVPB SCH; -PEGFILGRASTIM-JMDB 6 MG/0.6 ML SYRINGE SQ SCH; +Palonosetron HCl 0.25 MG in Sodium Chloride 0.9% 50 ML IVPB SCH; +SODIUM CHLORIDE 0.9% IVPB SCH; +Sodium Chloride 0.9% 20 ML ONE; +Sodium Chloride 0.9% 50 ML ONE
[2018-11-29 13:07] VITALS: BP 120/58; TEMP 98.4
== END 2018-11-29 13:10 | disposition home or self-care (01) ==
LOC: ONC/OP 13:01
PROVIDERS: ATTEND Internal Medicine Hematology & Oncology
DX: Z51.11 Encounter for antineoplastic chemotherapy (principal); C34.12 Malignant neoplasm of upper lobe, left bronchus or lung; Z79.899 Other long term (current) drug therapy; Z79.2 Long term (current) use of antibiotics
CPT/HCPCS: 96523; J1100; J1642; J2469; J7050; J9022; J9045; J9181

== ENCOUNTER 2018-12-06 08:14 | Day surgery (SDC) | payer OTHER ==
[~2018-12-06 08:14] MED LIST changes: -Sodium Chloride 0.9% 20 ML ONE; -Sodium Chloride 0.9% 50 ML ONE
[2018-12-06] MEDS ORDERED: Sodium Chloride 0.9% 20 ML ONE (09:12)
[2018-12-06 10:29] VITALS: BP 127/59; TEMP 98.3
== END 2018-12-06 13:22 | disposition home or self-care (01) ==
LOC: ONC/OP 08:14
PROVIDERS: ATTEND Internal Medicine Hematology & Oncology
DX: Z51.11 Encounter for antineoplastic chemotherapy (principal); C34.12 Malignant neoplasm of upper lobe, left bronchus or lung; Z79.2 Long term (current) use of antibiotics; Z79.899 Other long term (current) drug therapy
CPT/HCPCS: 96375; 96413; 96417; J1100; J1642; J2469; J7050; J9045; J9181

== ENCOUNTER 2018-12-07 08:14 | Day surgery (SDC) | payer OTHER ==
[~2018-12-07 08:14] MED LIST changes: -ATEZOLIZUMAB 1,200 MG in Sodium Chloride 0.9% 250 ML 250 ML IVPB SCH; -CARBOPLATIN IVPB SCH; -Palonosetron HCl 0.25 MG in Sodium Chloride 0.9% 50 ML IVPB SCH
[2018-12-07] MEDS ORDERED: Dexamethasone 10 MG/ML VIAL SLOW IVP SCH (08:15)
[2018-12-07] MEDS ORDERED: Sodium Chloride 0.9% 20 ML ONE (08:17)
[2018-12-07 08:23] VITALS: BP 128/58; TEMP 98.4
== END 2018-12-07 10:49 | disposition home or self-care (01) ==
LOC: ONC/OP 08:14
PROVIDERS: ATTEND Internal Medicine Hematology & Oncology
DX: Z51.11 Encounter for antineoplastic chemotherapy (principal); C34.12 Malignant neoplasm of upper lobe, left bronchus or lung
CPT/HCPCS: 96375; 96413; J1100; J1642; J7050; J9181

== ENCOUNTER 2018-12-08 08:16 | Day surgery (SDC) | payer OTHER ==
[~2018-12-08 08:16] MED LIST changes: +Dexamethasone 10 MG/ML VIAL SLOW IVP SCH
[2018-12-08] MEDS ORDERED: Sodium Chloride 0.9% 20 ML ONE (08:23)
[2018-12-08 08:33] VITALS: BP 133/61; TEMP 97.7
== END 2018-12-08 10:56 | disposition home or self-care (01) ==
LOC: ONC/OP 08:16
PROVIDERS: ATTEND Internal Medicine Hematology & Oncology
DX: Z51.11 Encounter for antineoplastic chemotherapy (principal); C34.12 Malignant neoplasm of upper lobe, left bronchus or lung
CPT/HCPCS: 96375; 96413; J1100; J1642; J7050; J9181

== ENCOUNTER 2018-12-09 08:04 | Day surgery (SDC) | payer OTHER ==
[~2018-12-09 08:04] MED LIST changes: -Dexamethasone 10 MG in Sodium Chloride 0.9% 50 ML IVPB SCH; -Dexamethasone 10 MG/ML VIAL SLOW IVP SCH; -ETOPOSIDE IVPB SCH; +PEGFILGRASTIM-JMDB 6 MG/0.6 ML SYRINGE SQ SCH; -SODIUM CHLORIDE 0.9% IVPB SCH
[2018-12-09 08:29] VITALS: BP 137/63; TEMP 97.6
== END 2018-12-09 10:25 | disposition home or self-care (01) ==
LOC: ONC/OP 08:04
PROVIDERS: ATTEND Internal Medicine Hematology & Oncology
DX: Z51.11 Encounter for antineoplastic chemotherapy (principal); C34.12 Malignant neoplasm of upper lobe, left bronchus or lung; Z79.2 Long term (current) use of antibiotics; Z79.899 Other long term (current) drug therapy
CPT/HCPCS: 96372; Q5108

== ENCOUNTER 2018-12-27 08:26 | Day surgery (SDC) | payer OTHER ==
[~2018-12-27 08:26] MED LIST changes: +ATEZOLIZUMAB 1,200 MG in Sodium Chloride 0.9% 250 ML 250 ML IVPB SCH; +CARBOPLATIN IVPB SCH; +Dexamethasone 10 MG in Sodium Chloride 0.9% 50 ML IVPB SCH; +Dexamethasone 10 MG/ML VIAL SLOW IVP SCH; +ETOPOSIDE IVPB SCH; +PALONOSETRON HCL 0.05 MG/ML 5 ML VIAL IVP SCH; -PEGFILGRASTIM-JMDB 6 MG/0.6 ML SYRINGE SQ SCH; +Palonosetron HCl 0.25 MG in Sodium Chloride 0.9% 50 ML IVPB SCH; +SODIUM CHLORIDE 0.9% IVPB SCH
[2018-12-27] MEDS ORDERED: Sodium Chloride 0.9% 40 ML ONE (08:47)
[2018-12-27 10:38] VITALS: BP 118/56; TEMP 97.8
== END 2018-12-27 13:56 | disposition home or self-care (01) ==
LOC: ONC/OP 08:26
PROVIDERS: ATTEND Internal Medicine Hematology & Oncology
DX: Z51.12 Encounter for antineoplastic immunotherapy (principal); C34.12 Malignant neoplasm of upper lobe, left bronchus or lung
CPT/HCPCS: 96375; 96413; 96417; J1100; J1642; J2469; J7050; J9045; J9181

== ENCOUNTER 2018-12-28 08:20 | Day surgery (SDC) | payer OTHER ==
[~2018-12-28 08:20] MED LIST changes: -ATEZOLIZUMAB 1,200 MG in Sodium Chloride 0.9% 250 ML 250 ML IVPB SCH; -CARBOPLATIN IVPB SCH; -Dexamethasone 10 MG in Sodium Chloride 0.9% 50 ML IVPB SCH; -PALONOSETRON HCL 0.05 MG/ML 5 ML VIAL IVP SCH; -Palonosetron HCl 0.25 MG in Sodium Chloride 0.9% 50 ML IVPB SCH
[2018-12-28] MEDS ORDERED: Sodium Chloride 0.9% 30 ML ONE (08:24)
[2018-12-28 08:30] VITALS: BP 101/55; TEMP 98.1
== END 2018-12-28 10:50 | disposition home or self-care (01) ==
LOC: ONC/OP 08:20
PROVIDERS: ATTEND Internal Medicine Hematology & Oncology
DX: Z51.11 Encounter for antineoplastic chemotherapy (principal); C34.12 Malignant neoplasm of upper lobe, left bronchus or lung
CPT/HCPCS: 96375; 96413; J1100; J1642; J7050; J9181

== ENCOUNTER 2018-12-29 08:24 | Day surgery (SDC) | payer OTHER ==
[~2018-12-29 08:24] MED LIST changes: +Dexamethasone 10 MG in Sodium Chloride 0.9% 50 ML IVPB SCH
[2018-12-29] MEDS ORDERED: Sodium Chloride 0.9% 20 ML ONE (08:26)
[2018-12-29 08:34] VITALS: BP 112/58; TEMP 98.2
== END 2018-12-29 11:15 | disposition home or self-care (01) ==
LOC: ONC/OP 08:24
PROVIDERS: ATTEND Internal Medicine Hematology & Oncology
DX: Z51.11 Encounter for antineoplastic chemotherapy (principal); C34.12 Malignant neoplasm of upper lobe, left bronchus or lung
CPT/HCPCS: 96375; 96413; J1100; J1642; J7050; J9181

== ENCOUNTER 2018-12-30 08:27 | Day surgery (SDC) | payer OTHER ==
[~2018-12-30 08:27] MED LIST changes: -Dexamethasone 10 MG in Sodium Chloride 0.9% 50 ML IVPB SCH; -Dexamethasone 10 MG/ML VIAL SLOW IVP SCH; -ETOPOSIDE IVPB SCH; +PEGFILGRASTIM-JMDB 6 MG/0.6 ML SYRINGE SQ SCH; -SODIUM CHLORIDE 0.9% IVPB SCH
== END 2018-12-30 09:11 | disposition home or self-care (01) ==
LOC: ONC/OP 08:27
PROVIDERS: ATTEND Internal Medicine Hematology & Oncology
DX: Z51.11 Encounter for antineoplastic chemotherapy (principal); C34.12 Malignant neoplasm of upper lobe, left bronchus or lung
CPT/HCPCS: 96372; Q5108

== ENCOUNTER 2019-01-12 09:08 | Outpatient (CLI) | payer OTHER ==
--- NOTE | 2019-01-12 10:56 | CT ---
Exam: Chest CT with contrast Abdomen CT with contrast Pelvic CT with contrast HISTORY: Malignant neoplasm of the left lung/left bronchus. Evaluate for response to treatment. Correlation: None COMPARISON: 11/29/2018 FINDINGS: Chest CT: Mediastinum: Stable stranding of the periaortic fat, extending along the left common carotid artery a nd left subclavian artery. No mediastinal lymphadenopathy or hematoma. Aorta: No aneurysm. No dissection. No periaortic fat stranding. Minimal atherosclerotic changes noted . Heart: Normal size. No sieving of pericardial fluid Trachea and central bronchi: Patent Pleural spaces: No pleural effusion Right lung: Stable emphysematous change and pleural thickening at the lung apex. Linear opacity in th e right upper lobe is once again demonstrated. Focal area of scar/treatment change is suspected. This region measures 1.0 x 0.6 cm (previously measuring 1.4 x 0.9 cm. 3 x 3 mm nodule anterior right upper lobe. Patchy groundglass opacities. No consolidation with air bronchograms. Left lung:Stable emphysematous change and pleural thickening in the apex. Irregular linear hypodensit y in the left upper lobe measures 1.5 x 2.2 cm (previously measuring 2.2 x 2.0 cm. A second adjacent, contiguous focus measures 1.6 x 0.9 cm (previously measuring 1.5 x 2.1 cm. No new masses. P atchy groundglass opacities are demonstrated. Pneumothorax: None Nonenlarged bilateral axillary lymph nodes are noted. Abdomen CT: Gallbladder: Probable gallstone, without evidence of cholecystitis. Portal vein: Patent Liver: Hypodense mass in the left hepatic lobe measuring 1.9 x 2.7 cm (previously measuring 3.1 x 2.0 cm). Spleen: Appropriate enhancement Pancreas: Appropriate enhancement Adrenal glands: Appropriate enhancement Lymphadenopathy: No gastrohepatic, retrocrural or periportal lymphadenopathy Kidneys: Symmetric enhancement. No obstructive uropathy. Mesentery: No mass, lymphadenopathy, free air or free fluid Alimentary canal: No evidence of bowel obstruction. Pelvis CT: Surgically absent uterus. No pelvic mass, lymphadenopathy, free air or free fluid. Unremarkable urina ry bladder. Osseous structures:Stable sclerosis involving the T10 vertebral body. There is stable sclerosis invol ving the posterior left acetabulum and right iliac bone. IMPRESSION: .1. Partial response to therapy. Interval decrease in size of soft tissue masses in both upper lobes. 2. No evidence of lymphadenopathy in the axilla, mediastinum or left supraclavicular region. Abnormal soft tissue attenuation may represent posttreatment change. 3. Stable emphysematous changes. 4. Decreasing left hepatic lobe mass. 5. Redemonstration of multifocal osseous metastases.
[2019-01-12] MEDS ORDERED: Iopamidol 370 76% 100 ML VIAL ONE (11:13)
--- NOTE | 2019-01-12 14:16 | NM ---
WHOLE BODY BONE SCAN: HISTORY: Malignant neoplasm upper lobe left bronchus. RADIOPHARMACEUTICAL: 30 mCi Technetium 99m-MDP injected intravenously. CORRELATION: CT chest, abdomen, and pelvis on the same date. COMPARISON: None. FINDINGS: There is intense uptake in the T10 vertebral body corresponding to the sclerotic lesion on the CT sca n. There is focal increased uptake in the right medial supraacetabular iliac bone corresponding to sc lerosis on the CT scan. This is consistent with metastatic disease. Mild increased uptake in the shoulders, elbows, wrists, knees, ankles, and feet is consistent with de generative change. Tracer excretion through the kidneys is within normal limits. IMPRESSION: Findings are consistent with osseous metastatic disease. POS: [facility]
== END 2019-01-12 09:09 | disposition home or self-care (01) ==
LOC: CT 09:08
PROVIDERS: ATTEND Internal Medicine Hematology & Oncology
DX: C34.12 Malignant neoplasm of upper lobe, left bronchus or lung (principal); C79.51 Secondary malignant neoplasm of bone; R91.8 Other nonspecific abnormal finding of lung field; J43.9 Emphysema, unspecified; R16.0 Hepatomegaly, not elsewhere classified
CPT/HCPCS: 71260; 74177; 78306; A9503; Q9967

== ENCOUNTER 2019-01-17 09:35 | Day surgery (SDC) | payer OTHER ==
[~2019-01-17 09:35] MED LIST changes: +ATEZOLIZUMAB 1,200 MG in Sodium Chloride 0.9% 250 ML 250 ML IVPB SCH; -PEGFILGRASTIM-JMDB 6 MG/0.6 ML SYRINGE SQ SCH
[2019-01-17] MEDS ORDERED: Sodium Chloride 0.9% 20 ML ONE (09:39)
--- NOTE | 2019-01-17 11:43 | RAD ---
RIGHT CHEST WALL PORT CHECK: INDICATION: Concern for leaking port. TECHNIQUE: The port was accessed upon the patient's arrival to the radiology suite. The patient was placed supin e on the fluoroscopic table. 10 cc of an Isovue-370 contrast solution was utilized to evaluate patency of the right chest wall port. Linux Support Engineer images were performed. Real-time fluoroscopic examination with spot images were obtained. Total fluoroscopic time was 0.7 minutes with a total exposure 243.6 mGy*^m2. The port was left accessed but was flushed with normal saline and heparinized saline f ollowing the procedure. FINDINGS: Contrast was seen to flow freely from the port through the level of the catheter and into the SVC wit hout evidence of leakage or fibrin sheath. The tip of the catheter seen at the level of the SVC. IMPRESSION: Intact and functional right chest wall Mediport without evidence of leak or fibrin sheath. Transcribed Date/Time: 01/17/2019 11:48 AM
[2019-01-17 12:06] VITALS: BP 143/70; TEMP 97.8
[2019-01-17] MEDS ORDERED: Iopamidol 300 61% 30 ML VIAL ONE (14:33)
== END 2019-01-17 13:10 | disposition home or self-care (01) ==
LOC: ONC/OP 09:35
PROVIDERS: ATTEND Internal Medicine Hematology & Oncology
DX: Z51.11 Encounter for antineoplastic chemotherapy (principal); C34.12 Malignant neoplasm of upper lobe, left bronchus or lung
CPT/HCPCS: 36598; 96413; 99211; G0463; J1642; Q9967

== ENCOUNTER 2019-02-07 08:47 | Day surgery (SDC) | payer OTHER ==
[2019-02-07] MEDS ORDERED: Sodium Chloride 0.9% 20 ML ONE (09:13)
[2019-02-07 09:45] VITALS: BP 147/75; TEMP 97.7
== END 2019-02-07 10:16 | disposition home or self-care (01) ==
LOC: ONC/OP 08:47
PROVIDERS: ATTEND Internal Medicine Hematology & Oncology
DX: Z51.11 Encounter for antineoplastic chemotherapy (principal); C34.12 Malignant neoplasm of upper lobe, left bronchus or lung; Z88.0 Allergy status to penicillin; Z79.899 Other long term (current) drug therapy
CPT/HCPCS: 96413; J1642

== ENCOUNTER 2019-02-28 10:34 | Day surgery (SDC) | payer OTHER ==
[2019-02-28 10:48] VITALS: BP 148/69
[2019-02-28] MEDS ORDERED: Sodium Chloride 0.9% 20 ML ONE (11:32)
== END 2019-02-28 12:12 | disposition home or self-care (01) ==
LOC: ONC/OP 10:34
PROVIDERS: ATTEND Internal Medicine Hematology & Oncology
DX: Z51.11 Encounter for antineoplastic chemotherapy (principal); C34.12 Malignant neoplasm of upper lobe, left bronchus or lung
CPT/HCPCS: 96413; J1642; J7050; J9022

== ENCOUNTER 2019-03-07 07:57 | Outpatient (CLI) | payer OTHER ==
--- NOTE | 2019-03-07 12:29 | MRI ---
MRI BRAIN WITH AND WITHOUT CONTRAST: INDICATIONS: Malignant neoplasm of upper lobe, left lung. COMPARISON: MRI brain from 11/29/2018 and 10/03/2018. The 10/03/2018 exam revealed a tiny focus of restricted di ffusion and FLAIR signal in the posterior left occipital lobe. This was not present on the exam of 0 11/29/2018. TECHNIQUE: Multiplanar, multisequential imaging of the brain obtained. Post contrast images obtained after [facility] MultiHance IV. FINDINGS: The ventricles remain normal in size and position. There is no evidence of restricted diffusion. On the FLAIR sequence, there is new FLAIR signal, indicating mild gliosis, in the posterior right cer ebellum. No other evidence of gliosis. No white matter abnormality. Review of the post contrast images reveal a small enhancing lesion in the right cerebellum, correspon ding to the mild gliosis seen on the FLAIR sequence. This small enhancing nodule, in the superior ri ght cerebellum, is measured at approximately 8 to 9 mm in the axial plane. There is a tiny focus of dural enhancement, anterior left frontal lobe, measuring approximately 5 mm. This was present on the prior exam of 10/03/2018 and is unchanged. There is no FLAIR or T2 signal associated with this focus, and this may be a small focal calcified meningioma, with some minimal dur al enhancement. The occipital lesion seen on 10/03/2018 is not seen today. No other abnormal enhancement identified. IMPRESSION: 1. There is a new enhancing nodule in the superior right cerebellum, consistent with a metastatic le tevin, measuring 8 to 9 mm. 2. Subtle area of dural enhancement in the anterior left frontal lobe is stable and is favored to re present a dural based meningioma, as described above. 3. No other lesions or enhancement identified. POS: [facility]
== END 2019-03-07 07:58 | disposition home or self-care (01) ==
LOC: MRI 07:57
PROVIDERS: ATTEND Internal Medicine Hematology & Oncology
DX: C34.12 Malignant neoplasm of upper lobe, left bronchus or lung (principal); G93.89 Other specified disorders of brain
CPT/HCPCS: 70553

== ENCOUNTER 2019-03-21 10:19 | Day surgery (SDC) | payer OTHER ==
[2019-03-21] MEDS ORDERED: Sodium Chloride 0.9% 20 ML ONE (10:56)
[2019-03-21 13:13] VITALS: BP 105/68; TEMP 98.1
== END 2019-03-21 13:14 | disposition home or self-care (01) ==
LOC: ONC/OP 10:19
PROVIDERS: ATTEND Internal Medicine Hematology & Oncology
DX: Z51.11 Encounter for antineoplastic chemotherapy (principal); C34.12 Malignant neoplasm of upper lobe, left bronchus or lung
CPT/HCPCS: 96413; J1642

== ENCOUNTER 2019-04-07 09:11 | Outpatient (CLI) | payer OTHER ==
--- NOTE | 2019-04-07 09:56 | CT ---
EXAM: CT Chest Abd Pelvis W Con PROVIDED CLINICAL HISTORY: Lung cancer COMPARISON: 01/12/2019 FINDINGS: Chest: Interval development of bulky left axillary adenopathy, largest lymph node measuring about 2.8 cm in short axis. Abnormal soft tissue density within the superior mediastinum situated between/around the left common carotid and subclavian arteries is redemonstrated, with a more confluent solid compon ent measuring about 1 cm in short axis now present. Supraclavicular nodule effaces the left internal jugular vein measuring about 1.2 cm at the level of the left thyroid lobe anterior to the le ft common carotid artery. No additional thoracic lymph node enlargement is evident. The heart, pericardium and great vessels de monstrate an otherwise stable CT appearance. Bilateral upper lobe scarring/nodularity is redemonstrated. This appears not significantly changed on the right. This appears slightly decreased in size on the left. Emphysematous changes are redemonstrated. No new pulmonary parenchymal opacity is evident. The airway appears patent and of normal caliber. No pleural fluid, pleural thickening or pneumothorax apparent. Abdomen/pelvis: Interval decrease in size of lateral segment left hepatic lobe mass. It measures 1.5 x 2.3 cm in grea test transverse dimensions on the current study (as compared to 2.7 x 1.9 cm on the prior). The solid abdominal organs demonstrate an otherwise stable CT appearance. There is no bowel dilatation, inflammatory fat stranding, free fluid or lymph node enlargement appare nt within the abdomen or pelvis. Vascular calcifications are noted. Osseous structures: No concerning lytic or blastic lesions are evident. IMPRESSION: 1. Interval development of bulky left axillary adenopathy and superior mediastinal and supraclavicula r soft tissue nodules that likely reflect metastatic lymph nodes. 2. Slight interval decrease in left upper lobe nodule. Stable appearing right upper lobe nodule. 3. Interval decrease in size of left hepatic lobe mass.
[2019-04-07] MEDS ORDERED: Iopamidol 370 76% 100 ML VIAL ONE (13:34)
--- NOTE | 2019-04-07 14:12 | NM ---
NM Bone Scan STANDARD HISTORY: Lung cancer with bony metastatic disease. COMPARISON: CT examinations of 01/12/2019 and 04/07/2019 and a bone scan study of 01/12/2019. FINDINGS: Examination is performed using 31.5 mCi 90 9M technetium MDP administered intravenously. Wh ole body imaging was obtained. This shows persistent increased uptake within the T10 vertebral body similar to the previous examination. The increased uptake along the medial aspect of the right acetab ulum is less prominent and difficulty even perceived without the comparison to an old exam. There are no new bony lesions identified. In reviewing the most recent CT examination the sclerotic bony ch anges in these 2 areas have almost completely resolved IMPRESSION: Persistent increased uptake at T10. The uptake in the medial aspect of the right aspect i s still present but very subtle on the current study. No new lesions identified.
== END 2019-04-07 09:12 | disposition home or self-care (01) ==
LOC: CT 09:11
PROVIDERS: ATTEND Internal Medicine Hematology & Oncology
DX: C34.12 Malignant neoplasm of upper lobe, left bronchus or lung (principal); C78.7 Secondary malignant neoplasm of liver and intrahepatic bile duct; C79.51 Secondary malignant neoplasm of bone; R59.0 Localized enlarged lymph nodes
CPT/HCPCS: 71260; 74177; 78306; A9503

== ENCOUNTER 2019-04-11 10:52 | Day surgery (SDC) | payer OTHER ==
[2019-04-11] MEDS ORDERED: Sodium Chloride 0.9% 20 ML ONE (10:57)
[2019-04-11 12:37] VITALS: BP 112/62; TEMP 98.5
== END 2019-04-11 14:54 | disposition home or self-care (01) ==
LOC: ONC/OP 10:52
PROVIDERS: ATTEND Internal Medicine Hematology & Oncology
DX: Z51.12 Encounter for antineoplastic immunotherapy (principal); C34.12 Malignant neoplasm of upper lobe, left bronchus or lung
CPT/HCPCS: 96413; J1642

== ENCOUNTER 2019-05-02 09:09 | Day surgery (SDC) | payer OTHER, SELFPAY ==
[~2019-05-02 09:09] MED LIST changes: -ATEZOLIZUMAB 1,200 MG in Sodium Chloride 0.9% 250 ML 250 ML IVPB SCH; +Dexamethasone 10 MG in Sodium Chloride 0.9% 50 ML IVPB SCH; +PACLITAXEL IVPB SCH; +SODIUM CHLORIDE 0.9% IVPB SCH
[2019-05-02] MEDS ORDERED: Sodium Chloride 0.9% 20 ML ONE (09:15)
[2019-05-02 09:35] VITALS: BP 116/63; TEMP 97.7
== END 2019-05-02 11:25 | disposition home or self-care (01) ==
LOC: ONC/OP 09:09
PROVIDERS: ATTEND Internal Medicine Hematology & Oncology
DX: Z51.11 Encounter for antineoplastic chemotherapy (principal); C34.12 Malignant neoplasm of upper lobe, left bronchus or lung
CPT/HCPCS: 96375; 96413; J1100; J1642; J7050; J9267

== ENCOUNTER 2019-05-09 14:21 | Day surgery (SDC) | payer OTHER ==
[2019-05-09 14:29] VITALS: BP 123/69
== END 2019-05-09 16:32 | disposition home or self-care (01) ==
LOC: ONC/OP 14:21
PROVIDERS: ATTEND Internal Medicine Hematology & Oncology
DX: Z51.11 Encounter for antineoplastic chemotherapy (principal); C34.12 Malignant neoplasm of upper lobe, left bronchus or lung
CPT/HCPCS: 96375; 96413; J1100; J7050; J9267

== ENCOUNTER 2019-05-16 09:39 | Day surgery (SDC) | payer OTHER ==
[2019-05-16] MEDS ORDERED: Sodium Chloride 0.9% 20 ML ONE (09:42)
[2019-05-16 09:45] VITALS: BP 135/68; TEMP 97.7
== END 2019-05-16 11:52 | disposition home or self-care (01) ==
LOC: ONC/OP 09:39
PROVIDERS: ATTEND Internal Medicine Hematology & Oncology
DX: Z51.12 Encounter for antineoplastic immunotherapy (principal); C34.12 Malignant neoplasm of upper lobe, left bronchus or lung
CPT/HCPCS: 96375; 96413; J1100; J1642; J7050; J9267

== ENCOUNTER 2019-05-23 08:22 | Day surgery (SDC) | payer SELFPAY ==
[~2019-05-23 08:22] MED LIST changes: +Dexamethasone 4 MG in Sodium Chloride 0.9% 50 ML IVPB SCH
[2019-05-23] MEDS ORDERED: Sodium Chloride 0.9% 20 ML ONE (08:31)
[2019-05-23 08:57] VITALS: BP 123/82; TEMP 98
== END 2019-05-23 10:18 | disposition home or self-care (01) ==
LOC: ONC/OP 08:22
PROVIDERS: ATTEND Internal Medicine Hematology & Oncology
DX: Z51.11 Encounter for antineoplastic chemotherapy (principal); C34.12 Malignant neoplasm of upper lobe, left bronchus or lung
CPT/HCPCS: 96375; 96413; J1100; J1642; J7050; J9267

== ENCOUNTER 2019-05-30 11:09 | Day surgery (SDC) | payer OTHER, SELFPAY ==
[~2019-05-30 11:09] MED LIST changes: -Dexamethasone 10 MG in Sodium Chloride 0.9% 50 ML IVPB SCH
[2019-05-30] MEDS ORDERED: Sodium Chloride 0.9% 20 ML ONE (11:25)
[2019-05-30 13:23] VITALS: BP 117/57; TEMP 98.3
== END 2019-05-30 13:27 | disposition home or self-care (01) ==
LOC: ONC/OP 11:09
PROVIDERS: ATTEND Internal Medicine Hematology & Oncology
DX: Z51.11 Encounter for antineoplastic chemotherapy (principal); C34.12 Malignant neoplasm of upper lobe, left bronchus or lung
CPT/HCPCS: 96375; 96413; J1100; J1642; J7050; J9267

== ENCOUNTER 2019-06-06 11:32 | Day surgery (SDC) | payer OTHER, SELFPAY ==
[2019-06-06 11:41] VITALS: BP 117/62; TEMP 98
[2019-06-06] MEDS ORDERED: Sodium Chloride 0.9% 20 ML ONE (11:45)
== END 2019-06-06 13:08 | disposition home or self-care (01) ==
LOC: ONC/OP 11:32
PROVIDERS: ATTEND Internal Medicine Hematology & Oncology
DX: Z51.11 Encounter for antineoplastic chemotherapy (principal); C34.12 Malignant neoplasm of upper lobe, left bronchus or lung
CPT/HCPCS: 96375; 96413; J1100; J1642; J7050; J9267

== ENCOUNTER 2019-06-07 12:41 | Outpatient (CLI) | payer SELFPAY ==
--- NOTE | 2019-06-07 14:27 | MRI ---
BRAIN MRI WITH AND WITHOUT CONTRAST 06/07/19 COMPARISON: 03/07/19 HISTORY: Small cell lung cancer. Evaluate for metastatic disease. TECHNIQUE: Multiplanar and multisequence MRI imaging of the brain is obtained with and without contrast. FINDINGS: The diffusion weighted imaging demonstrates no evidence for acute infarction. Gradient echo imaging demonstrates a subcentimeter focus of blooming artifact within the inferior med ial aspect of the right cerebellar hemisphere. This is associated with a rim enhancing lesion measuri ng 1.1 cm in transverse dimension. Prior imaging demonstrated a rim enhancing mass in this region. It has grown slightly when compared to the prior examination at which time it measured 9 mm. No additional or new lesion is identified within the posterior fossa on this exam. There is a small enhancing lesion within the posterior frontal lobe on the right measuring 4 mm at th e bedoya-white junction, suspicious for an additional metastatic lesion. There is a nonspecific focus of dural based enhancement anterior to the left frontal lobe on axial im age 15 measuring 7 mm, similar when compared to the prior exam. When compared to the prior study performed 11/29/18, the dural based enhancing focus anterior to the l eft frontal lobe is stable while the two intra-axial enhancing lesions are new. Arterial flow voids at the axial level of the skull base appear grossly unremarkable on the T2 weight ed imaging. There is no midline shift or mass effect and no ventricular enlargement. IMPRESSION: Rim enhancing lesion within the inferior posterior right cerebellar hemisphere, demonstrating slight interval enlargement and internal new blooming artifact. This is consistent with a metastatic lesion demonstrating mild interval hemorrhage and/or calcification. Additional intra-axial enhancing 4 mm le tevin within posterior right frontal lobe consistent with an additional metastatic lesion. The dural b ased focus of enhancement anterior to the left frontal lobe is stable when compared to prior imaging and suggests a small meningioma. Dr. Gonzalez made aware at 2 p.m., 06/07/19. Code CR
== END 2019-06-07 12:42 | disposition home or self-care (01) ==
LOC: MRI 12:41
PROVIDERS: ATTEND Internal Medicine Hematology & Oncology
DX: C34.12 Malignant neoplasm of upper lobe, left bronchus or lung (principal)
CPT/HCPCS: 70553

== ENCOUNTER 2019-06-26 09:06 | Outpatient (CLI) | payer OTHER ==
--- NOTE | 2019-06-26 12:47 | CT ---
CHEST AND ABDOMEN AND PELVIC CT SCAN WITH IV CONTRAST: HISTORY: Followup lung cancer. Patient undergoing radiation. Known metastasis. Malignant neoplasm of upper lobe left bronchus or lung. COMPARISON: 04/07/2019. FINDINGS: The previous extensive left axillary and prepectoral adenopathy has very markedly improved/totally re solved. The 2 largest residual lymph nodes in the left axilla measure 0.8 x 1.3 cm and 0.9 x 2.1 cm. The previously noted mass between the origins of the left subclavian and left carotid artery has re solved. The left supraclavicular lymph node has enlarged now measuring 2.1 x 2.3 cm where it previou sly measured 1.2 cm and is resulting in some compression of the left internal jugular vein. There is a questionable small filling defect in the distal left jugular vein at the left subclavian vein junc tion, possibly artifactual or a small amount of air or less likely a very small amount of thrombus, b ut only seen on one image. Stable bilateral upper lung poorly defined opacities with bullous emphysema changes and chronic lung changes bilaterally. No new pulmonary masses. No new mediastinal adenopathy or mass. No pleural ef fusion or pericardial effusion. Stable low attenuation focus in the posterior left lobe of the liver . No other liver masses. Pancreas, spleen, adrenal glands, and kidneys were unremarkable. No evide nce for retroperitoneal adenopathy. Small hiatal hernia. Minimal sigmoid colon diverticulosis witho ut acute diverticulitis. IMPRESSION: 1. Very marked improvement with almost total resolution of the extensive previously noted left axill eligio and prepectoral adenopathy with only 2 minimally enlarged residual left axillary nodes as above. 2. Resolution-marked improvement in the mass noted between the origins of the left internal carotid and left subclavian arteries. 3. Enlargement of the left supraclavicular mass. 4. Stable lung findings. 5. Stable low-attenuation focus in the liver. 6. Questionable filling defect/artifact in the left internal jugular vein at the junction of the lef t subclavian vein, possibly a small air bubble, artifact, or less likely a very small thrombus seen o n only one slice. CODE T POS: [facility]
[2019-06-26] MEDS ORDERED: Iopamidol 370 76% 100 ML VIAL ONE (13:43)
--- NOTE | 2019-06-26 14:05 | NM ---
NM Bone Scan STANDARD HISTORY: Small cell lung cancer. Follow-up bone scan. COMPARISON: Bone scan examination of 04/07/2019. FINDINGS: Examination is performed using 31.8 mCi of 90 9M technetium MDP administered intravenously. Whole body imaging was performed. This shows persistent increased uptake within the T10 vertebral body. Some patchy foci within the skull are also again noted and are stable in appearance as compared to the previous study. No concerning lesion was seen on MRI of the brain. There is bilateral renal as well as bladder activity present. IMPRESSION: Stable bone scan. Persistent uptake at T10 noted.
== END 2019-06-26 09:07 | disposition home or self-care (01) ==
LOC: CT 09:06
PROVIDERS: ATTEND Internal Medicine Hematology & Oncology
DX: C34.12 Malignant neoplasm of upper lobe, left bronchus or lung (principal); C71.9 Malignant neoplasm of brain, unspecified; C79.51 Secondary malignant neoplasm of bone; I77.9 Disorder of arteries and arterioles, unspecified; R59.0 Localized enlarged lymph nodes
CPT/HCPCS: 71260; 74177; 78306; A9503; Q9967

== ENCOUNTER 2019-07-19 09:12 | Day surgery (SDC) | payer OTHER ==
[~2019-07-19 09:12] MED LIST changes: +Dexamethasone 4 mg/ml Vial SLOW IVP SCH
[2019-07-19] MEDS ORDERED: Sodium Chloride 0.9% 20 ML ONE (09:16)
[2019-07-19 09:59] VITALS: BP 130/62; TEMP 97.7
== END 2019-07-19 14:08 | disposition home or self-care (01) ==
LOC: ONC/OP 09:12
PROVIDERS: ATTEND Internal Medicine Hematology & Oncology
DX: Z51.11 Encounter for antineoplastic chemotherapy (principal); C34.12 Malignant neoplasm of upper lobe, left bronchus or lung
CPT/HCPCS: 96375; 96413; J1100; J1642; J7050; J9267

== ENCOUNTER 2019-07-26 11:27 | Day surgery (SDC) | payer OTHER ==
[~2019-07-26 11:27] MED LIST changes: -Dexamethasone 4 MG in Sodium Chloride 0.9% 50 ML IVPB SCH; +Dexamethasone 4 MG in Sodium Chloride 0.9% 50 ML SLOW IVP SCH; -Dexamethasone 4 mg/ml Vial SLOW IVP SCH; +Dexamethasone Sod Phosphate 4 MG in Sodium Chloride 0.9% 50 ML IVPB SCH
[2019-07-26] MEDS ORDERED: Sodium Chloride 0.9% 20 ML ONE (11:32)
[2019-07-26 11:36] VITALS: BP 113/57; TEMP 98.1
== END 2019-07-26 14:08 | disposition home or self-care (01) ==
LOC: ONC/OP 11:27
PROVIDERS: ATTEND Internal Medicine Hematology & Oncology
DX: Z51.11 Encounter for antineoplastic chemotherapy (principal)
CPT/HCPCS: 96375; 96413; J1100; J1642; J7050; J9267

== ENCOUNTER 2019-08-02 10:51 | Day surgery (SDC) | payer OTHER ==
[~2019-08-02 10:51] MED LIST changes: -Dexamethasone 4 MG in Sodium Chloride 0.9% 50 ML SLOW IVP SCH; +Dexamethasone 4 mg/ml Vial SLOW IVP SCH
[2019-08-02] MEDS ORDERED: Sodium Chloride 0.9% 20 ML ONE (10:56)
[2019-08-02 11:12] VITALS: TEMP 97.9
[2019-08-02 11:13] VITALS: BP 132/57
== END 2019-08-02 13:35 | disposition home or self-care (01) ==
LOC: ONC/OP 10:51
PROVIDERS: ATTEND Internal Medicine Hematology & Oncology
DX: Z51.11 Encounter for antineoplastic chemotherapy (principal); C34.12 Malignant neoplasm of upper lobe, left bronchus or lung
CPT/HCPCS: 96375; 96413; J1100; J1642; J7050; J9267

== ENCOUNTER 2019-08-09 09:06 | Day surgery (SDC) | payer OTHER ==
[~2019-08-09 09:06] MED LIST changes: -Dexamethasone Sod Phosphate 4 MG in Sodium Chloride 0.9% 50 ML IVPB SCH
[2019-08-09] MEDS ORDERED: Sodium Chloride 0.9% 20 ML ONE (09:19)
[2019-08-09 15:58] VITALS: BP 115/58; TEMP 98.1
== END 2019-08-09 15:58 | disposition home or self-care (01) ==
LOC: ONC/OP 09:06
PROVIDERS: ATTEND Internal Medicine Hematology & Oncology
DX: Z51.11 Encounter for antineoplastic chemotherapy (principal); C34.12 Malignant neoplasm of upper lobe, left bronchus or lung
CPT/HCPCS: 96375; 96413; J1100; J1642; J7050; J9267

== ENCOUNTER 2019-08-16 11:10 | Day surgery (SDC) | payer OTHER ==
[2019-08-16] MEDS ORDERED: Dexamethasone 4 mg/ml Vial SLOW IVP SCH (11:30)
[2019-08-16] MEDS ORDERED: SODIUM CHLORIDE 0.9% IVPB SCH (11:30)
[2019-08-16] MEDS ORDERED: PACLITAXEL IVPB SCH (11:30)
[2019-08-16 12:40] VITALS: BP 112/67; TEMP 98.1
== END 2019-08-16 14:03 | disposition home or self-care (01) ==
LOC: ONC/OP 11:10
PROVIDERS: ATTEND Internal Medicine Hematology & Oncology
DX: Z51.11 Encounter for antineoplastic chemotherapy (principal); C34.12 Malignant neoplasm of upper lobe, left bronchus or lung
CPT/HCPCS: 96375; 96413; J1100; J7050; J9267

== ENCOUNTER 2019-08-23 08:25 | Day surgery (SDC) | payer OTHER ==
[~2019-08-23 08:25] MED LIST changes: +Dexamethasone 4 MG in Sodium Chloride 0.9% 50 ML SLOW IVP SCH; -Dexamethasone 4 mg/ml Vial SLOW IVP SCH
[2019-08-23] MEDS ORDERED: Sodium Chloride 0.9% 20 ML ONE (08:37)
[2019-08-23] MEDS ORDERED: Dexamethasone 4 mg/ml Vial SLOW IVP SCH (12:30)
[2019-08-23 15:25] VITALS: BP 121/66; TEMP 98.3
== END 2019-08-23 15:30 | disposition home or self-care (01) ==
LOC: ONC/OP 08:25
PROVIDERS: ATTEND Internal Medicine Hematology & Oncology
DX: Z51.11 Encounter for antineoplastic chemotherapy (principal); C34.12 Malignant neoplasm of upper lobe, left bronchus or lung
CPT/HCPCS: 96375; 96413; J1642; J7050; J9267

== ENCOUNTER 2019-08-30 09:05 | Day surgery (SDC) | payer OTHER ==
[~2019-08-30 09:05] MED LIST changes: -Dexamethasone 4 MG in Sodium Chloride 0.9% 50 ML SLOW IVP SCH; +Dexamethasone 4 mg/ml Vial SLOW IVP SCH
[2019-08-30] MEDS ORDERED: Sodium Chloride 0.9% 20 ML ONE (09:08)
[2019-08-30 09:31] VITALS: BP 123/63; TEMP 97.8
== END 2019-08-30 11:03 | disposition home or self-care (01) ==
LOC: ONC/OP 09:05
PROVIDERS: ATTEND Internal Medicine Hematology & Oncology
DX: Z51.11 Encounter for antineoplastic chemotherapy (principal); C34.12 Malignant neoplasm of upper lobe, left bronchus or lung
CPT/HCPCS: 96375; 96413; J1100; J1642; J7050; J9267

== ENCOUNTER 2019-09-06 10:09 | Day surgery (SDC) | payer OTHER ==
[2019-09-06] MEDS ORDERED: Sodium Chloride 0.9% 30 ML ONE (10:10)
[2019-09-06 12:18] VITALS: BP 119/56; TEMP 97.9
== END 2019-09-06 12:19 | disposition home or self-care (01) ==
LOC: ONC/OP 10:09
PROVIDERS: ATTEND Internal Medicine Hematology & Oncology
DX: Z51.11 Encounter for antineoplastic chemotherapy (principal); C34.12 Malignant neoplasm of upper lobe, left bronchus or lung
CPT/HCPCS: 96375; 96413; J1100; J1642; J7050; J9267

== ENCOUNTER 2019-09-14 09:47 | Day surgery (SDC) | payer OTHER ==
[2019-09-14] MEDS ORDERED: Sodium Chloride 0.9% 20 ML ONE (09:57)
[2019-09-14 11:33] VITALS: BP 100/58; TEMP 98
== END 2019-09-14 14:47 | disposition home or self-care (01) ==
LOC: ONC/OP 09:47
PROVIDERS: ATTEND Internal Medicine Hematology & Oncology
DX: Z51.11 Encounter for antineoplastic chemotherapy (principal); C34.12 Malignant neoplasm of upper lobe, left bronchus or lung
CPT/HCPCS: 96375; 96413; J1100; J1642; J7050; J9267

== ENCOUNTER 2019-09-18 08:10 | Outpatient (CLI) | payer OTHER ==
--- NOTE | 2019-09-18 09:47 | MRI ---
EXAM: MRI of the brain without and with contrast HISTORY: Small cell lung cancer with brain metastases COMPARISON: 06/07/2019 TECHNIQUE: Multiplanar multisequence MR images were obtained of the brain without and with IV contras t. FINDINGS: The previously seen enhancing lesion in the right cerebellar hemisphere no longer demonstrates enhanc ement. In its place, there is a well-circumscribed 7 mm high T2 signal well-circumscribed area of cystic change. No restricted diffusion. No abnormal enhancement. No hydronephrosis. No extra-axial fluid collection or intracranial hemorrhage. The expected flow voids are present. Corpus callosum, pituitary, and craniocervical junction are within normal limits. The calvarium and overlying soft tissues are unremarkable. The paranasal sinuses are well aerated. There is opacification of the left mastoid air cells. IMPRESSION: Resolution of enhancing mass in the right cerebellar hemisphere.
--- NOTE | 2019-09-18 10:17 | CT ---
EXAM: CT of the chest with contrast CT of the abdomen and pelvis with contrast HISTORY: Small cell lung cancer COMPARISON: 06/26/2019 TECHNIQUE: 1. Multiple contiguous axial images were obtained in a CT the chest with contrast. Coronal and sagitt al reformats were performed. 2. Multiple contiguous axial images were obtained and a CT of the abdomen and pelvis with contrast. C oronal and sagittal reformats were performed. FINDINGS: CT CHEST: HEART: Normal in size without focal cardiac abnormality MEDIASTINUM: No hilar or mediastinal lymphadenopathy. LUNGS: Emphysematous changes. Stable biapical scarring. No focal infiltrates, nodules, or masses. PLEURAL SPACE: No pneumothorax or pleural effusion. CHEST WALL SOFT TISSUES: Right-sided Mediport with its tip in the superior vena cava. No axillary kaycee nopathy. There is a stable hypodense mass measuring 2.4 cm in size in the left supraclavicular region. CT ABDOMEN/PELVIS: ABDOMEN: LIVER: A stable small area of low density near the falciform ligament may represent focal fatty infil tration. BILE DUCTS: Normal caliber. GALLBLADDER: No calcified gallstones. Normal caliber wall. PANCREAS: within normal limits. SPLEEN: within normal limits. ADRENALS: within normal limits. KIDNEYS: within normal limits. PELVIS: REPRODUCTIVE ORGANS: Status post hysterectomy. URETERS: within normal limits. BLADDER: within normal limits. PERITONEUM: No ascites or free air, no fluid collection. BOWEL: Normal caliber. Scattered diverticula in the colon. MESENTERY AND RETROPERITONEUM: No enlarged mesenteric or retroperitoneal lymph nodes. VESSELS: Atherosclerotic calcifications. ABDOMINAL WALL: within normal limits. OSSEOUS STRUCTURES: Degenerative changes in the spine. IMPRESSION: Stable left supraclavicular mass.
== END 2019-09-18 08:11 | disposition home or self-care (01) ==
LOC: CT 08:10
PROVIDERS: ATTEND Internal Medicine Hematology & Oncology
DX: C34.12 Malignant neoplasm of upper lobe, left bronchus or lung (principal); R93.7 Abnormal findings on diagnostic imaging of other parts of musculoskeletal system; M89.8X8 Other specified disorders of bone, other site; G93.89 Other specified disorders of brain
CPT/HCPCS: 70553; 71260; 74177

== ENCOUNTER 2019-09-21 10:37 | Day surgery (SDC) | payer OTHER ==
[2019-09-21] MEDS ORDERED: Sodium Chloride 0.9% 20 ML ONE (10:41)
[2019-09-21 11:19] VITALS: BP 115/59; TEMP 98
== END 2019-09-21 12:59 | disposition home or self-care (01) ==
LOC: ONC/OP 10:37
PROVIDERS: ATTEND Internal Medicine Hematology & Oncology
DX: Z51.11 Encounter for antineoplastic chemotherapy (principal); C34.12 Malignant neoplasm of upper lobe, left bronchus or lung
CPT/HCPCS: 96375; 96413; J1100; J1642; J7050; J9267

== ENCOUNTER → 2019-09-28 | Day surgery (SDC) | payer OTHER ==
[~2019-09-28] MED LIST changes: +Dexamethasone Sod Phosphate 4 MG in Sodium Chloride 0.9% 50 ML IVPB SCH; +Sodium Chloride 0.9% 20 ML ONE
[2019-09-28 12:35] VITALS: BP 111/62; TEMP 98.1
== END ==
LOC: ONC/OP 09:30
PROVIDERS: ATTEND Internal Medicine Hematology & Oncology
DX: Z51.11 Encounter for antineoplastic chemotherapy (principal); C34.12 Malignant neoplasm of upper lobe, left bronchus or lung
CPT/HCPCS: 96375; 96413; J1100; J1642; J7050; J9267

== ENCOUNTER 2019-10-05 09:18 | Day surgery (SDC) | payer OTHER ==
[~2019-10-05 09:18] MED LIST changes: -Dexamethasone 4 mg/ml Vial SLOW IVP SCH; -Dexamethasone Sod Phosphate 4 MG in Sodium Chloride 0.9% 50 ML IVPB SCH; -Sodium Chloride 0.9% 20 ML ONE
[2019-10-05] MEDS ORDERED: Sodium Chloride 0.9% 20 ML ONE (09:26)
[2019-10-05] MEDS: Dexamethasone 4 mg/ml Vial SLOW IVP SCH ×2 (09:43→09:59)
[2019-10-05 11:10] VITALS: BP 104/63; TEMP 98.3
== END 2019-10-05 12:11 | disposition home or self-care (01) ==
LOC: ONC/OP 09:18
PROVIDERS: ATTEND Internal Medicine Hematology & Oncology
DX: Z51.11 Encounter for antineoplastic chemotherapy (principal); C34.12 Malignant neoplasm of upper lobe, left bronchus or lung
CPT/HCPCS: 96375; 96413; J1100; J1642; J7050; J9267

== ENCOUNTER 2019-10-12 07:30 | Emergency (ER) | payer OTHER, SELFPAY ==
[2019-10-12] MEDS ORDERED: Ketorolac Tromethamine 30 MG/ML VIAL ONE (08:09)
[2019-10-12] MEDS ORDERED: Fentanyl 100 MCG/2 ML VIAL ONE (08:09)
[2019-10-12] MEDS ORDERED: Lorazepam 2 MG/ML VIAL ONE (08:09)
--- NOTE | 2019-10-12 08:29 | RAD ---
LEFT HUMERUS 2 VIEWS: Date: 10/12/2019 HISTORY: Trauma with injury. FINDINGS: There is a comminuted fracture involving the left humeral head and neck with mild displacement of the major fragments. The mid and distal humerus appears intact. IMPRESSION: Comminuted fracture involving the humeral head and neck. POS: C
--- NOTE | 2019-10-12 08:33 | RAD ---
LEFT SHOULDER 2 VIEWS: Date: 10/12/2019 HISTORY: Trauma. FINDINGS: There is a comminuted, mildly displaced fracture involving the left humeral head and neck. No evidenc e of dislocation at the glenohumeral joint. The AC joint is normally aligned. IMPRESSION: Mildly comminuted fracture involving the left humeral head and neck. POS: C
--- NOTE | 2019-10-12 08:34 | RAD ---
CHEST 1 VIEW: Date: 10/12/2019 HISTORY: Injury from trauma. COMPARISON: 11/01/2018. FINDINGS: Heart size within normal limits. Bilateral upper lobe pleural thickening and some pleural and parench ymal scarring. Right central line and injection port. Comminuted fracture of the left humeral neck wi th some foreshortening without overt dislocation. IMPRESSION: Comminuted proximal left humeral fracture. Chronic changes in both apices and upper lung zones. Right central line and injection port. No pneumothorax, pleural effusion, or other significant acute post- traumatic process. POS: OFF
== END 2019-10-12 09:15 | disposition home or self-care (01) ==
LOC: ERS 07:30
DX: S42.212A Unspecified displaced fracture of surgical neck of left humerus, initial encounter for closed fracture (principal); Z87.891 Personal history of nicotine dependence; Z79.899 Other long term (current) drug therapy; W01.0XXA Fall on same level from slipping, tripping and stumbling without subsequent striking against object, initial encounter
CPT/HCPCS: 71045; 96374; 96375; J1885; J2060; J3010

== ENCOUNTER 2019-10-19 11:13 | Day surgery (SDC) | payer SELFPAY ==
[~2019-10-19 11:13] MED LIST changes: +Dexamethasone 4 mg/ml Vial SLOW IVP SCH; +Dexamethasone Sod Phosphate 4 MG in Sodium Chloride 0.9% 50 ML IVPB SCH
[2019-10-19] MEDS ORDERED: Sodium Chloride 0.9% 20 ML ONE (11:14)
[2019-10-19 12:46] VITALS: BP 120/56; TEMP 98.3
== END 2019-10-19 14:41 | disposition home or self-care (01) ==
LOC: ONC/OP 11:13
PROVIDERS: ATTEND Internal Medicine Hematology & Oncology
DX: Z51.11 Encounter for antineoplastic chemotherapy (principal); C34.12 Malignant neoplasm of upper lobe, left bronchus or lung
CPT/HCPCS: 96375; 96413; J1100; J1642; J7050; J9267

== ENCOUNTER 2019-10-26 10:01 | Day surgery (SDC) | payer SELFPAY ==
[2019-10-26] MEDS ORDERED: Sodium Chloride 0.9% 20 ML ONE (10:23)
[2019-10-26 12:14] VITALS: BP 126/60; TEMP 97.5
== END 2019-10-26 12:28 | disposition home or self-care (01) ==
LOC: ONC/OP 10:01
PROVIDERS: ATTEND Internal Medicine Hematology & Oncology
DX: Z51.11 Encounter for antineoplastic chemotherapy (principal); C34.12 Malignant neoplasm of upper lobe, left bronchus or lung
CPT/HCPCS: 96375; 96413; J1100; J1642; J7050; J9267

== ENCOUNTER 2019-11-02 14:35 | Day surgery (SDC) | payer OTHER ==
[2019-11-02] MEDS ORDERED: Sodium Chloride 0.9% 20 ML ONE (15:00)
[2019-11-02] MEDS ORDERED: Dexamethasone 4 MG in Sodium Chloride 0.9% 50 ML IVPB SCH (15:15)
[2019-11-02] MEDS ORDERED: PACLITAXEL IVPB SCH (15:15)
[2019-11-02] MEDS ORDERED: SODIUM CHLORIDE 0.9% IVPB SCH (15:15)
[2019-11-02 15:19] VITALS: BP 137/68; TEMP 97.6
== END 2019-11-02 17:53 | disposition home or self-care (01) ==
LOC: ONC/OP 14:35
PROVIDERS: ATTEND Internal Medicine Hematology & Oncology
DX: Z51.11 Encounter for antineoplastic chemotherapy (principal); C34.12 Malignant neoplasm of upper lobe, left bronchus or lung
CPT/HCPCS: 96375; 96413; J1100; J1642; J7050; J9267

== ENCOUNTER 2019-11-09 10:00 | Day surgery (SDC) | payer SELFPAY ==
[~2019-11-09 10:00] MED LIST changes: -Dexamethasone Sod Phosphate 4 MG in Sodium Chloride 0.9% 50 ML IVPB SCH
[2019-11-09] MEDS ORDERED: Sodium Chloride 0.9% 20 ML ONE (10:30)
[2019-11-09 12:03] VITALS: BP 135/80; TEMP 97.7
== END 2019-11-09 13:31 | disposition home or self-care (01) ==
LOC: ONC/OP 10:00
PROVIDERS: ATTEND Internal Medicine Hematology & Oncology
DX: Z51.11 Encounter for antineoplastic chemotherapy (principal); C34.12 Malignant neoplasm of upper lobe, left bronchus or lung
CPT/HCPCS: 96375; 96413; J1100; J1642; J7050; J9267

== ENCOUNTER 2019-11-16 09:49 | Day surgery (SDC) | payer SELFPAY ==
[2019-11-16] MEDS ORDERED: Sodium Chloride 0.9% 20 ML ONE (09:54)
[2019-11-16 11:02] VITALS: BP 113/62; TEMP 98.3
== END 2019-11-16 13:22 | disposition home or self-care (01) ==
LOC: ONC/OP 09:49
PROVIDERS: ATTEND Internal Medicine Hematology & Oncology
DX: Z51.11 Encounter for antineoplastic chemotherapy (principal); C34.12 Malignant neoplasm of upper lobe, left bronchus or lung
CPT/HCPCS: 96375; 96413; J1100; J1642; J7050; J9267

== ENCOUNTER 2019-11-23 09:58 | Day surgery (SDC) | payer SELFPAY ==
[~2019-11-23 09:58] MED LIST changes: +Dexamethasone 4 MG in Sodium Chloride 0.9% 50 ML IVPB SCH
[2019-11-23] MEDS ORDERED: Sodium Chloride 0.9% 20 ML ONE (10:41)
[2019-11-23 13:32] VITALS: BP 131/59; TEMP 97.9
== END 2019-11-23 13:41 | disposition home or self-care (01) ==
LOC: ONC/OP 09:58
PROVIDERS: ATTEND Internal Medicine Hematology & Oncology
DX: Z51.11 Encounter for antineoplastic chemotherapy (principal); C34.12 Malignant neoplasm of upper lobe, left bronchus or lung
CPT/HCPCS: 96375; 96413; J1100; J1642; J7050; J9267

== ENCOUNTER 2019-11-30 10:24 | Day surgery (SDC) | payer OTHER, SELFPAY ==
[~2019-11-30 10:24] MED LIST changes: -Dexamethasone 4 MG in Sodium Chloride 0.9% 50 ML IVPB SCH
[2019-11-30] MEDS ORDERED: Sodium Chloride 0.9% 20 ML ONE (10:27)
[2019-11-30 10:39] VITALS: BP 129/63; TEMP 98.6
== END 2019-11-30 13:34 | disposition home or self-care (01) ==
LOC: ONC/OP 10:24
PROVIDERS: ATTEND Internal Medicine Hematology & Oncology
DX: Z51.11 Encounter for antineoplastic chemotherapy (principal); C34.12 Malignant neoplasm of upper lobe, left bronchus or lung; E03.9 Hypothyroidism, unspecified; F17.210 Nicotine dependence, cigarettes, uncomplicated; Z98.890 Other specified postprocedural states; Z90.710 Acquired absence of both cervix and uterus; Z79.899 Other long term (current) drug therapy
CPT/HCPCS: 96375; 96413; J1100; J1642; J7050; J9267

== ENCOUNTER 2019-12-07 09:12 | Day surgery (SDC) | payer OTHER, SELFPAY ==
[~2019-12-07 09:12] MED LIST changes: +Dexamethasone 4 MG in Sodium Chloride 0.9% 50 ML SLOW IVP SCH
[2019-12-07] MEDS ORDERED: Sodium Chloride 0.9% 20 ML ONE (09:19)
[2019-12-07 10:52] VITALS: BP 119/70; TEMP 98.1
== END 2019-12-07 15:29 | disposition home or self-care (01) ==
LOC: ONC/OP 09:12
PROVIDERS: ATTEND Internal Medicine Hematology & Oncology
DX: Z51.11 Encounter for antineoplastic chemotherapy (principal); C34.12 Malignant neoplasm of upper lobe, left bronchus or lung
CPT/HCPCS: 96375; 96413; J1100; J1642; J7050; J9267

== ENCOUNTER 2019-12-11 08:15 | Outpatient (CLI) | payer OTHER, SELFPAY ==
--- NOTE | 2019-12-11 09:19 | CT ---
CT Chest Abd Pelvis W Con HISTORY: Lung cancer follow-up. Patient currently on chemotherapy. Malignant neoplasm of upper lobe, left bronchus or lung COMPARISON: 09/18/2019 FINDINGS: The 2.4 cm left supraclavicular mass is stable. No mediastinal, hilar or axillary mass or lymphadenop athy is noted. No pleural or pericardial effusions are seen. Emphysematous changes in the lung avery are again seen with the biapical scarring. 6 mm peripheral n odule in the right lower lobe posteriorly is stable. There there is a small new mild reticular nodular infiltrate in the peripheral aspect of the right lower lobe. There is fatty infiltration of the liver. No hepatic mass or abnormal biliary ductal dilatation is se en. The spleen, pancreas, adrenal glands and kidneys are normal. No calcified gallstones are seen. No free air, free fluid or lymphadenopathy is noted in the abdomen or pelvis. The small bowel loops a re not abnormally dilated. The patient is post hysterectomy. There are vascular calcifications without evidence of aneurysmal di latation of the thoracoabdominal aorta. No osteolytic or osteoblastic lesions are seen. Mild compression of the 9 and T10 vertebral bodies is stable. IMPRESSION: Interval development of a small area of mild reticular nodular infiltrate in the right lo wer lobe, otherwise stable exam
--- NOTE | 2019-12-11 10:03 | MRI ---
BRAIN MRI WITH AND WITHOUT CONTRAST: HISTORY: Small cell lung cancer. Status post whole brain radiation therapy for metastases. COMPARISON: 09/18/2019. FINDINGS: Gradient echo sequence: No hemorrhage. Calvarium: Appropriate T1 marrow signal intensity. Midline brain parenchyma: Unremarkable. Cerebrum:No parenchymal mass, mass effect or midline shift. Brain volume is age-appropriate. Cortical bedoya-white matter differentiation is preserved. No significant T2 or FLAIR white matter hyperintensities. Redemonstration of a T2 hyperintense focus in the medial right cerebellar hemispher e, currently measuring 0.6 x 0.4 cm. There is a, this T2 hyperdense focus also measures 0.7 cm. No associated enhancement. Ventricles: No evidence of hydrocephalus. Sinuses and mastoid air cells: Partial opacification of bilateral mastoid air cells. Mild mucosal thi ckening of the paranasal sinuses. Diffusion: Central arterial flow is maintained. Absent restricted diffusion. Postcontrast images:No pathologic enhancement the brain parenchyma. There is a focus of enhancement i nvolving the left frontal extraaxial space, measuring 0.7 x 0.4 cm. Focus of enhancement was noted in May 2019 and may represent a small meningioma. Minimal mass effect upon the adjacent brain p arenchyma. IMPRESSION: 1. Redemonstration of a cystic lesion in the right cerebellar hemisphere likely representing a treate d metastatic focus. No new areas of enhancement to suggest recurrent parenchymal metastases. 2. Persistent opacification of the mastoid air cells. 3. Enhancing focus along the left frontal extra-axial space likely representing a stable meningioma w ith minimal mass effect upon the adjacent cerebrum. Transcribed Date/Time: 12/11/2019 11:10 AM
[2019-12-11] MEDS ORDERED: Iopamidol 370 76% 100 ML VIAL ONE (14:32)
[2019-12-11] MEDS ORDERED: Magnevist 469MG/ML 20 ML VIAL ONE (14:44)
== END 2019-12-11 08:16 | disposition home or self-care (01) ==
LOC: CT 08:15
PROVIDERS: ATTEND Internal Medicine Hematology & Oncology
DX: C34.12 Malignant neoplasm of upper lobe, left bronchus or lung (principal); C79.31 Secondary malignant neoplasm of brain; R91.8 Other nonspecific abnormal finding of lung field; H74.90 Unspecified disorder of middle ear and mastoid, unspecified ear; G93.89 Other specified disorders of brain
CPT/HCPCS: 70553; 71260; 74177; A9579; Q9967

== ENCOUNTER 2019-12-14 10:38 | Day surgery (SDC) | payer OTHER ==
[~2019-12-14 10:38] MED LIST changes: -Dexamethasone 4 MG in Sodium Chloride 0.9% 50 ML SLOW IVP SCH
[2019-12-14] MEDS ORDERED: Sodium Chloride 0.9% 20 ML ONE (11:10)
[2019-12-14 11:11] VITALS: BP 124/56; TEMP 98
== END 2019-12-14 12:55 | disposition home or self-care (01) ==
LOC: ONC/OP 10:38
PROVIDERS: ATTEND Internal Medicine Hematology & Oncology
DX: Z51.11 Encounter for antineoplastic chemotherapy (principal); C34.12 Malignant neoplasm of upper lobe, left bronchus or lung
CPT/HCPCS: 96375; 96413; J1100; J1642; J7050; J9267

== ENCOUNTER 2019-12-21 09:46 | Day surgery (SDC) | payer OTHER ==
[~2019-12-21 09:46] MED LIST changes: +Dexamethasone 4 MG in Sodium Chloride 0.9% 50 ML IVPB SCH
[2019-12-21] MEDS ORDERED: Sodium Chloride 0.9% 20 ML ONE (09:48)
[2019-12-21 11:50] VITALS: BP 107/73; TEMP 98.5
== END 2019-12-21 11:52 | disposition home or self-care (01) ==
LOC: ONC/OP 09:46
PROVIDERS: ATTEND Internal Medicine Hematology & Oncology
DX: Z51.11 Encounter for antineoplastic chemotherapy (principal); C34.12 Malignant neoplasm of upper lobe, left bronchus or lung
CPT/HCPCS: 96375; 96413; J1100; J1642; J7050; J9267

== ENCOUNTER 2019-12-28 09:17 | Day surgery (SDC) | payer OTHER ==
[~2019-12-28 09:17] MED LIST changes: -Dexamethasone 4 MG in Sodium Chloride 0.9% 50 ML IVPB SCH
[2019-12-28] MEDS ORDERED: Sodium Chloride 0.9% 20 ML ONE (09:22)
[2019-12-28 09:33] VITALS: BP 119/71; TEMP 98.2
== END 2019-12-28 10:53 | disposition home or self-care (01) ==
LOC: ONC/OP 09:17
PROVIDERS: ATTEND Internal Medicine Hematology & Oncology
DX: Z51.11 Encounter for antineoplastic chemotherapy (principal); C34.12 Malignant neoplasm of upper lobe, left bronchus or lung; C77.0 Secondary and unspecified malignant neoplasm of lymph nodes of head, face and neck; C78.7 Secondary malignant neoplasm of liver and intrahepatic bile duct; C79.51 Secondary malignant neoplasm of bone; C79.31 Secondary malignant neoplasm of brain; F17.210 Nicotine dependence, cigarettes, uncomplicated; Z90.710 Acquired absence of both cervix and uterus; Z98.890 Other specified postprocedural states
CPT/HCPCS: 96375; 96413; J1100; J1642; J7050; J9267

== ENCOUNTER 2020-01-04 09:23 | Day surgery (SDC) | payer OTHER ==
[~2020-01-04 09:23] MED LIST changes: +Dexamethasone 4 MG in Sodium Chloride 0.9% 50 ML IVPB SCH
[2020-01-04] MEDS ORDERED: Sodium Chloride 0.9% 20 ML ONE (09:25)
[2020-01-04 09:44] VITALS: BP 137/68; TEMP 97.7
== END 2020-01-04 12:13 | disposition home or self-care (01) ==
LOC: ONC/OP 09:23
PROVIDERS: ATTEND Internal Medicine Hematology & Oncology
DX: Z51.11 Encounter for antineoplastic chemotherapy (principal); C34.12 Malignant neoplasm of upper lobe, left bronchus or lung
CPT/HCPCS: 96375; 96413; J1100; J1642; J7050; J9267

== ENCOUNTER 2020-01-10 08:00 | Outpatient (CLI) | payer OTHER ==
--- NOTE | 2020-01-10 09:28 | CT ---
CT CHEST WITH IV CONTRAST: Date: 01/10/2020 PROVIDED CLINICAL HISTORY: Right lung nodules. FINDINGS: Comparison with 12/11/2019 and 09/18/2019. The heart, pericardium, and great vessels demonstrate a stable CT appearance. There is no evidence fo r thoracic lymph node enlargement. Left-sided thyroid nodule does not appear changed with respect to prior studies. Bilateral apical emphysematous changes and pleural parenchymal scarring type opacities are redemonstr ated, stable. Bronchial wall thickening involving the basilar segments of the right lower lobe with partial opacifi cation of the basilar segmental bronchi noted. There has been no definite interval change in the tree -in-bud nodularity involving the right lower lobe. The airway appears otherwise patent and of normal caliber. There is no pleural fluid or pneumothorax apparent. Visualized portions of the upper abdomen demonstrate an unremarkable CT appearance. The osseous structures demonstrate no concerning lytic or blastic lesions. IMPRESSION: 1. Persistent tree-in-bud nodularity involving the basilar segments of the right lower lobe, compati ble with atypical infection such as mycobacterium avium complex. Associated bronchial wall thickening and partial opacification of basilar segmental bronchi on the right compatible with associated bronc hitis. 2. Significant interval change with respect to the prior examinations is not apparent. POS: JEAN
[2020-01-10] MEDS ORDERED: Iopamidol 370 76% 100 ML VIAL ONE (11:04)
== END 2020-01-10 08:01 | disposition home or self-care (01) ==
LOC: CT 08:00
PROVIDERS: ATTEND Internal Medicine Hematology & Oncology
DX: C34.12 Malignant neoplasm of upper lobe, left bronchus or lung (principal); R91.8 Other nonspecific abnormal finding of lung field
CPT/HCPCS: 71260; Q9967

== ENCOUNTER 2020-01-11 09:32 | Day surgery (SDC) | payer OTHER ==
[~2020-01-11 09:32] MED LIST changes: -Dexamethasone 4 MG in Sodium Chloride 0.9% 50 ML IVPB SCH; +Dexamethasone Sod Phosphate 4 MG in Sodium Chloride 0.9% 50 ML IVPB SCH
[2020-01-11] MEDS ORDERED: Sodium Chloride 0.9% 20 ML ONE (09:38)
[2020-01-11 09:55] VITALS: BP 152/67; TEMP 98.2
== END 2020-01-11 11:35 | disposition home or self-care (01) ==
LOC: ONC/OP 09:32
PROVIDERS: ATTEND Internal Medicine Hematology & Oncology
DX: Z51.11 Encounter for antineoplastic chemotherapy (principal); C34.12 Malignant neoplasm of upper lobe, left bronchus or lung
CPT/HCPCS: 96375; 96413; J1100; J1642; J7050; J9267

== ENCOUNTER 2020-01-18 10:40 | Day surgery (SDC) | payer OTHER ==
[2020-01-18] MEDS ORDERED: Sodium Chloride 0.9% 20 ML ONE (11:38)
[2020-01-18 11:45] VITALS: BP 116/67; TEMP 97.8
== END 2020-01-18 15:17 | disposition home or self-care (01) ==
LOC: ONC/OP 10:40
PROVIDERS: ATTEND Internal Medicine Hematology & Oncology
DX: Z51.11 Encounter for antineoplastic chemotherapy (principal); C34.12 Malignant neoplasm of upper lobe, left bronchus or lung
CPT/HCPCS: 96375; 96413; J1100; J1642; J7050; J9267

== ENCOUNTER 2020-01-25 10:30 | Day surgery (SDC) | payer OTHER ==
[~2020-01-25 10:30] MED LIST changes: -Dexamethasone 4 mg/ml Vial SLOW IVP SCH
[2020-01-25] MEDS ORDERED: Sodium Chloride 0.9% 20 ML ONE (10:35)
[2020-01-25 10:49] VITALS: BP 107/70; TEMP 96.9
== END 2020-01-25 12:06 | disposition home or self-care (01) ==
LOC: ONC/OP 10:30
PROVIDERS: ATTEND Internal Medicine Hematology & Oncology
DX: Z51.11 Encounter for antineoplastic chemotherapy (principal); C34.12 Malignant neoplasm of upper lobe, left bronchus or lung
CPT/HCPCS: 96375; 96413; J1100; J1642; J7050; J9267

== ENCOUNTER 2020-02-01 10:54 | Day surgery (SDC) | payer OTHER ==
[~2020-02-01 10:54] MED LIST changes: +Dexamethasone 4 mg/ml Vial SLOW IVP SCH
[2020-02-01] MEDS ORDERED: Sodium Chloride 0.9% 20 ML ONE (11:14)
== END 2020-02-01 13:31 | disposition home or self-care (01) ==
LOC: ONC/OP 10:54
PROVIDERS: ATTEND Internal Medicine Hematology & Oncology
DX: Z51.11 Encounter for antineoplastic chemotherapy (principal); C34.12 Malignant neoplasm of upper lobe, left bronchus or lung
CPT/HCPCS: 96375; 96413; J1100; J1642; J7050; J9267

== ENCOUNTER 2020-02-08 10:06 | Day surgery (SDC) | payer OTHER ==
[~2020-02-08 10:06] MED LIST changes: -Dexamethasone Sod Phosphate 4 MG in Sodium Chloride 0.9% 50 ML IVPB SCH
[2020-02-08] MEDS ORDERED: Sodium Chloride 0.9% 20 ML ONE (10:26)
[2020-02-08 10:27] VITALS: BP 137/82; TEMP 98.6
[2020-02-08 10:43] LABS: #Eosinphils 0.1 thou/uL (0.0-0.7); #Lymphocytes 1.2 thou/uL (1.20-3.40); #Monocytes 0.6 thou/uL (0.11-0.59); #Neutrophils 6.7 thou/uL (1.40-6.50); %Basophils 0.2 % (0.0-1.0); %Eosinophils 0.9 % (0.0-10.0); %Lymphocytes 14.3 % (21.0-51.0); %Monocytes 7.3 % (0.0-10.0); %Neutrophils 77.3 % (42.0-75.0); Hemoglobin 11.3 g/dL (12.0-16.0); Mean Corpuscular Hemoglobin 31.9 pg (27.0-31.0); Mean Corpuscular Volume 99.7 fL (78.0-98.0); Mean Platelet Volume 7.2 fL (7.4-10.4); Platelet Count 438 thou/uL (130-400); RBC Distribution Width 15.6 % (11.5-14.5); Red Blood Cell (RBC) Count 3.55 mill/uL (4.20-5.40); White Blood Cell (WBC) Count 8.6 thou/uL (4.8-10.8)
== END 2020-02-08 14:51 | disposition home or self-care (01) ==
LOC: ONC/OP 10:06
PROVIDERS: ATTEND Internal Medicine Hematology & Oncology
DX: Z51.11 Encounter for antineoplastic chemotherapy (principal); C34.12 Malignant neoplasm of upper lobe, left bronchus or lung
CPT/HCPCS: 84443; 85025; 96375; 96413; J1100; J1642; J7050; J9267

== ENCOUNTER 2020-02-15 10:08 | Day surgery (SDC) | payer OTHER ==
[~2020-02-15 10:08] MED LIST changes: +Dexamethasone Sod Phosphate 4 MG in Sodium Chloride 0.9% 50 ML IVPB SCH; +Sodium Chloride 0.9% 20 ML ONE
[2020-02-15 11:01] LABS: Anisocytosis SLIGHT = 6-15 cells (100X) (0-5/hpf); Band 10 % (5-11); Eosinophils 3 % (0-10); Lymphocytes 15 % (21-51); MDiff Complete? YES; Macrocytosis SLIGHT = 6-15 cells (100X) (0-5/hpf); Mean Corpuscular Hemoglobin 32.9 pg (27.0-31.0); Mean Platelet Volume 7.3 fL (7.4-10.4); Metamyelocyte 2 % (0-0); Monocytes 4 % (0-10); Neutrophil 63 % (42-75); Platelet Count 367 thou/uL (130-400); Platelet Morphology Comment Appears Adequate; Polychromasia SLIGHT = 2-3 cells (100X) (0-2/hpf); RBC Distribution Width 15.9 % (11.5-14.5); Reactive Lymphocytes 3 % (0-10); Red Blood Cell (RBC) Count 3.34 mill/uL (4.20-5.40); Tear Drops SLIGHT = 2-5 cells (100X) (0-1/hpf); White Blood Cell (WBC) Count 6.1 thou/uL (4.8-10.8)
[2020-02-15 11:14] VITALS: BP 134/67; TEMP 98.2
== END 2020-02-15 13:12 | disposition home or self-care (01) ==
LOC: ONC/OP 10:08
PROVIDERS: ATTEND Internal Medicine Hematology & Oncology
DX: Z51.11 Encounter for antineoplastic chemotherapy (principal); C34.12 Malignant neoplasm of upper lobe, left bronchus or lung
CPT/HCPCS: 85007; 85027; 96375; 96413; J1100; J1642; J7050; J9267

== ENCOUNTER 2020-02-22 10:49 | Day surgery (SDC) | payer OTHER ==
[~2020-02-22 10:49] MED LIST changes: -Dexamethasone Sod Phosphate 4 MG in Sodium Chloride 0.9% 50 ML IVPB SCH; -Sodium Chloride 0.9% 20 ML ONE
[2020-02-22] MEDS ORDERED: Sodium Chloride 0.9% 20 ML ONE (10:50)
[2020-02-22 12:48] VITALS: BP 125/74; TEMP 97.7
== END 2020-02-22 12:48 | disposition home or self-care (01) ==
LOC: ONC/OP 10:49
PROVIDERS: ATTEND Internal Medicine Hematology & Oncology
DX: Z51.11 Encounter for antineoplastic chemotherapy (principal); C34.12 Malignant neoplasm of upper lobe, left bronchus or lung
CPT/HCPCS: 96375; 96413; J1100; J1642; J7050; J9267

== ENCOUNTER 2020-02-29 10:02 | Day surgery (SDC) | payer OTHER ==
[~2020-02-29 10:02] MED LIST changes: +Dexamethasone 4 MG in Sodium Chloride 0.9% 50 ML SLOW IVP SCH
[2020-02-29] MEDS ORDERED: Sodium Chloride 0.9% 20 ML ONE (10:06)
[2020-02-29 10:43] LABS: #Eosinphils 0.1 thou/uL (0.0-0.7); #Lymphocytes 1.1 thou/uL (1.20-3.40); #Monocytes 0.5 thou/uL (0.11-0.59); %Basophils 0.3 % (0.0-1.0); %Lymphocytes 16.7 % (21.0-51.0); %Monocytes 7.1 % (0.0-10.0); %Neutrophils 74.8 % (42.0-75.0); Hemoglobin 11.5 g/dL (12.0-16.0); Mean Corpuscular HGB CONC 32.7 g/dL (32.0-36.0); Mean Corpuscular Hemoglobin 32.9 pg (27.0-31.0); Mean Platelet Volume 7.1 fL (7.4-10.4); Platelet Count 421 thou/uL (130-400); RBC Distribution Width 15.6 % (11.5-14.5); Red Blood Cell (RBC) Count 3.48 mill/uL (4.20-5.40); White Blood Cell (WBC) Count 6.7 thou/uL (4.8-10.8)
[2020-02-29 11:47] VITALS: BP 113/65; TEMP 97.9
== END 2020-02-29 12:30 | disposition home or self-care (01) ==
LOC: ONC/OP 10:02
PROVIDERS: ATTEND Internal Medicine Hematology & Oncology
DX: Z51.11 Encounter for antineoplastic chemotherapy (principal); C34.12 Malignant neoplasm of upper lobe, left bronchus or lung
CPT/HCPCS: 85025; 96375; 96413; J1100; J1642; J7050; J9267

== ENCOUNTER 2020-03-07 09:38 | Day surgery (SDC) | payer OTHER ==
[~2020-03-07 09:38] MED LIST changes: -Dexamethasone 4 MG in Sodium Chloride 0.9% 50 ML SLOW IVP SCH
[2020-03-07] MEDS ORDERED: Sodium Chloride 0.9% 20 ML ONE (09:43)
[2020-03-07 10:02] VITALS: BP 109/78; TEMP 98.1
[2020-03-07 10:12] LABS: White Blood Cell (WBC) Count 6.5 thou/uL (4.8-10.8)
[2020-03-07 10:13] LABS: #Basophils 0.1 thou/uL (0.0-0.2); #Eosinphils 0.1 thou/uL (0.0-0.7); #Lymphocytes 0.9 thou/uL (1.20-3.40); #Monocytes 0.6 thou/uL (0.11-0.59); #Neutrophils 4.8 thou/uL (1.40-6.50); %Basophils 0.9 % (0.0-1.0); %Eosinophils 0.8 % (0.0-10.0); %Lymphocytes 14.3 % (21.0-51.0); %Monocytes 9.4 % (0.0-10.0); %Neutrophils 74.6 % (42.0-75.0); Mean Corpuscular HGB CONC 33.4 g/dL (32.0-36.0); Mean Corpuscular Hemoglobin 33.1 pg (27.0-31.0); Mean Corpuscular Volume 99.1 fL (78.0-98.0); Mean Platelet Volume 7.6 fL (7.4-10.4); Platelet Count 336 thou/uL (130-400); RBC Distribution Width 15.8 % (11.5-14.5); Red Blood Cell (RBC) Count 3.34 mill/uL (4.20-5.40)
== END 2020-03-07 12:04 | disposition home or self-care (01) ==
LOC: ONC/OP 09:38
PROVIDERS: ATTEND Internal Medicine Hematology & Oncology
DX: Z51.11 Encounter for antineoplastic chemotherapy (principal); C34.12 Malignant neoplasm of upper lobe, left bronchus or lung
CPT/HCPCS: 84443; 85025; 96375; 96413; J1100; J1642; J7050; J9267

== ENCOUNTER 2020-03-12 08:06 | Outpatient (CLI) | payer OTHER ==
--- NOTE | 2020-03-12 09:40 | MRI ---
Exam: Brain MRI with and without contrast HISTORY: Malignant neoplasm of the lung. Left lung cancer. Brain metastases. Evaluate for progression /response. COMPARISON: 12/11/2019 FINDINGS: Gradient echo sequence: No hemorrhage Calvarium: Appropriate T1 marrow signal intensity Midline brain parenchyma: Unremarkable Cerebrum:No parenchymal mass, mass effect or midline shift. Brain volume is age-appropriate. Cortical bedoya-white matter differentiation is preserved. T2 and FLAIR white matter hyperintensities are similar to the previous examination. Chronic small vessel change. Nonenhancing T2 hyperintensity janice g the medial right cerebellar hemispheres redemonstrated measuring 0.8 x 0.4 cm Ventricles: No evidence of hydrocephalus. Sinuses and mastoid air cells: Partial opacification bilateral mastoid air cells. Diffusion: Central arterial flow is maintained. Absent restricted diffusion. Postcontrast images: No pathologic enhancement of the brain parenchyma. Stable enhancing focus along the left frontal extra-axial space, measuring 0.9 x 0.4 cm, previously measuring 0.4 x 0.7 cm. Stable hemangioma is favored. IMPRESSION: 1. No evidence of brain parenchymal metastases. Stable treated lesion in the right cerebellar hemisph ere with a cystic appearance. 2. Persistent opacification of bilateral mastoid air cells. 3. Stable enhancing focus in the left frontal extra-axial space which may represent a meningioma.
--- NOTE | 2020-03-12 11:06 | CT ---
CT CHEST AND ABDOMEN AND PELVIS WITH IV CONTRAST: INDICATION: Lung cancer. Evaluate response. COMPARISON: Comparison is made to CT chest, abdomen, and pelvis 12/11/2019. Comparison is made to CT chest 01/10/2020. FINDINGS: CT CHEST: The chronic lung changes are again seen with prominent emphysematous changes again noted. Numerous b ullae in the upper lobes. Nodular parenchymal opacity in the left apical region appears stable. The reticulonodular process previously described in the right lower lobe with tree-in-bud configurati on is again seen. This process in the right lower lobe appears stable from the 12/11/2019 and 01/10/20 20 examinations. The mild peribronchial thickening in the right lower lobe bronchi described previou sacha is also stable in appearance. The pleural-based in the posterior right lower lobe remains stable again measuring in the 6 mm range. No evidence of new infiltrate. There is no effusion. The mediastinum is unremarkable and stable. The paratracheal supraclavicular mass on the left which has been previously described is again noted at the level of the left lobe of the thyroid. This mass continues to measure in the 3 cm range and i s stable in appearance. Osseous structures are unremarkable. IMPRESSION: CT chest is stable from the prior studies of 01/10/2020 and 12/11/2019. CT ABDOMEN AND PELVIS: Liver, spleen, pancreas, adrenal glands, and kidneys are unremarkable. Bowel loops are unremarkable. Diverticulosis of the sigmoid is again noted. Aorta shows atherosclerotic change and mild ectasis and is stable. No adenopathy. No mass or free f luid. Osseous structures unremarkable and unchanged. IMPRESSION: No acute process. Stable findings when compared to prior exam. POS: SJDI
[2020-03-12] MEDS ORDERED: Iopamidol 370 76% 100 ML VIAL ONE (15:28)
[2020-03-12] MEDS ORDERED: Magnevist 469MG/ML 20 ML VIAL ONE (15:34)
== END 2020-03-12 08:07 | disposition home or self-care (01) ==
LOC: CT 08:06
PROVIDERS: ATTEND Internal Medicine Hematology & Oncology
DX: C34.12 Malignant neoplasm of upper lobe, left bronchus or lung (principal); C79.31 Secondary malignant neoplasm of brain; H74.8X3 Other specified disorders of middle ear and mastoid, bilateral; G93.89 Other specified disorders of brain
CPT/HCPCS: 70553; 71260; 74177; A9579; Q9967

== ENCOUNTER 2020-03-14 10:41 | Day surgery (SDC) | payer OTHER ==
[~2020-03-14 10:41] MED LIST changes: +Dexamethasone Sod Phosphate 4 MG in Sodium Chloride 0.9% 50 ML IVPB SCH
[2020-03-14] MEDS ORDERED: Sodium Chloride 0.9% 30 ML ONE (10:47)
[2020-03-14] MEDS ORDERED: PACLITAXEL IVPB SCH (11:00)
[2020-03-14] MEDS ORDERED: SODIUM CHLORIDE 0.9% IVPB SCH (11:00)
[2020-03-14 11:15] VITALS: BP 114/56; TEMP 97.9
== END 2020-03-14 13:36 | disposition home or self-care (01) ==
LOC: ONC/OP 10:41
PROVIDERS: ATTEND Internal Medicine Hematology & Oncology
DX: Z51.11 Encounter for antineoplastic chemotherapy (principal); C34.12 Malignant neoplasm of upper lobe, left bronchus or lung
CPT/HCPCS: 96375; 96413; J1100; J1642; J7050; J9267

== ENCOUNTER 2020-03-21 09:47 | Day surgery (SDC) | payer OTHER ==
[~2020-03-21 09:47] MED LIST changes: -Dexamethasone Sod Phosphate 4 MG in Sodium Chloride 0.9% 50 ML IVPB SCH
[2020-03-21] MEDS ORDERED: Sodium Chloride 0.9% 20 ML ONE (09:49)
[2020-03-21 10:08] LABS: #Lymphocytes 0.9 thou/uL (1.20-3.40); #Monocytes 0.6 thou/uL (0.11-0.59); #Neutrophils 4.5 thou/uL (1.40-6.50); %Basophils 0.5 % (0.0-1.0); %Eosinophils 0.8 % (0.0-10.0); %Lymphocytes 15.2 % (21.0-51.0); %Monocytes 9.2 % (0.0-10.0); %Neutrophils 74.3 % (42.0-75.0); Hemoglobin 11.1 g/dL (12.0-16.0); Mean Corpuscular HGB CONC 33.6 g/dL (32.0-36.0); Mean Corpuscular Hemoglobin 33.3 pg (27.0-31.0); Mean Corpuscular Volume 99.3 fL (78.0-98.0); Mean Platelet Volume 7.2 fL (7.4-10.4); Platelet Count 467 thou/uL (130-400); RBC Distribution Width 15.5 % (11.5-14.5); Red Blood Cell (RBC) Count 3.34 mill/uL (4.20-5.40)
[2020-03-21 11:28] VITALS: BP 117/53; TEMP 97.9
== END 2020-03-21 11:29 | disposition home or self-care (01) ==
LOC: ONC/OP 09:47
PROVIDERS: ATTEND Internal Medicine Hematology & Oncology
DX: Z51.11 Encounter for antineoplastic chemotherapy (principal); C34.12 Malignant neoplasm of upper lobe, left bronchus or lung
CPT/HCPCS: 85025; 96375; 96413; J1100; J1642; J7050; J9267

== ENCOUNTER 2020-04-04 10:33 | Day surgery (SDC) | payer OTHER ==
[2020-04-04] MEDS ORDERED: Sodium Chloride 0.9% 20 ML ONE (11:51)
[2020-04-04] MEDS ORDERED: Sodium Chloride 0.9% 1,000 ML IV SCH (12:00)
[2020-04-04 12:33] VITALS: BP 125/64; TEMP 98.7
== END 2020-04-04 15:24 | disposition home or self-care (01) ==
LOC: ONC/OP 10:33
PROVIDERS: ATTEND Internal Medicine Hematology & Oncology
DX: Z51.11 Encounter for antineoplastic chemotherapy (principal); C34.12 Malignant neoplasm of upper lobe, left bronchus or lung
CPT/HCPCS: 96361; 96375; 96413; 96415; J1100; J1642

== ENCOUNTER 2020-04-08 07:50 | Outpatient (CLI) | payer OTHER ==
--- NOTE | 2020-04-08 09:10 | MRI ---
MRI OF THE LEFT SHOULDER PERFORMED WITHOUT CONTRAST ENHANCEMENT: HISTORY: Frequent falls, left shoulder pain. COMPARISON: A 10/12/2019 film of the left humerus. FINDINGS: The fracture involving the left humeral neck and great tuberosity region is still evident and there i s fluid through the fracture line. No evidence of healing. There is joint effusion associated with this. There are edema changes on either side of the fracture. There is mild arthrosis of the AC joint. The infraspinatus tendon is intact. There is an interstiti al tear involving the supraspinatus tendon. A small lower grade undersurface tear of the far anterio r aspect. The subscapularis muscle and tendon appear intact. There is considerable motion artifact which degra lizzie detail. The biceps tendon is normal in position within the bicipital groove. Assessment of the labrum is extremely limited due to the presence of extensive motion. Edema changes are seen along the inferior glenohumeral ligament related to the fracture of the humeral neck. Severe Rotator cuff atrophy is noted. Almost complete fatty replacement of the subscapularis muscle. Significant volume loss of the supraspinatus muscle and mild volume loss to the infraspinatus. IMPRESSION: 1. Persistent nonunion fracture of the left humeral neck. There is mild joint effusion. The fractu re itself shows edema change on either side of the fracture line. Overall alignment is fairly satisf actory without any significant displacement or angulation appreciated. 2. Marked atrophy of the subscapularis muscle. 3. Small interstitial and undersurface tear of the supraspinatus tendon. POS: TYSON
== END 2020-04-08 07:51 | disposition home or self-care (01) ==
LOC: TBSIIMAG 07:50
PROVIDERS: ATTEND Physician Assistant Surgical
DX: M75.102 Unspecified rotator cuff tear or rupture of left shoulder, not specified as traumatic (principal)

== ENCOUNTER 2020-04-11 09:42 | Day surgery (SDC) | payer OTHER ==
[~2020-04-11 09:42] MED LIST changes: +Dexamethasone Sod Phosphate 4 MG in Sodium Chloride 0.9% 50 ML IVPB SCH
[2020-04-11] MEDS ORDERED: Sodium Chloride 0.9% 0 ML ONE (10:00)
[2020-04-11 10:19] LABS: #Eosinphils 0.1 thou/uL (0.0-0.7); #Lymphocytes 1.2 thou/uL (1.20-3.40); #Monocytes 0.9 thou/uL (0.11-0.59); %Basophils 0.1 % (0.0-1.0); %Eosinophils 1.2 % (0.0-10.0); %Lymphocytes 11.9 % (21.0-51.0); %Monocytes 8.8 % (0.0-10.0); Hemoglobin 11.2 g/dL (12.0-16.0); Mean Corpuscular HGB CONC 31.7 g/dL (32.0-36.0); Mean Corpuscular Hemoglobin 31.7 pg (27.0-31.0); Mean Corpuscular Volume 99.9 fL (78.0-98.0); Platelet Count 499 thou/uL (130-400); RBC Distribution Width 15.7 % (11.5-14.5); Red Blood Cell (RBC) Count 3.54 mill/uL (4.20-5.40); White Blood Cell (WBC) Count 10.3 thou/uL (4.8-10.8)
[2020-04-11] MEDS ORDERED: Sodium Chloride 0.9% 20 ML ONE (11:17)
[2020-04-11 11:27] LABS: ALT (SGPT) 12 U/L (8-55); AST (SGOT) 11 U/L (5-34); Albumin 3.5 g/dL (3.5-5.0); Alkaline Phosphatase 68 U/L (40-110); BUN (Urea Nitrogen) 12 mg/dL (9.8-20.1); Bilirubin, Total 0.2 mg/dL (0.2-1.2); Calc. Creatinine Clearance 0 mL/min (70-130); Calcium 9.2 mg/dL (7.8-10.44); Carbon Dioxide 25 mmol/L (22-29); Chloride 101 mmol/L (98-107); Estimated GFR-MDRD Greater than 90; Globulin 2.4 g/dL (2.4-3.5); Glucose 92 mg/dL (70-105); Potassium 4.2 mmol/L (3.5-5.1); Protein, Total 5.9 g/dL (6.0-8.3); Sodium 135 mmol/L (136-145)
[2020-04-11 11:45] VITALS: BP 135/78; TEMP 97.6
[2020-04-11 13:04] LABS: Anion Gap 13 mmol/L (10-20)
== END 2020-04-11 11:59 | disposition home or self-care (01) ==
LOC: ONC/OP 09:42
PROVIDERS: ATTEND Internal Medicine Hematology & Oncology
DX: Z51.11 Encounter for antineoplastic chemotherapy (principal); C34.12 Malignant neoplasm of upper lobe, left bronchus or lung
CPT/HCPCS: 80053; 85025; 96375; 96413; J1100; J1642; J3490; J7050; J9267

== ENCOUNTER 2020-04-18 09:39 | Day surgery (SDC) | payer OTHER ==
[2020-04-18] MEDS ORDERED: Sodium Chloride 0.9% 20 ML ONE (09:43)
[2020-04-18 09:59] VITALS: BP 121/70; TEMP 98.1
[2020-04-18 10:18] LABS: #Eosinphils 0.1 thou/uL (0.0-0.7); #Monocytes 0.6 thou/uL (0.11-0.59); #Neutrophils 6.6 thou/uL (1.40-6.50); %Basophils 0.3 % (0.0-1.0); %Eosinophils 1.4 % (0.0-10.0); %Lymphocytes 11.5 % (21.0-51.0); %Monocytes 7.2 % (0.0-10.0); %Neutrophils 79.5 % (42.0-75.0); Hemoglobin 10.7 g/dL (12.0-16.0); Mean Corpuscular HGB CONC 32.8 g/dL (32.0-36.0); Mean Platelet Volume 7.3 fL (7.4-10.4); Platelet Count 425 thou/uL (130-400); RBC Distribution Width 15.8 % (11.5-14.5); Red Blood Cell (RBC) Count 3.24 mill/uL (4.20-5.40); White Blood Cell (WBC) Count 8.3 thou/uL (4.8-10.8)
== END 2020-04-18 12:04 | disposition home or self-care (01) ==
LOC: ONC/OP 09:39
PROVIDERS: ATTEND Internal Medicine Hematology & Oncology
DX: Z51.11 Encounter for antineoplastic chemotherapy (principal); C34.12 Malignant neoplasm of upper lobe, left bronchus or lung
CPT/HCPCS: 85025; 96375; 96413; J1100; J1642; J7050; J9267

== ENCOUNTER 2020-05-29 11:00 | Day surgery (SDC) | payer OTHER ==
[~2020-05-29 11:00] MED LIST changes: -Dexamethasone 4 mg/ml Vial SLOW IVP SCH; +Dexamethasone Sod Phosphate 10 MG, Ondansetron 2MG/ML MDV 10 MG in Sodium Chloride 0.9%... IVPB SCH; -Dexamethasone Sod Phosphate 4 MG in Sodium Chloride 0.9% 50 ML IVPB SCH; +LURBINECTEDIN IV SCH; -PACLITAXEL IVPB SCH; +SODIUM CHLORIDE 0.9% IV SCH; -SODIUM CHLORIDE 0.9% IVPB SCH; +[UNRECOGNIZED DRUG - OTHER] IV SCH
--- NOTE | 2020-05-29 12:06 | ULT ---
LEFT UPPER EXTREMITY VENOUS DOPPLER ULTRASOUND: HISTORY: Left upper extremity edema. Patient is undergoing chemotherapy. TECHNIQUE: Grayscale color-flow and spectral Doppler imaging of the deep venous systems of the left upper extrem ity was performed. FINDINGS: The left internal jugular vein wasn't able to be evaluated due to patient discomfort and enlarged lym ph nodes in this region and a small veins. There is good flow, compression and normal spectral waveforms in the subclavian, axillary, brachial, radial, ulnar, basilic and cephalic veins in the left upper extremity.. There are enlarged lymph nodes in the left lower neck. IMPRESSION: No definite evidence of DVT in the left upper extremity.
[2020-05-29] MEDS ORDERED: Sodium Chloride 0.9% 20 ML ONE (12:07)
[2020-05-29 12:45] VITALS: BP 138/77; TEMP 97.8
== END 2020-05-29 14:06 | disposition home or self-care (01) ==
LOC: ULT 11:00 → ONC/OP 14:06
PROVIDERS: ATTEND Internal Medicine Hematology & Oncology
DX: Z51.11 Encounter for antineoplastic chemotherapy (principal); C34.12 Malignant neoplasm of upper lobe, left bronchus or lung
CPT/HCPCS: 96375; 96413; J1100; J1642; J2405

== ENCOUNTER 2020-06-05 08:48 | Outpatient (CLI) | payer OTHER ==
--- NOTE | 2020-06-05 11:16 | MRI ---
Exam: Brain MRI with and without contrast HISTORY: Left lung cancer. Evaluate for intracranial metastases. COMPARISON: 03/12/2020 FINDINGS: Gradient echo sequence: No hemorrhage Calvarium: Appropriate T1 marrow signal intensity Midline brain parenchyma: Unremarkable Cerebrum:No parenchymal mass, mass effect or midline shift. Age-appropriate atrophy. Cortical bedoya-wh ite matter differentiation is preserved. Stable white matter hyperintensities compatible with chronic small vessel ischemic change. Cerebellum: Stable T2 hyperintensity in the right cerebellar hemisphere, measuring 0.7 cm. No associa matt enhancement on the postcontrast images. No additional lesions in the cerebellum. Ventricles: No evidence of hydrocephalus. Sinuses and mastoid air cells: Mucosal thickening of the paranasal sinuses. Stable opacification of t he mastoid air cells, right greater than left. Diffusion: Central arterial flow is maintained. Absent restricted diffusion. Postcontrast images: No pathologic enhancement of the brain parenchyma. Incidentals: Stable enhancing extra-axial focus along the left frontal convexity compatible with a 0. 8 cm meningioma. No significant mass effect upon the adjacent left frontal lobe. IMPRESSION: 1. No evidence of intraparenchymal metastases. Stable posttreatment changes in the right cerebellar h emisphere 2. Persistent opacification of bilateral mastoid air cells. 2. Stable and meningioma in the left frontal extra-axial space.
--- NOTE | 2020-06-05 12:22 | CT ---
EXAM: CT chest, abdomen, and pelvis with IV contrast: HISTORY: Follow-up lung cancer. COMPARISON: 03/12/2020 FINDINGS: CT THORAX: Lungs: Previously seen filling defects within the right lower lobe bronchi appear to have resolved. M inimal reticulonodular densities are seen in the right lower lobe, these reticulonodular densities at also improved. There is stable linear nodular parenchymal opacities in each lung apex which are ov erall stable may related to chronic lung changes. Emphysematous changes are again seen. A new discrete pulmonary nodule or mass is not visualized. Pleura: No pleural effusion. Lymph nodes: There has been interval enlargement of the left paratracheal/supraclavicular mass with l ow-density area centrally suggesting a necrotic lesion. This mass measures 6.2 cm x 4.9 cm on today's examination with greatest dimension on prior study of 2.9 cm. There is a new smaller left par atracheal superior mediastinal low-density lesion measuring 1 cm in short axis dimension which also demonstrates lower attenuation centrally suggest a small necrotic lymph node. There is also suggestio n of minimal soft tissue density seen insinuating between the region of the region of the great vessels which also appeared to have been present on the prior exam. No additional enlarged mediastina l, hilar, or axillary lymph nodes are identified. Mediastinum: As above. Chest wall: A right subclavian Mediport catheter remains in place. CT ABDOMEN AND PELVIS: Liver: Within normal limits. Gallbladder: There is question of a very tiny nodular area of wall thickening on the posterior gallbl adder wall. This was similar to the prior exam Uncertain etiology. A tiny gallbladder polyp would be difficult to exclude based on CT evaluation. Ga llbladder ultrasound may be helpful for further evaluation. Pancreas: Tiny punctate low-density focus at the inferior aspect proximal body the pancreas. On coron al images, this appears to represent fat insinuating this region. Similar finding was seen on prior exam. Pancreas otherwise has a normal CT appearance. Spleen: Within normal limits. Adrenal glands: Within normal limits. Kidneys: Within normal limits. Urinary Bladder: Incompletely distended but otherwise grossly within normal limits. Reproductive organs: Evidence of hysterectomy. Bowel: Evidence of colonic diverticulosis with small amount retained fecal material seen throughout t he colon. Loops of small bowel are normal in caliber. Adenopathy:No lymphadenopathy within the abdomen or pelvis. Peritoneum: No free fluid or fluid collection is seen. No free intraperitoneal gas is identified. Abdominal wall: No abnormalities seen. Osseous structures: No suspicious lytic or sclerotic osseous lesion. IMPRESSION: 1. Interval enlargement of a heterogeneous necrotic appearing mass in the left supraclavicular/left p aratracheal location which extends into the infraclavicular location. Largest dimension on today's exam is 6.2 cm. 2. Interval development of a superior mediastinal left paratracheal necrotic lymph node. In addition, there is minimal soft tissue density seen insinuating between the origin of the great vessels which is a stable finding and may also represent lymphadenopathy. 3. Overall stable chronic lung changes including nodular appearing parenchymal opacities within the u pper lung zones and evidence of emphysematous changes. 4. Resolution of filling defects in right lower lobe bronchi as well as improvement in reticulonodula r densities right lower lobe. 5. Suggestion of minimal area of nodular bladder wall thickening posterior wall gallbladder which cou ld potentially represent a tiny gallbladder polyp. Unchanged from prior exam. Follow-up right upper quadrant ultrasound may be helpful for further evaluation. 6. No acute findings in the abdomen or pelvis.
--- NOTE | 2020-06-05 14:31 | CT ---
CT NECK WITH CONTRAST: 06/05/20 INDICATIONS: Lung cancer. FINDINGS: Parotid glands and submandibular glands unremarkable and symmetric. Thyroid gland appears small and a trophic. Nasopharynx unremarkable. Oropharynx appears symmetric. Waldeyer's ring shows symmetric enhancement a t the palatine tonsils. The hypopharynx and larynx appear unremarkable. Parapharyngeal space and retropharyngeal space unremarkable. There is a large peripherally enhancing essentially necrotic mass in the left lower neck which is lizzie cribed on today's chest CT. This begins at the level of the hyoid bone on the left just lateral to th e vascular bundle and extends inferiorly to the infraclavicular region. It measures up to 6 cm AP dim ension in axial plane. It produces mass effect on the vascular bundle. It is located posterior to the sternocleidomastoid and may involve the sternocleidomastoid muscle. A small re-enhancing 1 cm nodule on the lateral margin of this mass may represent a separate necrotic node. Adenopathy in the mediast inum is noted and was described on CT from earlier today. This mass is producing mass effect on the l arynx and upper trachea. Otherwise, no evidence of cervical adenopathy. There are other nonspecific level I and Level II lymph nodes bilaterally. Osseous structures unremarkable. Cervical spine unremarkable. Paranasal sinuses are clear. There is mucosal edema seen in both mastoid air cells inferiorly. IMPRESSION: Peripherally enhancing centrally necrotic mass consistent with a pathologic adenopathy in the left ne ck is noted. Pathologic adenopathy secondary to neoplasm would be the primary concern. POS: CHRISTOPHER
--- NOTE | 2020-06-05 14:40 | NM ---
Exam: Nuclear medicine whole body bone scan COMPARISON: 04/07/2019 HISTORY: Metastatic lung cancer. Correlation: Chest abdomen and pelvic CT 06/05/2020 TECHNIQUE: Patient was administered 33 mCi of technetium 99m MDP intravenously. FINDINGS: Physiologic distribution of the radiotracer Uptake in the right mandible likely due to periodontal disease. Uptake involving the proximal left humeral neck compatible with known pathologic fracture Uptake in the anterior right fifth rib and anterolateral right eighth rib have corresponding sclerosi s suggesting remote fractures of uncertain etiology. Subtle uptake at the T10 vertebral body, unchanged. There is no scintigraphic evidence of new or acute osseous metastases IMPRESSION: Multiple remote findings as described above. No scintigraphic evidence of acute osseous m etastases. Transcribed Date/Time: 06/05/2020 3:11 PM
[2020-06-05] MEDS ORDERED: Iopamidol 370 76% 100 ML VIAL ONE (15:18)
[2020-06-05] MEDS ORDERED: Magnevist 469MG/ML 20 ML VIAL ONE (15:34)
== END 2020-06-05 08:49 | disposition home or self-care (01) ==
LOC: MRI 08:48
PROVIDERS: ATTEND Internal Medicine Hematology & Oncology
DX: C34.12 Malignant neoplasm of upper lobe, left bronchus or lung (principal); C34.02 Malignant neoplasm of left main bronchus; C79.31 Secondary malignant neoplasm of brain; R91.8 Other nonspecific abnormal finding of lung field; D32.0 Benign neoplasm of cerebral meninges
CPT/HCPCS: 70491; 70553; 71260; 74177; 78306; 82565; A9503; A9579; Q9967

== ENCOUNTER 2020-06-19 09:49 | Day surgery (SDC) | payer OTHER ==
[~2020-06-19 09:49] MED LIST changes: -[UNRECOGNIZED DRUG - OTHER] IV SCH
[2020-06-19 10:46] VITALS: BP 122/73; TEMP 97.8
== END 2020-06-19 13:00 | disposition home or self-care (01) ==
LOC: ONC/OP 09:49
PROVIDERS: ATTEND Internal Medicine Hematology & Oncology
DX: Z51.11 Encounter for antineoplastic chemotherapy (principal); C34.12 Malignant neoplasm of upper lobe, left bronchus or lung; C34.02 Malignant neoplasm of left main bronchus
CPT/HCPCS: 96375; 96413; J1100; J2405

== ENCOUNTER 2020-06-25 18:41 | Emergency (ER) | payer OTHER, SELFPAY ==
--- NOTE | 2020-06-25 19:55 | RAD ---
Exam:4 views left knee HISTORY: Trauma. Pain. COMPARISON: None FINDINGS: No joint effusion. Preserved joint spaces. Diffuse bone demineralization. No fracture. IMPRESSION: No fracture.
--- NOTE | 2020-06-25 19:56 | RAD ---
Exam:Exam: Left foot 3 views HISTORY: Trauma. Pain. COMPARISON: None FINDINGS: Lisfranc alignment is maintained. Joint spaces are preserved. No fracture. No significant s oft tissue swelling. IMPRESSION: No fracture.
--- NOTE | 2020-06-25 19:56 | RAD ---
Exam:Left tibia fibula 2 views HISTORY: Trauma. Pain. COMPARISON: None FINDINGS: No fracture, cortical irregularity or periosteal reaction. IMPRESSION: No fracture.
--- NOTE | 2020-06-25 19:57 | RAD ---
Exam:Left ankle 3 views HISTORY: Trauma. Pain. COMPARISON: None FINDINGS: No significant soft tissue swelling. No fracture, cortical irregularity or periosteal react ion. IMPRESSION: No fracture.
[2020-06-25] MEDS ORDERED: HYDROcodone/Acetaminophen 5/325 mg Tablet ONE (19:59)
== END 2020-06-25 21:02 | disposition home or self-care (01) ==
LOC: ERS 18:41
DX: M25.572 Pain in left ankle and joints of left foot (principal); E03.9 Hypothyroidism, unspecified; Z87.891 Personal history of nicotine dependence; Z79.899 Other long term (current) drug therapy; W01.0XXA Fall on same level from slipping, tripping and stumbling without subsequent striking against object, initial encounter

== ENCOUNTER 2020-07-10 10:18 | Day surgery (SDC) | payer SELFPAY ==
[~2020-07-10 10:18] MED LIST changes: +Sodium Chloride 0.9% 20 ML ONE
[2020-07-10 10:25] VITALS: BP 131/80; TEMP 97.8
== END 2020-07-10 14:04 | disposition home or self-care (01) ==
LOC: ONC/OP 10:18
PROVIDERS: ATTEND Internal Medicine Hematology & Oncology
DX: Z51.11 Encounter for antineoplastic chemotherapy (principal); C34.12 Malignant neoplasm of upper lobe, left bronchus or lung; C34.02 Malignant neoplasm of left main bronchus
CPT/HCPCS: 96375; 96413; J1100; J1642; J2405

== ENCOUNTER 2020-07-31 14:32 | Day surgery (SDC) | payer OTHER, SELFPAY ==
[~2020-07-31 14:32] MED LIST changes: -Sodium Chloride 0.9% 20 ML ONE
[2020-07-31] MEDS ORDERED: Sodium Chloride 0.9% 20 ML ONE (14:46)
== END 2020-07-31 16:25 | disposition home or self-care (01) ==
LOC: ONC/OP 14:32
PROVIDERS: ATTEND Internal Medicine Hematology & Oncology
DX: Z51.11 Encounter for antineoplastic chemotherapy (principal); C34.12 Malignant neoplasm of upper lobe, left bronchus or lung; C34.02 Malignant neoplasm of left main bronchus
CPT/HCPCS: 96375; 96413; J1100; J1642; J2405

== ENCOUNTER 2020-08-19 07:58 | Outpatient (CLI) | payer OTHER, SELFPAY ==
[2020-08-19 08:58] LABS: Estimated GFR-MDRD - POC Greater than 90
--- NOTE | 2020-08-19 09:51 | CT ---
CT neck soft tissues with contrast: 08/19/2020 HISTORY: 60-year-old female with small cell lung cancer presents for left neck mass follow-up, evaluate respon se to chemotherapy and radiation therapy. COMPARISON: 06/05/2020 FINDINGS: The large, necrotic, peripherally heterogeneously enhancing left neck tumor mass, has decreased in si ze. Previous dimensions were approximately 8.5 x 6 x 3.5 cm. It is currently approximately 7 x 5.5 x 5 cm. It still medially displace of the left common carotid artery, and it compresses and completel y effaces the left internal jugular vein. It displaces the larynx and trachea to the right. Bilateral upper lobe bullae plus centrilobular emphysematous changes of the lungs. Right-sided implantable vascular access port Right true and false vocal cords are slightly thicker than the left with slightly greater degree of e nhancement. This is especially so posteriorly. This is slightly greater than on previous CT. These are nonspecific changes. Other than displacement by the mass, no major pathology identified involving submandibular, parotid, parapharyngeal, retropharyngeal, kiln feeder, or right posterior cervical space. In the left posterior cervical space, there is a round 1 cm new necrotic satellite level 5 metastatic cervical lymph node. IMPRESSION: 1.) The malignant, necrotic left neck mass, consistent with conglomeration of metastatic cervical lym phadenopathy remains large, but has become smaller than before. 2) centrilobular and paraseptal emphysema. 3) nonspecific changes involving right side of the larynx. Consider direct visualization.
[2020-08-19] MEDS ORDERED: Iopamidol 370 76% 100 ML VIAL ONE (10:06)
[2020-08-19] MEDS ORDERED: Magnevist 469MG/ML 20 ML VIAL ONE (10:22)
--- NOTE | 2020-08-19 11:32 | MRI ---
MRI BRAIN WITH AND WITHOUT CONTRAST: DATE: 08/19/2020 HISTORY: 60-year-old female with small cell lung cancer. COMPARISON: 06/05/2020 TECHNIQUE: Multiplanar, multisequence MRI of the brain obtained pre and post IV injection of gadolinium based co ntrast agent. FINDINGS: There is no obstructive hydrocephalus. There is no midline shift or any other evidence of mass effect . There is no extra-axial fluid collection. There is a moderate degree of T2-hyperintensities in the cerebral white matter consistent with chronic ischemic white matter changes due to microvascular atherosclerosis. This is perhaps minimally worse than 06/05/2020. This was not present on 10/03/2018, and therefore probably represent post radiation changes. There is no abnormal enhancement, mass, rece nt hemorrhage, or restricted diffusion. There is fluid throughout the bilateral middle ear cavities, mastoid antra, and all mastoid air cells, slightly worse than 06/05/2020. No interval change in the very small 0.7 x 0.5 x 0.5 centimeter parenchymal defect at the inferior edge of the right cerebellar hemisphere with CSF signal and no enhancement. IMPRESSION: 1) mild-moderate post radiation chronic ischemic white matter changes, are probably minimally worse. 2) no evidence of intracranial metastatic disease. 3) severe bilateral mastoid effusions.
--- NOTE | 2020-08-19 11:33 | CT ---
CT CHEST AND ABDOMEN AND PELVIS WITH IV CONTRAST: DATE: 08/19/2020. PROVIDED CLINICAL HISTORY: Lung cancer, followup. FINDINGS: Comparison 06/05/2020. Left neck mass is described on a concurrently performed CT soft tissue neck. Please see that report. The heart, pericardium, and great vessels demonstrate a stable CT appearance. Soft tissue density ab out the left subclavian and common carotid artery origins is stable. There is no evidence for thorac ic lymph node enlargement. The lungs are free of significant opacity. Emphysematous changes and biapical parenchymal scarring a re redemonstrated. The airway appears patent and of normal caliber. There is no pleural fluid or pneumothorax apparent. The liver, spleen, pancreas, kidneys, and adrenal glands demonstrate an unremarkable CT appearance. There is no bowel dilatation, inflammatory fat stranding, free fluid, or lymph node enlargement appar ent. Atherosclerosis and ectasia of the abdominal aorta is redemonstrated. The osseous structures demonstrate no concerning lytic or blastic lesions. Fracture of the left anila solomon neck is redemonstrated, stable. IMPRESSION: No interval detrimental change involving the chest, abdomen, and pelvis. Please see concurrently per formed CT soft tissue neck for details regarding the neck. POS: JEAN
== END 2020-08-19 07:59 | disposition home or self-care (01) ==
LOC: CT 07:58
PROVIDERS: ATTEND Internal Medicine Hematology & Oncology
DX: C34.12 Malignant neoplasm of upper lobe, left bronchus or lung (principal); C34.02 Malignant neoplasm of left main bronchus; C71.9 Malignant neoplasm of brain, unspecified; C79.89 Secondary malignant neoplasm of other specified sites; R59.0 Localized enlarged lymph nodes; J43.2 Centrilobular emphysema; G93.89 Other specified disorders of brain; G93.6 Cerebral edema
CPT/HCPCS: 70491; 70553; 71260; 74177; 82565; A9579; Q9967

== ENCOUNTER 2020-08-21 10:20 | Day surgery (SDC) | payer SELFPAY ==
[2020-08-21] MEDS ORDERED: Sodium Chloride 0.9% 20 ML ONE (10:26)
[2020-08-21 11:36] VITALS: BP 102/60; TEMP 98.2
== END 2020-08-21 12:53 | disposition home or self-care (01) ==
LOC: ONC/OP 10:20
PROVIDERS: ATTEND Internal Medicine Hematology & Oncology
DX: Z51.11 Encounter for antineoplastic chemotherapy (principal); C34.12 Malignant neoplasm of upper lobe, left bronchus or lung; C34.02 Malignant neoplasm of left main bronchus
CPT/HCPCS: 96367; 96375; 96413; J1100; J1453; J1642; J2405; J3490

== ENCOUNTER 2020-09-10 10:52 | Day surgery (SDC) | payer SELFPAY ==
[2020-09-10] MEDS ORDERED: Sodium Chloride 0.9% 20 ML ONE (11:21)
[2020-09-10] MEDS ORDERED: diphenhydrAMINE 25 MG CAP PO PRN (11:42)
[2020-09-10] MEDS ORDERED: Acetaminophen 500 MG TAB PO PRN (11:42)
[2020-09-10 12:56] VITALS: TEMP 98.1
[2020-09-10 16:51] VITALS: BP 127/61
[2020-09-10 17:04] LABS: Bacteria/HPF 4+ HPF (None Seen); Bilirubin Negative (Negative); Blood, Urine Trace (Negative); Clarity Turbid (Clear); Glucose, Urine (Dipstick) Normal (Negative); Ketone, Urine Negative (Negative); Leukocyte 500 Leu/uL (Negative); Nitrite 2+ (Negative); Protein, Urine (Dipstick) 30 mg/dL (Neg-Trace); Specific Gravity, Urine 1.016 (1.002-1.036); Urobilinogen Normal mg/dL (Less than 2); WBC/HPF Greater than 50 HPF (0-3)
[2020-09-10 17:11] LABS: Hemoglobin 9.1 g/dL (12.0-16.0); Mean Corpuscular HGB CONC 33.3 g/dL (32.0-36.0); Mean Corpuscular Hemoglobin 30.9 pg (27.0-31.0); Mean Corpuscular Volume 92.8 fL (78.0-98.0); Mean Platelet Volume 8.1 fL (7.4-10.4); Platelet Count 209 thou/uL (130-400); RBC Distribution Width 15.7 % (11.5-14.5); Red Blood Cell (RBC) Count 2.93 mill/uL (4.20-5.40); White Blood Cell (WBC) Count 5.3 thou/uL (4.8-10.8)
[2020-09-10 17:21] LABS: Hypochromia SLIGHT = 6-15 cells (100X) (0-5/hpf); Lymphocytes 11 % (21-51); MDiff Complete? YES; Monocytes 31 % (0-10); Neutrophil 58 % (42-75); Platelet Morphology Comment Appears Adequate; Polychromasia SLIGHT = 2-3 cells (100X) (0-2/hpf)
== END 2020-09-10 16:59 | disposition home or self-care (01) ==
LOC: ONC/OP 10:52
PROVIDERS: ATTEND Internal Medicine Hematology & Oncology
PROC: 30233N1 Transfusion of Nonautologous Red Blood Cells into Peripheral Vein, Percutaneous Approach (ICD-10-PCS; principal; 2020-09-10)
DX: D64.9 Anemia, unspecified (principal); D69.6 Thrombocytopenia, unspecified
CPT/HCPCS: 36430; 81001; 85025; 86850; 86900; 86901; J1642; P9016; Q0163

== ENCOUNTER → 2020-09-11 | Day surgery (SDC) | payer SELFPAY | LOC: ONC/OP 09:44 | PROVIDERS: ATTEND Internal Medicine Hematology & Oncology | PROC: 30233N1 Transfusion of Nonautologous Red Blood Cells into Peripheral Vein, Percutaneous Approach (ICD-10-PCS; principal; 2020-09-11) | DX: D64.9 Anemia, unspecified (principal); D69.6 Thrombocytopenia, unspecified ==

== ENCOUNTER 2020-10-02 11:46 | Day surgery (SDC) | payer SELFPAY ==
[2020-10-02] MEDS ORDERED: Sodium Chloride 0.9% 20 ML ONE (12:10)
[2020-10-02 12:34] VITALS: BP 121/59; TEMP 97.8
== END 2020-10-02 13:54 | disposition home or self-care (01) ==
LOC: ONC/OP 11:46
PROVIDERS: ATTEND Internal Medicine Hematology & Oncology
DX: Z51.11 Encounter for antineoplastic chemotherapy (principal); C34.12 Malignant neoplasm of upper lobe, left bronchus or lung; C34.02 Malignant neoplasm of left main bronchus
CPT/HCPCS: 96367; 96375; 96413; J1100; J1453; J1642; J2405; J3490

== ENCOUNTER 2020-10-14 10:20 | Inpatient (IN) | payer OTHER, SELFPAY ==
[2020-10-14] MEDS ORDERED: Ketorolac Tromethamine 30 MG/ML VIAL ONE (11:21)
[2020-10-14] MEDS ORDERED: Ondansetron PF 4 MG/2 ML Vial ONE (11:21)
[2020-10-14 12:15] LABS: ALT (SGPT) Less than 7 U/L (8-55); AST (SGOT) 6 U/L (5-34); Albumin 2.8 g/dL (3.5-5.0); Alkaline Phosphatase 146 U/L (40-110); Anion Gap 11 mmol/L (10-20); BUN (Urea Nitrogen) 17 mg/dL (9.8-20.1); Bilirubin, Total 0.3 mg/dL (0.2-1.2); Calc. Creatinine Clearance 0 mL/min (70-130); Calcium 9.5 mg/dL (7.8-10.44); Carbon Dioxide 25 mmol/L (22-29); Chloride 99 mmol/L (98-107); Globulin 3.2 g/dL (2.4-3.5); Glucose 104 mg/dL (70-105); Hemoglobin 8.6 g/dL (12.0-16.0); Lipase 7 U/L (8-78); Mean Corpuscular HGB CONC 34.3 g/dL (32.0-36.0); Mean Corpuscular Hemoglobin 32.8 pg (27.0-31.0); Mean Corpuscular Volume 95.6 fL (78.0-98.0); Mean Platelet Volume 10.1 fL (7.4-10.4); Platelet Count 10 thou/uL (130-400); Potassium 3.9 mmol/L (3.5-5.1); RBC Distribution Width 16.1 % (11.5-14.5); Red Blood Cell (RBC) Count 2.61 mill/uL (4.20-5.40); Sodium 131 mmol/L (136-145); White Blood Cell (WBC) Count 0.4 thou/uL (4.8-10.8)
[2020-10-14 12:18] LABS: MDiff Complete? YES; Platelet Morphology Comment Appears Decreased; Polychromasia SLIGHT = 2-3 cells (100X) (0-2/hpf)
[2020-10-14 14:30] LABS: SARS-CoV-2 NAA Rapid Test Not Detected (NotDetected)
[2020-10-14 14:53] LABS: Lactic Acid 1.1 mmol/L (0.5-2.2)
[2020-10-14] MEDS ORDERED: Ondansetron PF 4 MG/2 ML Vial IVP PRN (16:40)
[2020-10-14] MEDS ORDERED: Ondansetron ODT 4 MG TAB PO PRN (16:40)
[2020-10-14] MEDS ORDERED: Promethazine HCl 25 MG in Sodium Chloride 0.9% 50 ML IVPB PRN (16:44)
[2020-10-14 17:52] VITALS: BMI 21.2
[2020-10-14] MEDS: Lactated Ringer's 1,000 ML IV SCH (19:42)
[2020-10-14 20:48] LABS: Hemoglobin 9.5 g/dL (12.0-16.0); Mean Corpuscular HGB CONC 35.6 g/dL (32.0-36.0); Mean Corpuscular Hemoglobin 33.2 pg (27.0-31.0); Mean Corpuscular Volume 93.3 fL (78.0-98.0); Mean Platelet Volume 10.9 fL (7.4-10.4); Platelet Count 9 thou/uL (130-400); RBC Distribution Width 15.7 % (11.5-14.5); Red Blood Cell (RBC) Count 2.86 mill/uL (4.20-5.40); White Blood Cell (WBC) Count 0.5 thou/uL (4.8-10.8)
[2020-10-14 21:08] LABS: Hypochromia SLIGHT = 6-15 cells (100X) (0-5/hpf); MDiff Complete? YES; Platelet Morphology Comment Appears Decreased
[2020-10-14] MEDS ORDERED: Acetaminophen 325 MG TAB PO PRN (22:53)
[2020-10-14] MEDS ORDERED: Acetaminophen 500 MG TAB PO SCH (23:00)
[2020-10-14] MEDS ORDERED: Amitriptyline HCl 100 MG TAB PO SCH (23:00)
[2020-10-15] MEDS: Levothyroxine Sodium 112 MCG TAB PO SCH (04:57)
[2020-10-15 06:35] LABS: Band 12 % (5-11); Hemoglobin 8.5 g/dL (12.0-16.0); Hypochromia SLIGHT = 6-15 cells (100X) (0-5/hpf); Lymphocytes 12 % (21-51); MDiff Complete? YES; Mean Corpuscular HGB CONC 35.5 g/dL (32.0-36.0); Mean Corpuscular Hemoglobin 32.9 pg (27.0-31.0); Mean Corpuscular Volume 92.5 fL (78.0-98.0); Mean Platelet Volume 7.7 fL (7.4-10.4); Metamyelocyte 4 % (0-0); Monocytes 68 % (0-10); Neutrophil 4 % (42-75); Platelet Count 69 thou/uL (130-400); Platelet Morphology Comment Appears Decreased; RBC Distribution Width 15.8 % (11.5-14.5); Red Blood Cell (RBC) Count 2.59 mill/uL (4.20-5.40)
[2020-10-15 06:43] LABS: Anion Gap 13 mmol/L (10-20); BUN (Urea Nitrogen) 15 mg/dL (9.8-20.1); Calc. Creatinine Clearance 107 mL/min (70-130); Calcium 8.2 mg/dL (7.8-10.44); Carbon Dioxide 20 mmol/L (22-29); Chloride 100 mmol/L (98-107); Glucose 86 mg/dL (70-105); Potassium 3.6 mmol/L (3.5-5.1); Sodium 129 mmol/L (136-145)
[2020-10-15] MEDS ORDERED: Prevnar 13-Val Conj/PF 0.5 ML SYRINGE IM ONE (09:00)
[2020-10-15] MEDS ORDERED: FLU VACC QS2020-21(6MOS UP)/PF 60 MCG/0.5 ML SYRINGE IM ONE (09:00)
[2020-10-15] MEDS: Lactated Ringer's 1,000 ML IV SCH ×3 (09:33→19:14)
[2020-10-15] MEDS ORDERED: Iopamidol 370 76% 100 ML VIAL ONE (10:07)
[2020-10-15] MEDS: Ondansetron ODT 4 MG TAB PO SCH ×2 (11:49→18:16)
[2020-10-15] MEDS ORDERED: Loperamide HCl 1 MG/7.5 ML UDCUP PO PRN (16:38)
[2020-10-15] MEDS ORDERED: Amitriptyline HCl 100 MG TAB PO SCH (21:00)
[2020-10-16] MEDS: Ondansetron ODT 4 MG TAB PO SCH ×2 (00:27→06:11)
[2020-10-16] MEDS: Lactated Ringer's 1,000 ML IV SCH (04:51)
[2020-10-16] MEDS: Levothyroxine Sodium 112 MCG TAB PO SCH (06:09)
[2020-10-16 06:16] LABS: Band 7 % (5-11); Hemoglobin 8.3 g/dL (12.0-16.0); Lymphocytes 7 % (21-51); MDiff Complete? YES; Mean Corpuscular HGB CONC 34.5 g/dL (32.0-36.0); Mean Corpuscular Hemoglobin 31.7 pg (27.0-31.0); Mean Corpuscular Volume 92.1 fL (78.0-98.0); Mean Platelet Volume 7.9 fL (7.4-10.4); Monocytes 29 % (0-10); Neutrophil 57 % (42-75); Platelet Count 56 thou/uL (130-400); Platelet Morphology Comment Appears Decreased; Red Blood Cell (RBC) Count 2.61 mill/uL (4.20-5.40); White Blood Cell (WBC) Count 3.6 thou/uL (4.8-10.8)
[2020-10-16 06:23] LABS: Anion Gap 13 mmol/L (10-20); BUN (Urea Nitrogen) 5 mg/dL (9.8-20.1); Calc. Creatinine Clearance 107 mL/min (70-130); Calcium 7.8 mg/dL (7.8-10.44); Carbon Dioxide 22 mmol/L (22-29); Chloride 101 mmol/L (98-107); Glucose 73 mg/dL (70-105); Potassium 3.2 mmol/L (3.5-5.1); Sodium 133 mmol/L (136-145)
[2020-10-16] MEDS ORDERED: Magnevist 469MG/ML 20 ML VIAL ONE (10:41)
[2020-10-16 12:07] VITALS: BP 129/60; TEMP 98
== END 2020-10-16 12:30 | disposition home or self-care (01) | DRG 809 ==
LOC: ERS 10:20 → ONC 15:53
PROVIDERS: ADMIT Student in an Organized Health Care Education/Training Program; ATTEND Student in an Organized Health Care Education/Training Program
PROC: 30233R1 Transfusion of Nonautologous Platelets into Peripheral Vein, Percutaneous Approach (ICD-10-PCS; principal; 2020-10-14)
PROC: 30233N1 Transfusion of Nonautologous Red Blood Cells into Peripheral Vein, Percutaneous Approach (ICD-10-PCS; 2020-10-14)
DX: D61.810 Antineoplastic chemotherapy induced pancytopenia (principal); E87.1 Hypo-osmolality and hyponatremia; C34.90 Malignant neoplasm of unspecified part of unspecified bronchus or lung; Z20.822 Contact with and (suspected) exposure to COVID-19; E03.9 Hypothyroidism, unspecified; G62.9 Polyneuropathy, unspecified; R22.1 Localized swelling, mass and lump, neck; N80.9 Endometriosis, unspecified; D63.0 Anemia in neoplastic disease; R62.7 Adult failure to thrive; T45.1X5A Adverse effect of antineoplastic and immunosuppressive drugs, initial encounter; E86.0 Dehydration; Z68.21 Body mass index [BMI] 21.0-21.9, adult; Z79.890 Hormone replacement therapy; Z28.21 Immunization not carried out because of patient refusal; Z79.899 Other long term (current) drug therapy; Z90.710 Acquired absence of both cervix and uterus; Z87.891 Personal history of nicotine dependence
CPT/HCPCS: 0240U; 36415; 36430; 70491; 70553; 71045; 71260; 74177; 76536; 80048; 80053; 83605; 83690; 85025; 86850; 86900; 86901; 87040; 87324; 87449; 96372; 96374; 96375; A9579; J1447; J1642; J1885; J2405; P9016; P9035; Q9967

== ENCOUNTER 2020-12-05 11:17 | Day surgery (SDC) | payer OTHER ==
[~2020-12-05 11:17] MED LIST changes: +Acetaminophen 500 MG TAB PO PRN; -Dexamethasone Sod Phosphate 10 MG, Ondansetron 2MG/ML MDV 10 MG in Sodium Chloride 0.9%... IVPB SCH; -LURBINECTEDIN IV SCH; +Ondansetron 2MG/ML MDV 15 MG, Dexamethasone Sod Phosphate 10 MG in Sodium Chloride 0.9%... IVPB SCH; -SODIUM CHLORIDE 0.9% IV SCH; +diphenhydrAMINE 50 MG/ML VIAL IVP PRN
== END 2020-12-05 14:33 | disposition home or self-care (01) ==
LOC: ONC/OP 11:17
PROVIDERS: ATTEND Internal Medicine Hematology & Oncology
DX: Z51.11 Encounter for antineoplastic chemotherapy (principal); C34.02 Malignant neoplasm of left main bronchus; C34.12 Malignant neoplasm of upper lobe, left bronchus or lung
CPT/HCPCS: 96375; 96413; J1100; J1200; J2405; J9033

== ENCOUNTER 2020-12-06 10:24 | Day surgery (SDC) | payer OTHER ==
[~2020-12-06 10:24] MED LIST changes: -Acetaminophen 500 MG TAB PO PRN; +Acetaminophen 500 MG TAB PO SCH; +Dexamethasone Sod Phosphate 10 MG, Ondansetron 2MG/ML MDV 15 MG in Sodium Chloride 0.9%... IVPB SCH; -Ondansetron 2MG/ML MDV 15 MG, Dexamethasone Sod Phosphate 10 MG in Sodium Chloride 0.9%... IVPB SCH; +Sodium Chloride 0.9% 20 ML ONE; +diphenhydrAMINE 25 MG in Sodium Chloride 0.9% 50 ML IVPB SCH; -diphenhydrAMINE 50 MG/ML VIAL IVP PRN
[2020-12-06] MEDS ORDERED: Sodium Chloride 0.9% 20 ML ONE (10:44)
[2020-12-06 11:12] VITALS: BP 125/69; TEMP 97.9
== END 2020-12-06 12:30 | disposition home or self-care (01) ==
LOC: ONC/OP 10:24
PROVIDERS: ATTEND Internal Medicine Hematology & Oncology
DX: Z51.11 Encounter for antineoplastic chemotherapy (principal); C34.02 Malignant neoplasm of left main bronchus; C34.12 Malignant neoplasm of upper lobe, left bronchus or lung
CPT/HCPCS: 96375; 96413; J1100; J1642; J2405

== ENCOUNTER 2020-12-26 11:21 | Day surgery (SDC) | payer OTHER ==
[~2020-12-26 11:21] MED LIST changes: +Acetaminophen 500 MG TAB PO PRN; -Acetaminophen 500 MG TAB PO SCH; -Sodium Chloride 0.9% 20 ML ONE
[2020-12-26] MEDS ORDERED: Sodium Chloride 0.9% 20 ML ONE (11:29)
[2020-12-26 11:35] VITALS: BP 119/67
[2020-12-27] MEDS ORDERED: Dexamethasone Sod Phosphate 10 MG, Ondansetron 2MG/ML MDV 15 MG in Sodium Chloride 0.9%... IVPB SCH (01:32)
== END 2020-12-26 13:55 | disposition home or self-care (01) ==
LOC: ONC/OP 11:21
PROVIDERS: ATTEND Internal Medicine Hematology & Oncology
DX: Z51.11 Encounter for antineoplastic chemotherapy (principal); C34.02 Malignant neoplasm of left main bronchus; C34.12 Malignant neoplasm of upper lobe, left bronchus or lung
CPT/HCPCS: 96375; 96413; J1100; J1200; J1642; J2405

== ENCOUNTER 2020-12-27 10:38 | Day surgery (SDC) | payer OTHER ==
[~2020-12-27 10:38] MED LIST changes: -Acetaminophen 500 MG TAB PO PRN; -Dexamethasone Sod Phosphate 10 MG, Ondansetron 2MG/ML MDV 15 MG in Sodium Chloride 0.9%... IVPB SCH; +Ondansetron 2MG/ML MDV 15 MG, Dexamethasone Sod Phosphate 10 MG in Sodium Chloride 0.9%... IVP SCH; -diphenhydrAMINE 25 MG in Sodium Chloride 0.9% 50 ML IVPB SCH
[2020-12-27 11:07] VITALS: BP 115/76; TEMP 98
[2020-12-27] MEDS ORDERED: Sodium Chloride 0.9% 20 ML ONE (12:02)
== END 2020-12-27 14:06 | disposition home or self-care (01) ==
LOC: ONC/OP 10:38
PROVIDERS: ATTEND Internal Medicine Hematology & Oncology
DX: Z51.11 Encounter for antineoplastic chemotherapy (principal); C34.02 Malignant neoplasm of left main bronchus; C34.12 Malignant neoplasm of upper lobe, left bronchus or lung
CPT/HCPCS: 96375; 96413; J1100; J1642; J2405

== ENCOUNTER 2021-01-16 11:38 | Day surgery (SDC) | payer OTHER ==
[~2021-01-16 11:38] MED LIST changes: +Acetaminophen 500 MG TAB PO SCH; -Ondansetron 2MG/ML MDV 15 MG, Dexamethasone Sod Phosphate 10 MG in Sodium Chloride 0.9%... IVP SCH; +Ondansetron 2MG/ML MDV 15 MG, Dexamethasone Sod Phosphate 10 MG in Sodium Chloride 0.9%... IVPB SCH; +diphenhydrAMINE 25 MG in Sodium Chloride 0.9% 50 ML IVPB SCH
[2021-01-16] MEDS ORDERED: Sodium Chloride 0.9% 20 ML ONE (11:56)
== END 2021-01-16 13:06 | disposition home or self-care (01) ==
LOC: ONC/OP 11:38
PROVIDERS: ATTEND Internal Medicine Hematology & Oncology
DX: Z51.11 Encounter for antineoplastic chemotherapy (principal); C34.02 Malignant neoplasm of left main bronchus; C34.12 Malignant neoplasm of upper lobe, left bronchus or lung
CPT/HCPCS: 96375; 96413; J1100; J1200; J1642; J2405

== ENCOUNTER 2021-01-17 11:01 | Day surgery (SDC) | payer OTHER ==
[~2021-01-17 11:01] MED LIST changes: -Acetaminophen 500 MG TAB PO SCH; +Sodium Chloride 0.9% 20 ML ONE; -diphenhydrAMINE 25 MG in Sodium Chloride 0.9% 50 ML IVPB SCH
== END 2021-01-17 12:34 | disposition home or self-care (01) ==
LOC: ONC/OP 11:01
PROVIDERS: ATTEND Internal Medicine Hematology & Oncology
DX: Z51.11 Encounter for antineoplastic chemotherapy (principal); C34.12 Malignant neoplasm of upper lobe, left bronchus or lung; C34.02 Malignant neoplasm of left main bronchus
CPT/HCPCS: 96375; 96413; J1100; J1642; J2405

== ENCOUNTER 2021-02-06 11:22 | Day surgery (SDC) | payer OTHER, SELFPAY ==
[~2021-02-06 11:22] MED LIST changes: +Acetaminophen 500 MG TAB PO SCH; -Sodium Chloride 0.9% 20 ML ONE; +diphenhydrAMINE 25 MG in Sodium Chloride 0.9% 50 ML IVPB SCH
[2021-02-06 12:21] VITALS: BP 106/66; TEMP 97.8
== END 2021-02-06 13:20 | disposition home or self-care (01) ==
LOC: ONC/OP 11:22
PROVIDERS: ATTEND Internal Medicine Hematology & Oncology
DX: Z51.11 Encounter for antineoplastic chemotherapy (principal); C34.02 Malignant neoplasm of left main bronchus; C34.12 Malignant neoplasm of upper lobe, left bronchus or lung
CPT/HCPCS: 96375; 96413; J1100; J1200; J2405

== ENCOUNTER → 2021-02-07 | Day surgery (SDC) | payer OTHER, SELFPAY ==
[~2021-02-07] MED LIST changes: -Acetaminophen 500 MG TAB PO SCH; +Sodium Chloride 0.9% 20 ML ONE; -diphenhydrAMINE 25 MG in Sodium Chloride 0.9% 50 ML IVPB SCH
[2021-02-07 11:04] VITALS: BP 113/69; TEMP 97.7
== END ==
LOC: ONC/OP 10:31
PROVIDERS: ATTEND Internal Medicine Hematology & Oncology
DX: Z51.11 Encounter for antineoplastic chemotherapy (principal); C34.12 Malignant neoplasm of upper lobe, left bronchus or lung; C34.02 Malignant neoplasm of left main bronchus
CPT/HCPCS: 96375; 96413; J1100; J1642; J2405

== ENCOUNTER 2021-02-25 08:57 | Outpatient (CLI) | payer SELFPAY ==
[2021-02-25] MEDS ORDERED: Magnevist 469MG/ML 20 ML VIAL ONE (09:08)
== END 2021-02-25 08:58 | disposition home or self-care (01) ==
LOC: CT 08:57
PROVIDERS: ATTEND Internal Medicine Hematology & Oncology
DX: C79.31 Secondary malignant neoplasm of brain (principal); C34.02 Malignant neoplasm of left main bronchus; R22.1 Localized swelling, mass and lump, neck
CPT/HCPCS: 70491; 70553; 71260; 74177; 78306; A9503; A9579

== ENCOUNTER 2021-02-27 12:00 | Day surgery (SDC) | payer SELFPAY ==
[~2021-02-27 12:00] MED LIST changes: +Acetaminophen 500 MG TAB PO SCH; -Sodium Chloride 0.9% 20 ML ONE; +diphenhydrAMINE 25 MG in Sodium Chloride 0.9% 50 ML IVPB SCH
[2021-02-27] MEDS ORDERED: Sodium Chloride 0.9% 20 ML ONE (12:12)
[2021-02-27 12:34] VITALS: BP 129/59
== END 2021-02-27 13:55 | disposition home or self-care (01) ==
LOC: ONC/OP 12:00
PROVIDERS: ATTEND Internal Medicine Hematology & Oncology
DX: Z51.11 Encounter for antineoplastic chemotherapy (principal); C34.02 Malignant neoplasm of left main bronchus; C34.12 Malignant neoplasm of upper lobe, left bronchus or lung
CPT/HCPCS: 96375; 96413; J1100; J1200; J1642; J2405

== ENCOUNTER 2021-02-28 11:01 | Day surgery (SDC) | payer SELFPAY ==
[~2021-02-28 11:01] MED LIST changes: -Acetaminophen 500 MG TAB PO SCH; -diphenhydrAMINE 25 MG in Sodium Chloride 0.9% 50 ML IVPB SCH
[2021-02-28] MEDS ORDERED: Sodium Chloride 0.9% 20 ML ONE (11:04)
[2021-02-28 11:28] VITALS: BP 98/54; TEMP 98.4
== END 2021-02-28 12:39 | disposition home or self-care (01) ==
LOC: ONC/OP 11:01
PROVIDERS: ATTEND Internal Medicine Hematology & Oncology
DX: Z51.11 Encounter for antineoplastic chemotherapy (principal); C34.12 Malignant neoplasm of upper lobe, left bronchus or lung; C34.02 Malignant neoplasm of left main bronchus
CPT/HCPCS: 96375; 96413; J1100; J1642; J2405